=== PATIENT | female | born 1940 | race Caucasian/White ===

== ENCOUNTER → 2023-10-03 07:01 | Outpatient (REF) | payer MEDICARE, OTHER, SELFPAY ==
[2023-10-03 07:52] LABS: % Basophils 0.8 % (0-2); % Eosinophils 3.8 % (0-6); % Immature Granulocytes 0.2 % (0-0.5); % Lymphocytes 35.4 % (20.5-51.1); % Monocytes 9.3 % (1.7-9.3); % Neutrophils 50.5 % (42.2-75.2); Absolute Eosinophils 0.2 10^3/uL (0-0.7); Absolute Lymphocytes 1.7 10^3/uL (1.2-3.4); Absolute Monocytes 0.4 10^3/uL (0.1-0.6); Absolute Neutrophils 2.4 10^3/uL (1.4-6.5); Hematocrit 46.2 % (37.0-47.0); Hemoglobin 15.1 g/dL (12.0-16.0); Mean Corp Hgb Conc. 32.7 g/dL (33.0-37.0); Mean Corpuscular Hgb 29.7 pg (27.0-31.0); Mean Corpuscular Volume 90.8 fL (81.0-99.0); Mean Platelet Volume 8.9 fL (7.4-10.4); Nucleated Red Blood Cells % 0 %; Platelet Count 320 10^3/uL (130-400); Red Blood Cell Count 5.09 10^6/uL (4.20-5.40); Red Cell Dist. Width 13.2 % (11.5-14.5); White Blood Cell Count 4.8 10^3/uL (4.8-10.8)
[2023-10-03 09:14] LABS: ALT (SGPT) 13 U/L (0-35); AST (SGOT) 27 U/L (14-36); Albumin 4.2 g/dl (3.5-5.0); Alkaline Phosphatase 70 U/L (38-126); Blood Urea Nitrogen 18 mg/dl (7-17); Calcium 9.7 mg/dl (8.4-10.2); Carbon Dioxide 30 mmol/L (22-30); Chloride 101 mmol/L (98-107); Glucose 90 mg/dl (70-99); HDL Cholesterol 85 mg/dl; LDL Cholesterol, Calculated 123 mg/dl; Sodium 137 mmol/L (135-145); Total Bilirubin 0.6 mg/dl (0.2-1.3); Total Cholesterol 218 mg/dl (50-199); Total Protein 6.7 g/dl (6.3-8.2); Triglyceride 51 mg/dl (10-149); Very Low Density Lipoprotein 10 mg/dl (0-30); eGFR > 60.00
[2023-10-03 09:45] LABS: TSH 7.23 uIU/ml (0.47-4.68)
== END ==
LOC: REG 07:01
PROVIDERS: ATTENDING PHYSICIAN Internal Medicine
DX: E03.9 Hypothyroidism, unspecified (principal); E78.00 Pure hypercholesterolemia, unspecified; E78.1 Pure hyperglyceridemia
CPT/HCPCS: 36415; 80053; 80061; 84443; 85025

== ENCOUNTER → 2024-02-02 07:13 | Outpatient (REF) | payer MEDICARE, OTHER, SELFPAY ==
[2024-02-02 09:22] LABS: ALT (SGPT) 15 U/L (0-35); AST (SGOT) 26 U/L (14-36); Albumin 4.3 g/dl (3.5-5.0); Alkaline Phosphatase 73 U/L (38-126); Blood Urea Nitrogen 19 mg/dl (7-17); Calcium 9.5 mg/dl (8.4-10.2); Carbon Dioxide 30 mmol/L (22-30); Chloride 98 mmol/L (98-107); Glucose 98 mg/dl (70-99); HDL Cholesterol 91 mg/dl; LDL Cholesterol, Calculated 143 mg/dl; Potassium 4.7 mmol/L (3.5-5.1); Sodium 138 mmol/L (135-145); Total Bilirubin 0.5 mg/dl (0.2-1.3); Total Cholesterol 247 mg/dl (50-199); Total Protein 6.7 g/dl (6.3-8.2); Triglyceride 68 mg/dl (10-149); Very Low Density Lipoprotein 13 mg/dl (0-30); eGFR 55.55
[2024-02-02 09:51] LABS: TSH Reflex To Free T4 4.87 uIU/ml (0.47-4.68)
[2024-02-02 10:19] LABS: Free T4 0.92 ng/dl (0.78-2.19)
== END ==
LOC: REG 07:13
PROVIDERS: ATTENDING PHYSICIAN Internal Medicine
DX: E03.9 Hypothyroidism, unspecified (principal); E78.00 Pure hypercholesterolemia, unspecified; E87.1 Hypo-osmolality and hyponatremia
CPT/HCPCS: 36415; 80053; 80061; 84439; 84443

== ENCOUNTER → 2024-02-19 14:29 | Outpatient (REF) | payer MEDICARE, OTHER, SELFPAY | LOC: RAD 14:29 | PROVIDERS: ATTENDING PHYSICIAN Internal Medicine | DX: Z78.0 Asymptomatic menopausal state (principal) | CPT/HCPCS: 77080 ==

== ENCOUNTER 2024-04-30 15:17 | Observation (INO) | payer MEDICARE, OTHER, SELFPAY ==
[2024-04-30] VITALS (12 sets, daily range): BP systolic 148–186; BP diastolic 86–118; BMI 22.3
--- NOTE | 2024-04-30 12:23 | ED.GENMED ---
History of Present Illness
<Justina Urias PA-C - Last Filed: 05/01/24 00:16>
General
Chief Complaint: Change in Mental Status
Source: patient, family (daughter at bedside) and snf (Nurse at [facility])
Exam Limitations: none
Time Seen by Provider: 04/30/24 11:59
Nursing documentation reviewed up to this point in time: agreed with
History of Present Illness
History of Present Illness:
Patient is a 84 year old female with hx HLD presenting to the emergency department via EMS from [facility] due to episode of reported unresponsiveness this morning. It seems that patient had just finished her chair PT session
when she stood up and passed out. She supposedly had two similar episodes back to back. Per snf - patient had a 'weak' pulse and a few chest compressions were performed prior to patient seemingly waking up.
By time EMS did arrive - patient was alert and oriented, talking.
Patient denies any current complaints at this time - although does not clearly remember events from this morning. She does deny at headache, neck pain, chest pain, shortness of breath, numbness/tingling in extremities
Of note - patient did sustain a mechanical trip and fall yesterday and was seen at [facility] where she had two negative CT scand of head and a minor skin tear on left palm repaired with sutures.
Past History
<Justina Urias PA-C - Last Filed: 05/01/24 00:16>
Past History
ED Past Medical History: Hypercholesterolemia, Hypothyroidism, Psychiatric (Depression) and Other (Fibromyalgia)
ED Past Surgical History: None
Social History
Tobacco: Non-smoker
Alcohol: None
Drug: None
Personal:
Living: alone
Employment: Retired
Review of Systems
<Justina Urias PA-C - Last Filed: 05/01/24 00:16>
Review of Systems
Allergies reviewed?: Yes
All Other Systems: ROS reviewed and negative except as documented in HPI and ROS
Phy Exam
<Justina Urias PA-C - Last Filed: 05/01/24 00:16>
Physical Exam
Physical Exam:
Vitals: Patient's vital signs are stable. Afebrile
General: Patient is well appearing, no acute distress. Nontoxic appearing
Skin: Warm and dry, no rashes. Skin tear to left palm with [address]
Head: Normocephalic, atraumatic
Eyes: Sclera nonicteric. EOMs intact. PERRL. Visual [place] intact. No nystagmus.
Throat: Protecting airway
Neck: Normal ROM, no cervical spine tenderness, no meningismus
Cardiac: Regular rate and rhythm, no murmurs.
Pulm: Normal respiratory effort, no wheezes, rales, rhonchi heard on exam.
Abdomen: Abdomen soft. No abdominal tenderness.
Extremities: No evidence of cyanosis or edema. Strength 5/5 in upper and lower exremities.
Neuro: AAOx3. CN II-XII intact. Speech fluid. No facial droop. Sensation fully intact. No focal neurologic deficits.
Psychiatric: Normal affect.
Scores
<Justina Urias PA-C - Last Filed: 05/01/24 00:16>
NIH Stroke Score
Level of Consciousness: 0 - Alert
LOC Questions: 0-Answers both correctly
LOC Commands: 0-Performs both correctly
Best Horizontal Gaze: 0-Normal
Visual [place]: 0=Normal, no visual loss
Facial Palsy: 0=Normal, symmetrical
Motor - Right Arm: 0=No drift 10 seconds
Motor - Left Arm: 0=No drift 10 seconds
Motor - Right Le-No drift 5 seconds
Motor - Left Le-No drift 5 seconds
Limb Ataxia: 0-Absent
Sensation: 0-Normal
Best Language: 1-Mild aphasia
Dysarthria: 0-Normal
Extinction and Inattention: 0-No abnormality
Total Score:: 1
<Marcello Adan DO - Last Filed: 04/30/24 15:23>
NIH Stroke Score
Total Score:: 1
Course
<Justina Urias PA-C - Last Filed: 05/01/24 00:16>
Orders/Labs/Results
Orders:
Orders
04/30/24 Breakfast
Regular
At Your Request: Limited Participation
Does patient need a safe tray?: No
04/30/24 11:55
Electrocardiogram (*1) Urgent
Reason for Study: Chest Pain
Cardiac Monitoring- Treatment ONCE
EKG- Treatment ONCE
IV Insert/Care/Rem.- Treatment PRN
04/30/24 12:09
Complete Blood Count/With Diff Urgent
Comprehensive Metabolic Panel Urgent
Troponin I Urgent
04/30/24 12:29
0.9% Sodium Chloride 1000 ml [Nss] 1,000 ml IV BOLUS
04/30/24 12:30
CT Head W/o Iv Contrast Urgent
Comment:
Reason For Exam: syncope, recent fall
04/30/24 14:41
Admit/Transfer Patient As Directed
Co-Sign Provider:
Level of Care: Observation services
Assign to:: Telemetry
Physician / Group: Arin
Diagnosis: Syncope
Reason for Telemetry: Syncope
Date to Stop Telemetry: 05/02/24
Time to Stop Telemetry: 11:00
PRN Pain Medication Management As Directed
May give lesser potent ordered pain med per pt: Yes
preference::
Protocol:: Medication orders for pain may be administered in a
manner that supports deferring to patient preference
when the pt is:
- Requesting an ordered lesser potent pain medication.
Least to most potent pain medications are defined
as: acetaminophen < NSAID < tramadol < opioids
(morphine, oxycodone, hydromorphone).
- Requesting a lesser dose of the same medication IF
ORDERED.
- Requesting a less intrusive route of administration
if both routes are prescribed by the provider (PO <
IV).
04/30/24 14:42
Code Status As Directed
Resuscitation Status: Full Code
04/30/24 17:46
Acetaminophen [Tylenol] 650 mg PO Q4HPRN PRN
04/30/24 17:46
Echo 2D MMode Color/Doppler Routine
Reason for Study: syncope
Activity As Directed
Activity Level: Out of Bed- Chair
I&O [Intake/ Output] As Directed
Frequency: q12h
Orthostatic Vital Signs As Directed
Orthostatic VS Frequency: BID
Pneumatic Compression Sleeves As Directed
Type: Knee high
Vital Signs As Directed
Frequency: Per unit guidelines
Weight As Directed
Frequency: Daily
DX Deep Vein Thrombosis Video Routine
04/30/24 18:00
Atorvastatin [Lipitor] 10 mg PO QPM
Nortriptyline [Pamelor] 50 mg PO QPM
05/01/24 06:00
Basic Metabolic Panel IN AM
TSH Reflex To Free T4 IN AM
Levothyroxine [Synthroid] 50 mcg PO DAILY @ 0600
05/01/24 08:00
Aripiprazole [Abilify] 1 mg PO DAILY
Polyethylene Glycol Powder [Miralax] 17 grams PO Q72H
05/02/24 11:00
DC Protocol for Telemetry ONCE
Abnormal Lab Results
04/30/24
12:09
Absolute Monos (auto) 0.7 H 10^3/uL
(0.1-0.6)
Lymphocytes % 16.6 L %
(20.5-51.1)
Sodium 132 L mmol/L
(135-145)
Chloride 96 L mmol/L
(98-107)
BUN 19 H mg/dl
(7-17)
Glucose 105 H mg/dl
(70-99)
Total Protein 6.1 L g/dl
(6.3-8.2)
04/30/24 12:09
04/30/24 12:09
Vital Signs
Initial and Last Documented VS:
Initial Vital Signs
Pulse Resp BP
79 19 148/86
04/30/24 11:55 04/30/24 11:55 04/30/24 11:55
Last Documented Vital Signs
Temp Pulse Resp BP Pulse Ox
97.7 F 89 18 182/104 99
04/30/24 17:42 04/30/24 17:42 04/30/24 17:42 04/30/24 17:42 04/30/24 17:58
<Marcello Adan, DO - Last Filed: 04/30/24 15:23>
Orders/Labs/Results
Orders:
Orders
04/30/24 Breakfast
Regular
At Your Request: Limited Participation
Does patient need a safe tray?: No
04/30/24 11:55
Electrocardiogram (*1) Urgent
Reason for Study: Chest Pain
Cardiac Monitoring- Treatment ONCE
EKG- Treatment ONCE
IV Insert/Care/Rem.- Treatment PRN
04/30/24 12:09
Complete Blood Count/With Diff Urgent
Comprehensive Metabolic Panel Urgent
Troponin I Urgent
04/30/24 12:29
0.9% Sodium Chloride 1000 ml [Nss] 1,000 ml IV BOLUS
04/30/24 12:30
CT Head W/o Iv Contrast Urgent
Comment:
Reason For Exam: syncope, recent fall
04/30/24 14:41
Admit/Transfer Patient As Directed
Co-Sign Provider:
Level of Care: Observation services
Assign to:: Telemetry
Physician / Group: Arin
Diagnosis: Syncope
Reason for Telemetry: Syncope
Date to Stop Telemetry: 05/02/24
Time to Stop Telemetry: 11:00
PRN Pain Medication Management As Directed
May give lesser potent ordered pain med per pt: Yes
preference::
Protocol:: Medication orders for pain may be administered in a
manner that supports deferring to patient preference
when the pt is:
- Requesting an ordered lesser potent pain medication.
Least to most potent pain medications are defined
as: acetaminophen < NSAID < tramadol < opioids
(morphine, oxycodone, hydromorphone).
- Requesting a lesser dose of the same medication IF
ORDERED.
- Requesting a less intrusive route of administration
if both routes are prescribed by the provider (PO <
IV).
04/30/24 14:42
Code Status As Directed
Resuscitation Status: Full Code
04/30/24 17:46
Acetaminophen [Tylenol] 650 mg PO Q4HPRN PRN
04/30/24 17:46
Echo 2D MMode Color/Doppler Routine
Reason for Study: syncope
Activity As Directed
Activity Level: Out of Bed- Chair
I&O [Intake/ Output] As Directed
Frequency: q12h
Orthostatic Vital Signs As Directed
Orthostatic VS Frequency: BID
Pneumatic Compression Sleeves As Directed
Type: Knee high
Vital Signs As Directed
Frequency: Per unit guidelines
Weight As Directed
Frequency: Daily
DX Deep Vein Thrombosis Video Routine
04/30/24 18:00
Atorvastatin [Lipitor] 10 mg PO QPM
Nortriptyline [Pamelor] 50 mg PO QPM
05/01/24 06:00
Basic Metabolic Panel IN AM
TSH Reflex To Free T4 IN AM
Levothyroxine [Synthroid] 50 mcg PO DAILY @ 0600
05/01/24 08:00
Aripiprazole [Abilify] 1 mg PO DAILY
Polyethylene Glycol Powder [Miralax] 17 grams PO Q72H
05/02/24 11:00
DC Protocol for Telemetry ONCE
Abnormal Lab Results
04/30/24
12:09
Absolute Monos (auto) 0.7 H 10^3/uL
(0.1-0.6)
Lymphocytes % 16.6 L %
(20.5-51.1)
Sodium 132 L mmol/L
(135-145)
Chloride 96 L mmol/L
(98-107)
BUN 19 H mg/dl
(7-17)
Glucose 105 H mg/dl
(70-99)
Total Protein 6.1 L g/dl
(6.3-8.2)
04/30/24 12:09
04/30/24 12:09
Vital Signs
Initial and Last Documented VS:
Initial Vital Signs
Pulse Resp BP
79 19 148/86
04/30/24 11:55 04/30/24 11:55 04/30/24 11:55
Last Documented Vital Signs
Temp Pulse Resp BP Pulse Ox
97.7 F 89 18 182/104 99
04/30/24 17:42 04/30/24 17:42 04/30/24 17:42 04/30/24 17:42 04/30/24 17:58
<Justina Urias PA-C - Last Filed: 05/01/24 00:16>
MDM/Problems Addressed
Differential Diagnosis Includes:
Not limited to: vasovagal syncope, orthostatic hypotension, cardiac arrhythmia, CVA, etc
MDM/Problems Addressed:
84 year old female presenting following suspected syncopal event this morning. Patient did receive a few chest compressions due to nursing staff feeling weak/absent pulse. Patient arrives via EMS alert and oriented. Patient is conversational and
answering questions appropriately. Cardio/pulmonary assessment unremarkable. Patient has strong and equal pulses. No focal neurologic deficits. She does have very minor difficulty finding words. NIH of 1. Vital signs are stable. EKG obtained in
triage shows NSR without any acute signs of ischemia. History most consistent with a syncopal event. Lower suspicion for central process such as CVA although in differential. Will obtain basic labs and head CT. Will give IVF.
Update: Labs reviewed. No clinically significant abnormalities. Troponin undetectable. CT head without any acute abnormalities.
Update: After speaking with daughter - it seems there was an additional syncopal event a few weeks ago while patient was sitting. Given patient with multiple high risk syncopal events - concern for possible arrhythmia vs underlying cardiac etiology.
Patient will be admitted to hospital for cardiac consult and further telemetry monitoring. Patient accepted to hospitalist condition in stable condition.
Chronic conditions affecting care:
HLD
Acute Exacerbation and/or Progression of Chronic Illness:
N/A
<Justina Urias PA-C - Last Filed: 05/01/24 00:16>
*Radiology
Radiology exam reviewed: preliminary read by ED provider (Reviewed by me - no acute intracranial abnormalities) and radiology read reviewed
*Pulse Oximetry
Patient hypoxic: no
*EKG
Interpreted by ED Provider?: Yes
EKG Intrepretation Date: 05/01/24
Interpretation: normal
Comparison EKG: changes noted
Heart Rate: 79
Rate: normal
Rhythm: sinus
[place]: normal axis
Interval: normal interval
QRS Pattern: normal QRS
Ischemia: no ischemia
*Abalone Sheller Interpretation
Rate: normal
Interpretation: normal
Heart Rate: 74
Rhythm: sinus
*Critical Care Note
Total Time (30-74mins, 75-104mins- exclusive of procedures): Not Applicable
<Justina Urias PA-C - Last Filed: 05/01/24 00:16>
Patient Management
Discussion with other providers: Hospitalist
Escalation/DeEscalation of care consider admission/obs:
Admit for cardiac consult/ telemetry monitoring
ED Attending Note
<Justina Urias PA-C - Last Filed: 05/01/24 00:16>
-
Portions of this chart may have been created with voice recognition software.� Occasional wrong word or��sound alike� substitutions may have occurred due to the inherent limitations of voice recognition software.
<Marcello Adan DO - Last Filed: 04/30/24 15:23>
ED Attending Note
Patient seen and examined by attending physician: Yes
I performed a history and physical exam of patient and discussed management with resident, I reviewed resident's note and agree with documented findings and plan of care.: Yes
ED Attending Note:
I reviewed and agree with history and treatment plan by Justina Santiago. My exam reveals 84-year-old female in no acute distress. Patient has had multiple syncope episodes. Unclear etiology. She had several chest compressions after syncope.
Patient requires further evaluation and monitoring. No dysrhythmia seen on monitoring or EKG in ED. Admit to hospitalist.
Discharge Plan
Departure
Patient Disposition: Admit
Date of Disposition: 04/30/24
Time of Disposition: 14:13
Presentation/result/management discussed w/ accepting MD/DO: Hospitalist
Discharge Problem:
Syncope
Interventions
Interventions:
*Risk Screen - Suicide Last Done: 04/30/24 11:57
*General Assessment Last Done: 04/30/24 11:57
*Neglect/Abuse Screening Last Done: 04/30/24 11:57
*ED COVID-19 Vaccine History Last Done: 04/30/24 11:57
*Nursing Disposition Last Done: 04/30/24 17:23
ED- Neurological Assessment Last Done: 04/30/24 16:17
ED Swallowing Screen Last Done: 04/30/24 16:16
Discharge Date and Time
Discharge Date/Time: 04/30/24 17:23
[2024-04-30 12:25] LABS: % Basophils 0.5 % (0-2); % Eosinophils 0.1 % (0-6); % Immature Granulocytes 0.4 % (0-0.5); % Lymphocytes 16.6 % (20.5-51.1); % Monocytes 9.2 % (1.7-9.3); % Neutrophils 73.2 % (42.2-75.2); Absolute Lymphocytes 1.3 10^3/uL (1.2-3.4); Absolute Monocytes 0.7 10^3/uL (0.1-0.6); Absolute Neutrophils 5.5 10^3/uL (1.4-6.5); Hematocrit 42.4 % (37.0-47.0); Mean Corpuscular Hgb 30.2 pg (27.0-31.0); Mean Corpuscular Volume 91.4 fL (81.0-99.0); Nucleated Red Blood Cells % 0 %; Platelet Count 241 10^3/uL (130-400); Red Blood Cell Count 4.64 10^6/uL (4.20-5.40); Red Cell Dist. Width 13.7 % (11.5-14.5); White Blood Cell Count 7.5 10^3/uL (4.8-10.8)
[2024-04-30 12:46] LABS: ALT (SGPT) 15 U/L (0-35); AST (SGOT) 24 U/L (14-36); Albumin 3.9 g/dl (3.5-5.0); Alkaline Phosphatase 52 U/L (38-126); Blood Urea Nitrogen 19 mg/dl (7-17); Calcium 8.7 mg/dl (8.4-10.2); Carbon Dioxide 26 mmol/L (22-30); Chloride 96 mmol/L (98-107); Glucose 105 mg/dl (70-99); Potassium 4.8 mmol/L (3.5-5.1); Sodium 132 mmol/L (135-145); Total Bilirubin 0.6 mg/dl (0.2-1.3); Total Protein 6.1 g/dl (6.3-8.2); eGFR > 60.00
[2024-04-30] MEDS: NSS 1000 IV (12:46)
[2024-04-30 12:57] LABS: Troponin I < 0.012 ng/ml
--- NOTE | 2024-04-30 14:27 | HPS.HSE ---
Family Physician
-
Family Physician: INTERVIEWE UNKNOWN - PT NOT
Chief Complaint
-
Syncope
History of Present Illness
Patient is an 84 y/o female past medical history of hyperlipidemia, hypothyroidism, depression and fibromyalgia who presents following a syncopal episode. Patient reports she had just finished up an exercise class at her independent living
facility. She was getting ready to back to her room when she passed out. She has no recollection of the events as the next thing she remembers is being the ambulance. Apparently staff at the facility could find a pulse and gave her 2-3 chest
compressions and she woke up. Upon EMS arrival she was awake and alert. Patient reports a similar episode a few months ago while she was eating dinner.
Medical History
Past Medical History
Past Medical History: Reports Other
Additional Past Medical History:
Hyperlipidemia
Hypothyroidism
Depression
Fibromyalgia
Past Surgical History: Reports None
Social History
Tobacco: Non-smoker
Alcohol: None
Living: Other (Independent Living Apartment at [facility])
Family History
Family History: Not pertinent
Allergies / Home Medications
Allergies reflects when Allergies were last updated in [facility].
Home Medications with original date entered in [facility]
Allergy/Medication List:
Allergies
Allergy/AdvReac Type Severity Reaction Status Date / Time
amoxicillin [From Augmentin] Allergy Hives Verified 05/27/22 10:07
bacitracin Allergy Rash Verified 05/27/22 10:07
[From Neosporin
([id number])]
clavulanic acid Allergy Hives Verified 05/27/22 10:07
[From Augmentin]
neomycin Allergy Rash Verified 05/27/22 10:07
[From Neosporin
([id number])]
polymyxin B Allergy Rash Verified 05/27/22 10:07
[From Neosporin
([id number])]
sulfamethoxazole Allergy Rash Verified 05/27/22 10:07
[From Bactrim]
Tetracyclines Allergy Rash Verified 05/27/22 10:07
trimethoprim [From Bactrim] Allergy Rash Verified 05/27/22 10:07
Home Medications
levothyroxine 50 mcg tablet 50 mcg PO DAILY Thyroid 12/19/19
aripiprazole 2 mg tablet 1 mg PO DAILY Mental Health/Anxiety 09/14/21
biotin 5,000 mcg disintegrating tablet 5,000 mcg PO DAILY Supplement 04/07/22
cyanocobalamin (vitamin B-12) 1,000 mcg tablet (Vitamin B-12) 1,000 mcg PO DAILY Supplement 04/07/22
cholecalciferol (vitamin D3) 50 mcg (2,000 unit) tablet (Vitamin D3) 50 mcg PO DAILY 04/30/24
nortriptyline 25 mg capsule 50 mg PO QPM 04/30/24
polyethylene glycol 3350 17 gram oral powder packet (Miralax) 17 g PO Q72H 04/30/24
simvastatin 10 mg tablet 10 mg PO QPM 04/30/24
Review of Systems
-
A 12 point ROS was completed and negative except as noted: Yes
Constitutional: Denies Fever or Chills
Respiratory: Denies Cough or Trouble Breathing
Cardiac: Denies Chest Pain or Palpitations
Abdomen/GI: Denies Abdominal Pain, Nausea, Vomiting or Diarrhea
Physical Exam
Vital Signs
Vital Signs
Temp Pulse Resp BP Pulse Ox
97.8 F 93 9 186/118 96
04/30/24 11:57 04/30/24 14:15 04/30/24 14:15 04/30/24 14:00 04/30/24 11:57
Physical Exam
General: Comfortable and Conversant
HEENT: Anicteric and Moist mucous membranes
Respiratory: Clear and Non Labored Respirations
Cardiac: S1/S2 and Regular Rhythm; No Murmur
GI: Soft and Non Tender
Genito-urinary: Clear Urine
Musculoskeletal: No Clubbing, No Cyanosis and No Edema
Skin: Warm and Dry
Neuro: Awake, Alert, Oriented and Nonfocal/grossly intact
Psych: Calm
Laboratory Results
-
04/30/24 12:09
04/30/24 12:09
Laboratory Results
Total Bilirubin 0.6 mg/dl (0.2-1.3) 04/30/24 12:09
AST 24 U/L (14-36) 04/30/24 12:09
ALT 15 U/L (0-35) 04/30/24 12:09
Alkaline Phosphatase 52 U/L (38-126) 04/30/24 12:09
Troponin I < 0.012 ng/ml 04/30/24 12:09
Data Reviewed
-
CT Scan: Report Reviewed by me
Lab Data: Labs Reviewed by me
Impression/Plan
-
Syncope
-Monitor on Telemetry
-Check Echocardiogram
-Check orthostatic VS
-Consult Cardiology
Hyponatremia, mild
-Recheck sodium in AM
Hypothyroidism
-Check TSH
-Continue levothyroxine
Hyperlipidemia
-Continue simvastatin
Depression/Fibromyalgia
-Continue nortriptyline and aripoprazole
DVT proph: SCDs
Code Status: Full Code
--- NOTE | 2024-04-30 15:42 | CON.CAR ---
Consultation
Consultation Request
Date/Time Consultation Requested: April 30, 2024
Date/Time Consultation Performed: April 30, 2024
Requesting Provider: Hospitalist
Performing Provider: Dr Bishnu Perez
Reason for Consultation: Syncope
Medical History
-
Chief Complaint: Passed out
History of Present Illness:
Patient is a 84 year old female brought to the emergency department at [place] via emergency services from [facility]. She had been doing physical therapy and had just completed physical therapy. She recalls that she then
tried to ' get up' and that is the last thing that she remembers clearly. By report patient lost consciousness but there is no report of any traumatic injury. It is noted that staff at [facility] attempted to feel a pulse but could not and did '
1 or 2 chest compressions' until the patient demonstrated signs of consciousness. She recalls that she was otherwise feeling well prior to this event. She admits her memory of the event is not crystal-clear. She tells me she currently feels well
and back to baseline. Leading up to this event she has had no fevers chills night sweats, no chest pain or dyspnea. Currently denies all the symptoms as well.
On presentation blood pressure 144/86, telemetry sinus rhythm with a heart rate of 90 bpm. Respiratory rate 18, pulse ox on room air 99%.
Presenting EKG is sinus rhythm at 78 bpm, LVH and left atrial abnormality
Hemoglobin and hematocrit 14 and 42, sodium 132, BUN and creatinine 19 and 0.9, potassium 4.2
CT scan of the head with moderate cortical atrophy and chronic ischemic changes with no acute findings.
PMH:
Orthostatic hypotension, symptomatic and recurrent
- She was seen in the emergency department and March 2023 for what sounds like a fall from orthostasis.
- She was seen in the emergency department in 2021 for dizziness and hyponatremia
- She was admitted in March 2022 for evaluation of recurrent episodes of syncope felt to be related to orthostasis after an extensive evaluation. Orthostatic hypotension noted to resolve with IV fluids
Hypercholesterolemia
Hypothyroidism
Depression
Fibromyalgia
Echocardiogram March 2022
1. Normal left ventricular size and systolic function without regional wall
motion abnormalities. Estimated LV ejection fraction of 55 to 60% by visual
estimation and by Carrillo's method. Normal diastolic function.
2. Normal right ventricular size and function.
3. Trace mitral regurgitation.
4. Thickened trileaflet aortic valve with normal excursion without aortic
stenosis. Trace aortic regurgitation.
5. Trace tricuspid regurgitation with estimated pulmonary artery pressure of
25 mmHg, estimating a right atrial pressure of 8mmHG.
6. No pericardial effusion.
Social History
Tobacco: Non-Smoker
Alcohol: None
Drug: None
Personal:
Living: Assisted Living ([facility] living)
Family History
Family History: Reviewed & Not Pertinent
Allergies / Home Medications
Allergy/AdvReac Type Severity Reaction Status Date / Time
amoxicillin [From Augmentin] Allergy Hives Verified 05/27/22 10:07
bacitracin Allergy Rash Verified 05/27/22 10:07
[From Neosporin
([id number])]
clavulanic acid Allergy Hives Verified 05/27/22 10:07
[From Augmentin]
neomycin Allergy Rash Verified 05/27/22 10:07
[From Neosporin
([id number])]
polymyxin B Allergy Rash Verified 05/27/22 10:07
[From Neosporin
([id number])]
sulfamethoxazole Allergy Rash Verified 05/27/22 10:07
[From Bactrim]
Tetracyclines Allergy Rash Verified 05/27/22 10:07
trimethoprim [From Bactrim] Allergy Rash Verified 05/27/22 10:07
�Medication �Instructions �Recorded �Confirmed �Type
levothyroxine 50 mcg tablet 50 mcg PO DAILY Thyroid 12/19/19 04/30/24 History
aripiprazole 2 mg tablet 1 mg PO DAILY Mental Health/Anxiety 09/14/21 04/30/24 History
biotin 5,000 mcg disintegrating 5,000 mcg PO DAILY Supplement 04/07/22 04/30/24 History
tablet
cyanocobalamin (vitamin B-12) 1,000 mcg PO DAILY Supplement 04/07/22 04/30/24 History
1,000 mcg tablet (Vitamin B-12)
cholecalciferol (vitamin D3) 50 50 mcg PO DAILY 04/30/24 04/30/24 History
mcg (2,000 unit) tablet (Vitamin
D3)
nortriptyline 25 mg capsule 50 mg PO QPM 04/30/24 04/30/24 History
polyethylene glycol 3350 17 gram 17 g PO Q72H 04/30/24 04/30/24 History
oral powder packet (Miralax)
simvastatin 10 mg tablet 10 mg PO QPM 04/30/24 04/30/24 History
Review of Systems
-
History Source: Patient and Family (Son and son-in-law are both at bedside)
All other systems: Negative unless noted
Constitutional: No Symptoms
EENT: No Symptoms
Respiratory: No Symptoms
Cardiac: No Symptoms
Abdomen/GI: No Symptoms
: No Symptoms
Musculoskeletal: No Symptoms
Skin: No Symptoms
Neurological: Other (Admitted after an episode of syncope, currently asymptomatic)
Endocrine: No Symptoms
Physical Exam
Vital Signs
Temp Pulse Resp BP Pulse Ox
97.8 F 90 18 167/95 99
04/30/24 11:57 04/30/24 15:29 04/30/24 15:29 04/30/24 15:29 04/30/24 15:29
Lab Results
04/30/24 12:09
04/30/24 12:09
Troponin I < 0.012 ng/ml 04/30/24 12:09
Physical Exam
General: Well Developed, Well Nourished and No Apparent Distress
HEENT: Normocephalic, Anicteric and Moist Mucous Membranes
Respiratory: Clear and Non Labored Respirations
Cardiac: S1/S2, Regular Rhythm and Murmur (Grade 1/6 apical holosystolic murmur, no rubs, normal PMI)
Breast: Deferred by me
GI: Soft, Non Tender, Non Distended and Normal Bowel Sounds
Rectal: Deferred by Provider
Musculoskeletal: No Clubbing, No Cyanosis and No Edema
Skin: Warm and Dry
Neuro: Awake, Alert and AO x 3
Psych: Calm
Impression / Plan
-
Impression:
Admitted with an episode of syncope
- On presentation blood pressure 144/86, telemetry sinus rhythm with a heart rate of 90 bpm. Respiratory rate 18, pulse ox on room air 99%.
- Presenting EKG is sinus rhythm at 78 bpm, LVH and left atrial abnormality
- Hemoglobin and hematocrit 14 and 42, sodium 132, BUN and creatinine 19 and 0.9, potassium 4.2
- CT scan of the head with moderate cortical atrophy and chronic ischemic changes with no acute findings.
Orthostatic hypotension, symptomatic and recurrent
- She was seen in the emergency department and March 2023 for what sounds like a fall from orthostasis.
- She was seen in the emergency department in 2021 for dizziness and hyponatremia
- She was admitted in March 2022 for evaluation of recurrent episodes of syncope felt to be related to orthostasis after an extensive evaluation. Orthostatic hypotension noted to resolve with IV fluids
Hypercholesterolemia
Hypothyroidism
Depression
Fibromyalgia
Echocardiogram March 2022
1. Normal left ventricular size and systolic function without regional wall
motion abnormalities. Estimated LV ejection fraction of 55 to 60% by visual
estimation and by Carrillo's method. Normal diastolic function.
2. Normal right ventricular size and function.
3. Trace mitral regurgitation.
4. Thickened trileaflet aortic valve with normal excursion without aortic stenosis. Trace aortic regurgitation.
5. Trace tricuspid regurgitation with estimated pulmonary artery pressure of 25 mmHg, estimating a right atrial pressure of 8mmHG.
6. No pericardial effusion.
Recommendations:
Etiology of syncope is very likely recurrent orthostasis/dysautonomia.
Doubt any significant underlying structural heart disease, acute myocardial infarction/ischemia, significant AV conduction system disease or sick sinus syndrome.
- Continue close observation overnight following telemetry and blood work.
- Assess orthostatic vital signs
- Check echocardiogram
- Focus on avoiding/minimizing triggers, avoiding volume depletion and increasing dietary salt intake. If medical therapy should be required, midodrine is often the most effective drug therapy but may be limited by HTN.
Total time 78 minutes
Data Reviewed
-
EKG: Tracing Personally Visualized and interpreted
CT Scan: Report Reviewed by me
Labs: Labs Reviewed by me
Old Records: Reviewed
--- NOTE | 2024-04-30 16:29 | W.PN.UPDATE ---
Update Note
Progress Note Update
This is an addendum to the H&P written by Samaria Wilsno on 04/30/2024. Patient seen and examined independently with PA.
84-year-old female past medical history of hyperlipidemia, hypothyroidism, depression, fibromyalgia, presenting for unresponsive this morning while standing up during PT. No prodrome.
Labs unremarkable. Blood pressure elevated. Telemetry. Check orthostatic vital signs check echocardiogram. Cardiology consulted
[2024-04-30] MEDS: LIPITOR 10 MG PO (18:58)
[2024-04-30] MEDS: PAMELOR 50 MG PO (19:03)
--- NOTE | 2024-04-30 19:30 | PTCARENOTE ---
Pt received from day shift RN at change of shift. Pt pleasant, AAOX3, VSS, and absent of pain. Pt bed in lowest position and call [place] within reach. Pt educated on importance of call [place] usage, pt relays understanding and cooperation.
[2024-05-01] VITALS (9 sets, daily range): BP systolic 129–174; BP diastolic 79–100; PULSE 78–96; O2SAT 98
[2024-05-01] MEDS: SYNTHROID 50 MCG PO (05:33)
[2024-05-01 09:11] LABS: Blood Urea Nitrogen 17 mg/dl (7-17); Calcium 8.8 mg/dl (8.4-10.2); Carbon Dioxide 25 mmol/L (22-30); Chloride 101 mmol/L (98-107); Estimated Creatinine Clearance 44 ml/min; Glucose 102 mg/dl (70-99); Potassium 4.7 mmol/L (3.5-5.1); Sodium 137 mmol/L (135-145); eGFR > 60.00
[2024-05-01 10:03] LABS: Free T4 1.38 ng/dl (0.78-2.19)
[2024-05-01] MEDS: ABILIFY 1 MG PO (10:12)
--- NOTE | 2024-05-01 12:42 | W.PN.HOSP.TC ---
Today's Communication/Plan
-
Monitor vital signs see plan
Continue to monitor orthostatics
Apply teds
Lovenox for DVT prophylaxis
PT/OT
Assessment / Plan
Assessment / Plan
General: Comfortable and Conversant
HEENT: Anicteric and Moist mucous membranes
Respiratory: Clear and Non Labored Respirations
Cardiac: S1/S2 and Regular Rhythm; No Murmur
GI: Soft and Non Tender
Musculoskeletal: No Edema
Neuro: Awake, Alert, Oriented and Nonfocal/grossly intact
Psych: Calm
Syncope
Suspect secondary to orthostatic hypotension
Orthostatic positive
Apply teds
Echo with preserved EF
Cardiology following
Continue to monitor orthostatics
Hyponatremia, mild
Improved
Hypothyroidism
-Check TSH 7.8 however free t4 better than before; monitor
-Continue levothyroxine
Hyperlipidemia
-Continue simvastatin
Depression/Fibromyalgia
-Continue nortriptyline and aripoprazole
DVT proph: SCDs,lovenox
Code Status: Full Code
Anticipated Discharge: Within 24 hours
Subjective/Interval History
-
Date of Service: May 01, 2024
Denies pain
Objective Data
-
Labs:
Laboratory Results
05/01/24
07:36
Sodium 137
Potassium 4.7
Chloride 101
Carbon Dioxide 25
BUN 17
Creatinine 0.9
Glucose 102 H
Calcium 8.8
Vital Signs:
Vital Signs
Temp Pulse Resp BP Pulse Ox
98.2 F 82 18 138/82 96
05/01/24 07:07 05/01/24 07:07 05/01/24 07:07 05/01/24 07:07 05/01/24 07:07
I&O
04/30/24 05/01/24 05/02/24
06:59 06:59 06:59
Intake Total 120 / 120
Output Total 1000 / 1000
Balance -880 / -880
--- NOTE | 2024-05-01 14:17 | CM ---
Addendum entered by Blanche Muir 05/01/24 14:52:
Patient is current with [facility], referral sent
[facility]
[phone]

Addendum entered by Blanche Muir 05/01/24 14:43:
[facility]
Report [phone]
Original Note:
Patient was admitted under OBS, Tobar letter provided to patient and signed by patient. ict development manager reviewed patient's chart and met with patient and patient resides on 2nd floor at [facility]. Patient reports
she is independent with adl's and ambulation.
PCP: Dr. Napier
Pharmacy: [facility]
Plan; Patient to return to to [facility] when stable.
--- NOTE | 2024-05-01 16:32 | W.PN.CARDCBS ---
Today's Communication / Plan
-
Telemetry stable. Echo overall unremarkable.
Symptoms likely due to orthostasis.
Encourage p.o. hydration. With blood pressure being still labile we will hold off on midodrine for now.
Physical therapy evaluation and avoid possible triggers.
Impression / Plan
-
Impression:
Admitted with an episode of syncope
- On presentation blood pressure 144/86, telemetry sinus rhythm with a heart rate of 90 bpm. Respiratory rate 18, pulse ox on room air 99%.
- Presenting EKG is sinus rhythm at 78 bpm, LVH and left atrial abnormality
- Hemoglobin and hematocrit 14 and 42, sodium 132, BUN and creatinine 19 and 0.9, potassium 4.2
- CT scan of the head with moderate cortical atrophy and chronic ischemic changes with no acute findings.
Orthostatic hypotension, symptomatic and recurrent
- She was seen in the emergency department and March 2023 for what sounds like a fall from orthostasis.
- She was seen in the emergency department in 2021 for dizziness and hyponatremia
- She was admitted in March 2022 for evaluation of recurrent episodes of syncope felt to be related to orthostasis after an extensive evaluation. Orthostatic hypotension noted to resolve with IV fluids
Hypercholesterolemia
Hypothyroidism
Depression
Fibromyalgia
Echocardiogram March 2022
1. Normal left ventricular size and systolic function without regional wall
motion abnormalities. Estimated LV ejection fraction of 55 to 60% by visual
estimation and by Carrillo's method. Normal diastolic function.
2. Normal right ventricular size and function.
3. Trace mitral regurgitation.
4. Thickened trileaflet aortic valve with normal excursion without aortic stenosis. Trace aortic regurgitation.
5. Trace tricuspid regurgitation with estimated pulmonary artery pressure of 25 mmHg, estimating a right atrial pressure of 8mmHG.
6. No pericardial effusion.
Echo April 2024, EF 55 to 60% with no significant valve disease.
Recommendations:
Etiology of syncope is very likely recurrent orthostasis/dysautonomia.
Doubt any significant underlying structural heart disease, acute myocardial infarction/ischemia, significant AV conduction system disease or sick sinus syndrome.
Repeat echo overall normal. No significant events on telemetry.
Blood pressure continues to be labile. Encouraged fluid intake, stockings, and avoidance of possible triggers.
If medical therapy should be required, midodrine is often the most effective drug therapy but may be limited by HTN.
Progress Note - Ground [employer] Director
Subjective
Date of Service: May 01, 2024
Still having some dizziness but slightly improved.
Objective
Labs:
04/30/24 12:09
05/01/24 07:36
Labs
Hgb 14.0 g/dL (12.0-16.0) 04/30/24 12:09
Hct 42.4 % (37.0-47.0) 04/30/24 12:09
Plt Count 241 10^3/uL (130-400) 04/30/24 12:09
Sodium 137 mmol/L (135-145) 05/01/24 07:36
Potassium 4.7 mmol/L (3.5-5.1) 05/01/24 07:36
BUN 17 mg/dl (7-17) 05/01/24 07:36
Creatinine 0.9 mg/dL (0.6-1.0) 05/01/24 07:36
Glucose 102 mg/dl (70-99) H 05/01/24 07:36
Troponins
04/30/24
12:09
Troponin I < 0.012
Vital Signs and I&O:
Vital Signs
Temp Pulse Resp BP Pulse Ox
97.6 F 84 16 165/86 98
05/01/24 15:24 05/01/24 15:24 05/01/24 15:24 05/01/24 15:24 05/01/24 15:24
Vital Signs
Temp Pulse Resp BP Pulse Ox
97.6 F 84 16 165/86 98
05/01/24 15:24 05/01/24 15:24 05/01/24 15:24 05/01/24 15:24 05/01/24 15:24
Intake & Output
04/29/24 04/30/24 05/01/24 05/02/24
06:59 06:59 06:59 06:59
Intake Total 120 / 120
Output Total 1000 / 1000
Balance -880 / -880
Physical Exam
Physical Exam
GEN: No distress, awake, Ox3
HEENT: supple, anicteric, mmm
LUNGS: CTA, no wheezes/rales
CV: Reg, S1/S2, 1/6 syst LSB, no gallop
ABD: soft, BS+, NT/ND
EXT: No edema
NEURO: Gross non-focal
SKIN: No rash
[2024-05-01] MEDS: LOVENOX 40 MG SC (17:36)
[2024-05-01] MEDS: PAMELOR 50 MG PO (17:36)
[2024-05-01] MEDS: LIPITOR 10 MG PO (17:36)
[2024-05-02 03:11] VITALS: BP 167/84
[2024-05-02] MEDS: SYNTHROID 50 MCG PO (05:43)
[2024-05-02 07:27] VITALS: BP 148/88
--- NOTE | 2024-05-02 07:28 | W.PN.CARDCBS ---
Today's Communication / Plan
-
Late entry note
Patient was seen, examined and plan made on 05/01/24, but documentation delayed until 05/02/24.
Add TEDS thigh high
Impression / Plan
-
PCP: Dr. Napier
Cardiology: None
Impression:
Admitted with an episode of syncope
Orthostatic hypotension, symptomatic and recurrent
Hypercholesterolemia
Hypothyroidism
Depression
Fibromyalgia
Echocardiogram March 2022: EF 55%, normal RV size and function, trace MR, trace aortic regurgitation
Echo 04/30/2024: EF 55 to 60%, mild concentric LVH, trace MR, trace aortic insufficiency, trace TR
Plan:
-Patient with orthostasis. Will add thigh high TEDS
-Echo completed 05/02/24 and noted above, no significant valve disease, EF preserved
-Tele reviewed by me and no arrhythmia
-Focus on avoiding/minimizing triggers, avoiding volume depletion and increasing dietary salt intake. If medical therapy should be required, midodrine is often the most effective drug therapy but may be limited by HTN.
Progress Note - Supervisor Weaving
Subjective
Date of Service: May 02, 2024
Still dizzy
Objective
Labs:
Labs
Hgb 14.0 g/dL (12.0-16.0) 04/30/24 12:09
Hct 42.4 % (37.0-47.0) 04/30/24 12:09
Plt Count 241 10^3/uL (130-400) 04/30/24 12:09
Sodium 137 mmol/L (135-145) 05/01/24 07:36
Potassium 4.7 mmol/L (3.5-5.1) 05/01/24 07:36
BUN 17 mg/dl (7-17) 05/01/24 07:36
Creatinine 0.9 mg/dL (0.6-1.0) 05/01/24 07:36
Glucose 102 mg/dl (70-99) H 05/01/24 07:36
Troponins
04/30/24
12:09
Troponin I < 0.012
Vital Signs and I&O:
Vital Signs
Temp Pulse Resp BP Pulse Ox
98.4 F 80 19 148/88 95
05/02/24 07:27 05/02/24 07:27 05/02/24 07:27 05/02/24 07:27 05/02/24 07:27
Vital Signs
Temp Pulse Resp BP Pulse Ox
98.4 F 80 19 148/88 95
05/02/24 07:27 05/02/24 07:27 05/02/24 07:27 05/02/24 07:27 05/02/24 07:27
Intake & Output
04/30/24 05/01/24 05/02/24 05/03/24
06:59 06:59 06:59 06:59
Intake Total 120 / 120 900 / 900
Output Total 1000 / 1000
Balance -880 / -880 900 / 900
Physical Exam
Physical Exam
GEN: NAD
HEENT: mmm
LUNGS: No audible wheeze
CV: SR on tele
ABD: ND
EXT: No edema
NEURO: Gross non-focal
SKIN: No rash
[2024-05-02] MEDS: ABILIFY 1 MG PO (08:02)
[2024-05-02 08:27] LABS: % Basophils 0.8 % (0-2); % Eosinophils 2.6 % (0-6); % Immature Granulocytes 0.3 % (0-0.5); % Lymphocytes 20.8 % (20.5-51.1); % Monocytes 12.9 % (1.7-9.3); % Neutrophils 62.6 % (42.2-75.2); Absolute Basophils 0.1 10^3/uL (0-0.2); Absolute Eosinophils 0.2 10^3/uL (0-0.7); Absolute Lymphocytes 1.3 10^3/uL (1.2-3.4); Absolute Monocytes 0.8 10^3/uL (0.1-0.6); Absolute Neutrophils 3.8 10^3/uL (1.4-6.5); Hematocrit 42.4 % (37.0-47.0); Hemoglobin 14.2 g/dL (12.0-16.0); Mean Corp Hgb Conc. 33.5 g/dL (33.0-37.0); Mean Corpuscular Hgb 30.5 pg (27.0-31.0); Mean Corpuscular Volume 91.2 fL (81.0-99.0); Mean Platelet Volume 9.1 fL (7.4-10.4); Nucleated Red Blood Cells % 0 %; Platelet Count 255 10^3/uL (130-400); Red Blood Cell Count 4.65 10^6/uL (4.20-5.40); Red Cell Dist. Width 13.5 % (11.5-14.5); White Blood Cell Count 6.1 10^3/uL (4.8-10.8)
[2024-05-02 09:45] LABS: Blood Urea Nitrogen 16 mg/dl (7-17); Calcium 8.6 mg/dl (8.4-10.2); Carbon Dioxide 28 mmol/L (22-30); Chloride 96 mmol/L (98-107); Estimated Creatinine Clearance 44 ml/min; Glucose 93 mg/dl (70-99); Potassium 4.4 mmol/L (3.5-5.1); Sodium 133 mmol/L (135-145); eGFR > 60.00
--- NOTE | 2024-05-02 11:12 | W.PN.HOSP.TC ---
Addendum entered and electronically signed by Sean Syed MD 05/02/24 14:07:
Discussed with cardiology. Appears cardiology is planning on Holter monitor outpatient. Discussed with daughter regarding importance of TEDS with ambulation.
Addendum entered and electronically signed by Sean Syed MD 05/02/24 11:46:
Discussed with RN. Orthostasis negative
Discharge today
Called son, left voicemail
Time of discharge 36 minutes
Original Note:
Today's Communication/Plan
-
Monitor vital signs see plan
Continue with teds
Check orthostatics again
Possible discharge today
Assessment / Plan
Assessment / Plan
General: Comfortable and Conversant
HEENT: Anicteric and Moist mucous membranes
Respiratory: Clear and Non Labored Respirations
Cardiac: S1/S2 and Regular Rhythm; No Murmur
GI: Soft and Non Tender
Musculoskeletal: No Edema
Neuro: Awake, Alert, Oriented and Nonfocal/grossly intact
Psych: Calm
Syncope
Suspect secondary to orthostatic hypotension
Orthostatic positive; asked RN to document latest ortho. patient now feeling better
Apply teds
Echo with preserved EF
Cardiology following
Continue to monitor orthostatics
Hyponatremia, mild
Improved
Hypothyroidism
-Check TSH 7.8 however free t4 better than before; monitor
-Continue levothyroxine
Hyperlipidemia
-Continue simvastatin
Depression/Fibromyalgia
-Continue nortriptyline and aripoprazole
DVT proph: SCDs,lovenox
Code Status: Full Code
Anticipated Discharge: Today
Subjective/Interval History
-
Date of Service: May 02, 2024
denies pain
Objective Data
-
Labs:
Laboratory Results
05/02/24
07:54
WBC 6.1
Hgb 14.2
Hct 42.4
Plt Count 255
Sodium 133 L
Potassium 4.4
Chloride 96 L
Carbon Dioxide 28
BUN 16
Creatinine 0.9
Glucose 93
Calcium 8.6
Vital Signs:
Vital Signs
Temp Pulse Resp BP Pulse Ox
98.4 F 80 19 148/88 95
05/02/24 07:27 05/02/24 07:27 05/02/24 07:27 05/02/24 07:27 05/02/24 07:27
I&O
05/01/24 05/02/24 05/03/24
06:59 06:59 06:59
Intake Total 120 / 120 900 / 900
Output Total 1000 / 1000
Balance -880 / -880 900 / 900
[2024-05-02 11:18] VITALS: BP 147/83
[2024-05-02 11:40] VITALS: BP 147/38; BP 148/88; PULSE 77; PULSE 80
--- NOTE | 2024-05-02 11:48 | W.DCSUMMARY ---
Discharge Summary
Discharge Data
Date of Admission: 04/30/24
Date of Discharge: 05/03/24
-
Pending Results: No
Hospital Course
84-year-old female with past medical history of hypothyroidism, hyperlipidemia, depression/fibromyalgia came to the hospital after syncopal episode. Patient was seen by cardiology throughout hospitalization. She got echocardiogram which showed
preserved ejection fraction. Her orthostatic vital signs were positive and her symptoms continue to improve after fluids and teds. She was instructed to continue to wear teds upon ambulation. She was evaluated by physical therapy who recommended
home health. Cardiology recommended Holter monitor which they will arrange with patient outpatient. Once her symptoms continue to improve, she was then discharged home with instructions to follow-up with all her physicians outpatient.
Discharge Plan
-
Patient Disposition: Home with Home Care
Discharge Diagnosis/Procedures: Syncope secondary to orthostatic hypotension
Hypothyroidism
Mild hyponatremia
Diet: As tolerated
Activity: As tolerated
Driving Restrictions: As prior to admission
Bathing Restrictions: None
Blood Work: BMP next week with primary care provider
Activity Restrictions/Additional Instructions:
Please apply KEVAN stockings during ambulation
Follow-up with cardiology regarding Holter monitor
Referrals:
Dewayne Castillo MD [Active] -
UNKNOWN - PT NOT,INTERVIEWE [Family Provider] - in less than 1 week
Prescriptions:
Continued
levothyroxine 50 MCG tablet
50 mcg PO DAILY
aripiprazole 2 MG tablet
1 mg PO DAILY
cyanocobalamin (vitamin B-12) [Vitamin B-12] 1,000 mcg Tablet
1,000 mcg PO DAILY
biotin 5,000 mcg Tablet,Disintegrating
5,000 mcg PO DAILY
polyethylene glycol 3350 [Miralax] 17 gram Powder In Packet
17 g PO Q72H
simvastatin 10 mg Tablet
10 mg PO QPM
nortriptyline 25 mg Capsule
50 mg PO QPM
cholecalciferol (vitamin D3) [Vitamin D3] 50 mcg (2,000 unit) Tablet
50 mcg PO DAILY
Discharge Orders:
Discharge Patient (As Directed); Ordered 05/02/24
Ordered By: Sean Syed
Discharge Date and Time
Discharge Date/Time: 05/02/24 15:02
Print Language: FRISIAN
--- NOTE | 2024-05-02 14:23 | CM ---
clearance center manager reviewed patient's chart and patient has been cleared for discharge. Plan is for patient to return to [facility], patient's daughter to pick patient up at 2:30pm.
[facility]
[phone]

[facility]
Call Ryne with report [phone]
--- NOTE | 2024-05-02 14:27 | W.PN.CARDCBS ---
Today's Communication / Plan
-
D/C to home with follow up arranged
37 min face to face and chart prep
Impression / Plan
-
PCP: Dr. Napier
Cardiology: None prior to admission
PCP: Dr. Napier
Cardiology: None
Impression:
Admitted with an episode of syncope
Orthostatic hypotension, symptomatic and recurrent
Hypercholesterolemia
Hypothyroidism
Depression
Fibromyalgia
Echocardiogram March 2022: EF 55%, normal RV size and function, trace MR, trace aortic regurgitation
Echo 04/30/2024: EF 55 to 60%, mild concentric LVH, trace MR, trace aortic insufficiency, trace TR
Plan:
-Patient with orthostasis. Added thigh high TEDS, but patient does not feel she has the dexterity to apply them herself at home ([facility] independent living).
-Also reviewed with patient performing regular exercise to build up core muscle mass, utilizing dynamic standing, isometric exercises and taking increased time during acute positional changes. Adequate hydration encouraged. We discussed maximizing
conservative efforts and only if these efforts fail would we try adding meds like midodrine.
-Provided printouts from [employer] Date re: syncope the basics and beyond the basics. Reviewed them with patient and highlighted important sections.
-Cardiology office will mail a 7 day monitor to patient or we could apply it at her upcoming appt 05/16/24. Tele reviewed by me 05/02/24 and no arrhythmia
-Echo completed 05/02/24 and noted above, no significant valve disease, EF preserved
-Patient is stable for d/c to home. Patient's daughter called while I was in the room and I offered to speak to her, but the patient declined.
Progress Note - Executive Communications Manager
Subjective
Date of Service: May 02, 2024
Feels a bit rushed and overwhelmed
Objective
Labs:
05/02/24 07:54
05/02/24 07:54
Labs
Hgb 14.2 g/dL (12.0-16.0) 05/02/24 07:54
Hct 42.4 % (37.0-47.0) 05/02/24 07:54
Plt Count 255 10^3/uL (130-400) 05/02/24 07:54
Sodium 133 mmol/L (135-145) L 05/02/24 07:54
Potassium 4.4 mmol/L (3.5-5.1) 05/02/24 07:54
BUN 16 mg/dl (7-17) 05/02/24 07:54
Creatinine 0.9 mg/dL (0.6-1.0) 05/02/24 07:54
Glucose 93 mg/dl (70-99) 05/02/24 07:54
Troponins
04/30/24
12:09
Troponin I < 0.012
Vital Signs and I&O:
Vital Signs
Temp Pulse Resp BP Pulse Ox
98.6 F 77 18 147/83 97
05/02/24 11:18 05/02/24 11:18 05/02/24 11:18 05/02/24 11:18 05/02/24 11:18
Vital Signs
Temp Pulse Resp BP Pulse Ox
98.6 F 77 18 147/83 97
05/02/24 11:18 05/02/24 11:18 05/02/24 11:18 05/02/24 11:18 05/02/24 11:18
Intake & Output
04/30/24 05/01/24 05/02/24 05/03/24
06:59 06:59 06:59 06:59
Intake Total 120 / 120 900 / 900
Output Total 1000 / 1000
Balance -880 / -880 900 / 900
Physical Exam
Physical Exam
GEN: NAD
HEENT: mmm
LUNGS: No audible wheeze
CV: SR on tele
ABD: ND
EXT: No edema
NEURO: Gross non-focal
SKIN: No rash
== END 2024-05-02 15:02 | disposition home health service (06) ==
LOC: 4 WEST ACU 15:17
PROVIDERS: Physician Assistant Medical; ADMITTING PHYSICIAN Hospitalist; ATTENDING PHYSICIAN Internal Medicine; EMERGENCY PHYSICIAN Emergency Medicine; OTHER PHYSICIAN Internal Medicine Cardiovascular Disease
DX: I95.1 Orthostatic hypotension (principal); R41.82 Altered mental status, unspecified; E78.00 Pure hypercholesterolemia, unspecified; E87.1 Hypo-osmolality and hyponatremia; G31.9 Degenerative disease of nervous system, unspecified; R94.31 Abnormal electrocardiogram [ECG] [EKG]; R09.89 Other specified symptoms and signs involving the circulatory and respiratory systems; W01.0XXA Fall on same level from slipping, tripping and stumbling without subsequent striking against object, initial encounter; Y93.01 Activity, walking, marching and hiking; Y92.099 Unspecified place in other non-institutional residence as the place of occurrence of the external cause; S61.412A Laceration without foreign body of left hand, initial encounter; F32.A Depression, unspecified; M79.7 Fibromyalgia; E03.9 Hypothyroidism, unspecified; R07.9 Chest pain, unspecified; Z60.2 Problems related to living alone; Z88.0 Allergy status to penicillin; Z88.1 Allergy status to other antibiotic agents; Z88.2 Allergy status to sulfonamides; Z79.890 Hormone replacement therapy
CPT/HCPCS: 70450; 80048; 80053; 84439; 84443; 84484; 85025; 93005; 93306; 96360; 97162; 97166; 99285; G0378

== ENCOUNTER → 2024-05-25 07:09 | Outpatient (REF) | payer MEDICARE, OTHER, SELFPAY ==
[2024-05-25 08:29] LABS: ALT (SGPT) 17 U/L (0-35); AST (SGOT) 24 U/L (14-36); Albumin 4.4 g/dl (3.5-5.0); Alkaline Phosphatase 64 U/L (38-126); Blood Urea Nitrogen 17 mg/dl (7-17); Calcium 9.1 mg/dl (8.4-10.2); Carbon Dioxide 27 mmol/L (22-30); Chloride 99 mmol/L (98-107); Glucose 99 mg/dl (70-99); HDL Cholesterol 95 mg/dl; LDL Cholesterol, Calculated 132 mg/dl; Potassium 4.3 mmol/L (3.5-5.1); Sodium 136 mmol/L (135-145); Total Bilirubin 0.5 mg/dl (0.2-1.3); Total Cholesterol 237 mg/dl (50-199); Total Protein 6.9 g/dl (6.3-8.2); Triglyceride 53 mg/dl (10-149); Very Low Density Lipoprotein 10 mg/dl (0-30); eGFR > 60.00
[2024-05-25 08:53] LABS: TSH Reflex To Free T4 0.15 uIU/ml (0.47-4.68)
[2024-05-25 09:20] LABS: Free T4 1.11 ng/dl (0.78-2.19)
== END ==
LOC: REG 07:09
PROVIDERS: ATTENDING PHYSICIAN Internal Medicine
DX: E78.00 Pure hypercholesterolemia, unspecified (principal); E87.1 Hypo-osmolality and hyponatremia; E03.9 Hypothyroidism, unspecified
CPT/HCPCS: 36415; 80053; 80061; 84439; 84443

== ENCOUNTER 2024-07-16 06:52 | Inpatient (IN) | payer MEDICARE, OTHER, SELFPAY ==
[2024-07-15] VITALS (9 sets, daily range): BP systolic 147–188; BP diastolic 70–99; BMI 20.7; BMI 18.6
--- NOTE | 2024-07-15 10:00 | ED.GENMED ---
History of Present Illness
General
Chief Complaint: Failure to Thrive
Time Seen by Provider: 07/15/24 09:52
History of Present Illness
History of Present Illness:
Patient is a 84-year-old woman with history of hypothyroidism, hyperlipidemia, depression presenting to the emergency department failure to thrive. Patient states for the past few weeks she has been having with her activities of daily living and
has poor appetite. She states that today she was walking when she felt weak so she came in for further evaluation. She does live at home by herself. She does not feel as if it is safe given the difficulty that she has been having. She denies any
nausea or vomiting. No abdominal pain. No diarrhea. No chest pain or difficulty breathing. No sick contacts. No recent falls.
Past History
Past History
ED Past Medical History: Hypercholesterolemia, Hypothyroidism, Psychiatric (Depression) and Other (Fibromyalgia)
ED Past Surgical History: None
Social History
Tobacco: Non-smoker
Alcohol: None
Drug: None
Personal:
Living: alone
Employment: Retired
Phy Exam
Physical Exam
Physical Exam:
GENERAL: in no acute distress
HEENT: normocephalic, extraocular movements intact, dry oral mucosa
NECK: normal inspection
RESPIRATORY: no respiratory distress, clear to auscultation bilaterally
CARDIOVASCULAR: regular rate and rhythm
ABDOMEN/: soft, non-distended, non-tender to palpation, no rebound or guarding
EXTREMITIES: non-tender, no edema/swelling
NEUROLOGIC: awake and alert, moves all extremities, equal strength in upper and lower extremities
SKIN: warm
Course
Orders/Labs/Results
Orders:
Orders
07/15/24 09:58
Case Management Consult ONCE
Case Management Consult: Discharge Planning
0.9% Sodium Chloride 1000 ml [Nss] 1,000 ml IV BOLUS
07/15/24 09:59
Electrocardiogram (*1) Urgent
Reason for Study: Fatigue / Weakness
EKG- Treatment ONCE
07/15/24 10:31
Complete Blood Count/With Diff Urgent
Comprehensive Metabolic Panel Urgent
Free T4 Urgent
Thyroid Stimulating Hormone to Reflex [TSH Reflex To Free T4] Urgent
07/15/24 10:40
Pt Eval And Treat Urgent
Activity Level: Ambulate
07/15/24 11:26
Urinalysis Reflex To Culture Urgent
Date Specimen was Collected: 07/15/24
Time Specimen was Collected: 11:23
Abnormal Lab Results
07/15/24
10:31
Absolute Lymphs (auto) 0.8 L 10^3/uL
(1.2-3.4)
Neutrophils % 77.8 H %
(42.2-75.2)
Lymphocytes % 10.2 L %
(20.5-51.1)
Sodium 129 L mmol/L
(135-145)
Chloride 91 L mmol/L
(98-107)
TSH (Reflex) 0.11 L uIU/ml
(0.47-4.68)
07/15/24 10:31
07/15/24 10:31
Vital Signs
Initial and Last Documented VS:
Initial Vital Signs
Temp Pulse Resp BP Pulse Ox
97.4 F 82 16 162/85 98
07/15/24 09:57 07/15/24 09:57 07/15/24 09:57 07/15/24 09:57 07/15/24 09:57
Last Documented Vital Signs
Temp Pulse Resp BP Pulse Ox
97.4 F 82 16 162/85 98
07/15/24 09:57 07/15/24 09:57 07/15/24 09:57 07/15/24 09:57 07/15/24 09:57
MDM/Problems Addressed
Differential Diagnosis Includes:
Patient is a 84-year-old woman presenting to the emergency department generalized weakness and decreased appetite. Vitals are unremarkable and exam does show dry oral mucosa. Differential is broad but consists of UTI versus metabolic derangement
versus thyroid abnormality. Will check blood work EKG urine sample. Will give IV fluids and discussed with case management. Patient will likely need additional support either at home or nursing facility placement
*Critical Care Note
Total Time (30-74mins, 75-104mins- exclusive of procedures): Not Applicable
Update Note
Update Note:
EKG per my interpretation with normal sinus rhythm with sinus arrhythmia blood work does show sodium of 129. Her TSH is low. Free T4 pending. I did discuss with case management who recommended physical therapy evaluation. PT arlet recommended
SNF. Unfortunately case management cannot place patient today. She will need admission. Discussed with hospitalist who accepted patient to their service pending urine and free T4.
ED Attending Note
-
Portions of this chart may have been created with voice recognition software.� Occasional wrong word or��sound alike� substitutions may have occurred due to the inherent limitations of voice recognition software.
Discharge Plan
Departure
Patient Disposition: Admit
Date of Disposition: 07/15/24
Time of Disposition: 11:54
Presentation/result/management discussed w/ accepting MD/DO: Hospitalist
Discharge Problem:
Weakness
Prescriptions:
No Action
levothyroxine 50 MCG tablet
50 mcg PO DAILY
aripiprazole 2 MG tablet
1 mg PO DAILY
cyanocobalamin (vitamin B-12) [Vitamin B-12] 1,000 mcg Tablet
1,000 mcg PO DAILY
biotin 5,000 mcg Tablet,Disintegrating
5,000 mcg PO DAILY
polyethylene glycol 3350 [Miralax] 17 gram Powder In Packet
17 g PO Q72H
simvastatin 10 mg Tablet
10 mg PO QPM
nortriptyline 25 mg Capsule
50 mg PO QPM
cholecalciferol (vitamin D3) [Vitamin D3] 50 mcg (2,000 unit) Tablet
50 mcg PO DAILY
Referrals:
UNKNOWN,NO INTERVIEW [Family Provider] -
Interventions
Interventions:
*Risk Screen - Suicide Last Done: 07/15/24 09:45
*General Assessment Last Done: 07/15/24 09:50
*Neglect/Abuse Screening Last Done: 07/15/24 09:45
Discharge Date and Time
Print Language: URDU
[2024-07-15] MEDS: NSS 1000 IV ×2 (10:32→18:08)
[2024-07-15 10:50] LABS: % Basophils 0.5 % (0-2); % Eosinophils 3.4 % (0-6); % Immature Granulocytes 0.3 % (0-0.5); % Lymphocytes 10.2 % (20.5-51.1); % Monocytes 7.8 % (1.7-9.3); % Neutrophils 77.8 % (42.2-75.2); Absolute Eosinophils 0.3 10^3/uL (0-0.7); Absolute Lymphocytes 0.8 10^3/uL (1.2-3.4); Absolute Monocytes 0.6 10^3/uL (0.1-0.6); Absolute Neutrophils 5.8 10^3/uL (1.4-6.5); Hematocrit 43.7 % (37.0-47.0); Hemoglobin 15.3 g/dL (12.0-16.0); Mean Corpuscular Hgb 30.2 pg (27.0-31.0); Mean Corpuscular Volume 86.2 fL (81.0-99.0); Mean Platelet Volume 8.6 fL (7.4-10.4); Nucleated Red Blood Cells % 0 %; Platelet Count 306 10^3/uL (130-400); Red Blood Cell Count 5.07 10^6/uL (4.20-5.40); Red Cell Dist. Width 13.1 % (11.5-14.5); White Blood Cell Count 7.4 10^3/uL (4.8-10.8)
--- NOTE | 2024-07-15 10:52 | CM ---
Addendum entered by Valentine Davis RN 07/15/24 14:42:
CM met with patient in room to update on placement. Patient became tearful and stated that she regretted coming into the hospital. Patient endorses that she has not been taking her medication regularly and at times gets confused if she had taken
them. Patient continued to be tearful stating that she 'just doesn't understand what's wrong'.
Patient stated that the 'social services' at [facility] visited her at her request for assistance. Patient stated that she does not like the social services at [facility] and she cannot understand what she says. SHe finds this very frustrating and
feels that she cannot reach out for assistance.
CM updated ED physician with patient's tearfulness and possible medication mismanagement.
Original Note:
CM reviewed medical records. Patient lives at [facility]. Patient has been know to [facility] in the past. Patient is eligible for MSSP program as per [facility]. CM requested PT evaluation for further discharge planning efforts.
[2024-07-15 11:01] LABS: ALT (SGPT) 17 U/L (0-35); AST (SGOT) 26 U/L (14-36); Albumin 4.5 g/dl (3.5-5.0); Alkaline Phosphatase 75 U/L (38-126); Blood Urea Nitrogen 17 mg/dl (7-17); Carbon Dioxide 30 mmol/L (22-30); Chloride 91 mmol/L (98-107); Estimated Creatinine Clearance 38 ml/min; Glucose 95 mg/dl (70-99); Potassium 4.3 mmol/L (3.5-5.1); Sodium 129 mmol/L (135-145); Total Bilirubin 0.8 mg/dl (0.2-1.3); Total Protein 7.2 g/dl (6.3-8.2); eGFR 55.21
[2024-07-15 11:30] LABS: TSH Reflex To Free T4 0.11 uIU/ml (0.47-4.68)
[2024-07-15 12:00] LABS: Free T4 1.48 ng/dl (0.78-2.19)
--- NOTE | 2024-07-15 12:22 | HPS.HSE ---
Addendum entered and electronically signed by Yecenia Box DO 07/15/24 14:23:
The patient was seen and examined by myself. I have reviewed the patient with SALESMAN/OWNER, Yane, and agree with her history and physical, assessment and plan of care as per below.
No active complaints-she feels like her mouth is dry and she is thirsty. Na is 129 in ED.
[facility], [facility]
ED txt: IVF bolus 1 liter
The patient has been experiencing decreased appetite, and is feeling lightheaded/dizziness when she ambulates, no CP, no SOB, no palpitations. She feels depressed and was supposed to set up OP Psych apt, but has been playing phone tag.
She was admitted here previously for orthostatic hypotension, seen by Cardiology in 04/2024
Echocardiogram March 2022: EF 55%, normal RV size and function, trace MR, trace aortic regurgitation
Echo 04/30/2024: EF 55 to 60%, mild concentric LVH, trace MR, trace aortic insufficiency, trace TR
At that time they added TEDS, but pt not applying due to dexterity.
VSS/AF
Cards RRR, no m/r/g
Lungs CTA b/l no w/r/r
Neuro no focal neuro deficits
EKG sinus rhythm w arrhythmia, unchanged from 04/30/24
# Orthostatic hypotension, agree with plan of care as per below
# Hyponatremia, agree with plan of care as per below
-if all work-up is unremarkable, consider Nortriptyline as well as possible etiology, though more likely due to hypovolemia
-regular diet, check labs-B-12, am cortisol, urine studies, repeat Na tonight
-orthostatics, gentle IVF 80 mL per hour for 1 liters, repeat BMP in am
#Depression
-psych consultation
PT eval, CM consult - placement
DNR
Original Note:
Family Physician
-
Family Physician: NO INTERVIEW UNKNOWN
Chief Complaint
-
Lightheadedness with walking, decreased interest in activities, depressed, weight loss
History of Present Illness
84-year-old female from [facility] where she states this morning she felt lightheaded after completing her shower routine so she called down to the commercial front load operator. Is very difficult to ascertain information from the patient as she
talks off in a tangent. It sounds as if she has been having lack of appetite over the past 6 weeks accompanied by feeling lightheaded with walking and getting very tired with basic tasks showering and dressing. She also reports that she is
depressed and lives by herself with no other contact she gets up to try to walk down to the dining zabala to engage with other people but
Past medical history hypothyroidism, hyperlipidemia, depression, fibromyalgia, syncope secondary to orthostatic hypotension
Medical History
Past Medical History
Past Medical History: Reports Other
Additional Past Medical History:
Hyperlipidemia
Hypothyroidism
Depression
Fibromyalgia
Past Surgical History: Reports None
Social History
Tobacco: Non-smoker
Alcohol: None
Personal: Single
Living: Alone (Independent Living Apartment at [facility])
Family History
Family History: Not pertinent
Allergies / Home Medications
Allergies reflects when Allergies were last updated in [facility].
Home Medications with original date entered in [facility]
Allergy/Medication List:
Allergies
Allergy/AdvReac Type Severity Reaction Status Date / Time
amoxicillin [From Augmentin] Allergy Hives Verified 07/15/24 09:50
bacitracin Allergy Rash Verified 07/15/24 09:50
[From Neosporin
([id number])]
clavulanic acid Allergy Hives Verified 07/15/24 09:50
[From Augmentin]
neomycin Allergy Rash Verified 07/15/24 09:50
[From Neosporin
([id number])]
polymyxin B Allergy Rash Verified 07/15/24 09:50
[From Neosporin
([id number])]
sulfamethoxazole Allergy Rash Verified 07/15/24 09:50
[From Bactrim]
Tetracyclines Allergy Rash Verified 07/15/24 09:50
trimethoprim [From Bactrim] Allergy Rash Verified 07/15/24 09:50
Home Medications
aripiprazole 2 mg tablet 1 mg PO DAILY Mental Health/Anxiety 09/14/21
biotin 5,000 mcg disintegrating tablet 5,000 mcg PO DAILY Supplement 04/07/22
cyanocobalamin (vitamin B-12) 1,000 mcg tablet (Vitamin B-12) 1,000 mcg PO DAILY Supplement 04/07/22
cholecalciferol (vitamin D3) 50 mcg (2,000 unit) tablet (Vitamin D3) 50 mcg PO DAILY Supplement 04/30/24
nortriptyline 25 mg capsule 50 mg PO QPM depression/anxiety 04/30/24
polyethylene glycol 3350 17 gram oral powder packet (Miralax) 17 g PO Q72H Constipation 04/30/24
simvastatin 10 mg tablet 10 mg PO QPM High Cholesterol 04/30/24
Review of Systems
-
History Source: Patient
A 12 point ROS was completed and negative except as noted: Yes
Constitutional: Reports Weight Loss (12 lbs past 60 days ); Denies Fever or Chills
EENT: Denies Sore Throat or Runny Nose
Respiratory: Denies Cough or Trouble Breathing
Cardiac: Reports Other (dizziness ); Denies Chest Pain, Palpitations or Syncope
Abdomen/GI: Denies Abdominal Pain, Nausea, Vomiting, Diarrhea, Constipated, Bloody Stools or Black Stools
: Denies Dysuria, Frequency, Flank Pain, Incontinence or Difficulty Voiding
Musculoskeletal: Denies Joint Pain or Edema
Skin: Denies Itching or Rash
Neurological: Reports Dizzy and Weakness (Generalized); Denies Headache
Endocrine: Reports No Symptoms
Hematologic/Lymphatic: Reports No Symptoms
Psych: Reports Calm
Physical Exam
Vital Signs
Vital Signs
Temp Pulse Resp BP Pulse Ox
97.4 F 82 16 162/85 98
07/15/24 09:57 07/15/24 09:57 07/15/24 09:57 07/15/24 09:57 07/15/24 09:57
Physical Exam
General: No Fever or Chills
HEENT: NormoCephalic, Anicteric, PERRLA, [place] Conjunctivae and No Ptosis
Respiratory: Clear; No Wheezes, Rales or Rhonchi
Cardiac: S1/S2 and Regular Rhythm; No Murmur, Rub, Gallop or Peripheral Edema
GI: Soft, Non Tender, Non Distended, Normal Bowel Sounds and No Hepatosplenomegaly
Rectal: Deferred by Provider
Genito-urinary: Deferred by me
Musculoskeletal: No Clubbing, No Cyanosis and No Edema
Skin: Warm and Dry; No Rash or Jaundice
Neuro: AO x 3, No Motor Deficits and No Sensory Deficits; No Slurred Speech, Facial Droop, Tremors or Sedated
Psych: Calm and Depressed (Denies suicidal ideation)
Laboratory Results
-
07/15/24 10:31
07/15/24 10:31
Laboratory Results
Total Bilirubin 0.8 mg/dl (0.2-1.3) 07/15/24 10:31
AST 26 U/L (14-36) 07/15/24 10:31
ALT 17 U/L (0-35) 07/15/24 10:31
Alkaline Phosphatase 75 U/L (38-126) 07/15/24 10:31
Impression/Plan
-
Impression/plan:
Observation MedSurg
# Symptomatic orthostatic hypotension/syncope history 04/30/2024
BP 162/85
Orthostatic vitals:
Standing 153/81, HR 100
Lying 160/94 heart rate 86
-Continue to encourage KEVAN stockings
-Follow orthostatic vitals
-Patient given 1 L IV NSS will hold on additional fluids given hyponatremia
#Generalized weakness secondary to decreased oral intake/weight loss 2 months
WT LOSS 5.6 kg/12.32 LBS from 05/02/2024 - 07/15/2024 73 days
-PT/OT/case management consult for SNF placement
-Dietary consult
-Check orthostatic vitals
EKG: Sinus rhythm with sinus arrhythmia 80 bpm, QTc 449 MS no change from April 2024
#Acute on Chronic Depression with weight loss
-Patient reports feeling depressed lack of activity lack of interest in getting up and doing things getting dressed, patient lives alone independent at [facility]
-Consult Psychiatry
-Continue Abilify 1 mg p.o. daily, nortriptyline 50 mg every afternoon
#Acute hyponatremia
NA 129
-TSH low with normal free T4
-Will check urine Osmo, urine sodium, serum osmo, random cortisol
-Will check BMP at 1700
#Hypothyroidism
-Levothyroxine 50 mcg po daily
TSH 0.11, free T4 1.48(NML)
#Fibromyalgia
Continue vitamin B-12 1000 mcg p.o. daily
#Constipation
-Continue MiraLAX 17 g daily
#HLD
-Continue simvastatin 10 mg every afternoon
DVT prophylaxis
Subcu heparin
DNR per pt
[2024-07-15 13:42] LABS: Urine Albumin Negative (Neg - Trace); Urine Bilirubin Negative (Negative); Urine Character Clear (Clear); Urine Color Yellow; Urine Glucose Negative (Negative); Urine Ketone 1+ (Negative); Urine Leukocyte 2+ (Negative); Urine Nitrite Negative (Negative); Urine Occult Blood Negative (Negative); Urine Urobilinogen Negative (Neg - 1+)
[2024-07-15 14:13] LABS: Osmolality Serum 272 mOsm/kg (275-300)
[2024-07-15 14:33] LABS: Osmolality Urine 150 mOsm/kg (300-900)
[2024-07-15 14:39] LABS: Urine Sodium 28 mmol/L (30-90)
[2024-07-15 15:07] LABS: Urine Amorphous Seen
[2024-07-15 15:12] LABS: Urine Red Blood Cell 0-2 /HPF (0-2)
[2024-07-15 15:27] LABS: Cortisol, Random 24.5 ug/dl
--- NOTE | 2024-07-15 16:00 | CS.PSYCHR ---
Consult Summary - Psychiatry
-
Pt is an 84 yo female from [facility], who presented to ED c/o feeling lightheaded after showering this morning. Pt reportedly has had poor appetite over the past 6 weeks with weight loss. Psychiatry asked to assess for
depression. Pt c/o no appetite, no desire to eat. She goes down to the dining room for meals, but is not able to eat much, states she feels full. Pt also c/o decreased concentration, decreased interest in reading, feeling hopeless at times. She
denies any suicidal ideation. Pt has been prescribed antidepressants for 'a while'- Nortriptyline 50 mg Q pm, and Abilify 2 mg daily- states is has been helpful since added. Pt c/o feeling nervous when driving, relies on help from her dtr and son.
Dtr is retired and in [place] for a few months; son is local but still working, not as available per pt. Pt is alert, calm, cooperative with no signs of psychosis.
PMH: hypothyroidism, hyperlipidemia, fibromyalgia, syncope secondary to orthostatic hypotension
Psych Hx: depression in recent years, since her about 4 years ago. No hx of inpatient tx; denies seeing a psychiatrist. Had phone sessions with a therapist in the past. PCP prescribes antidepressant medications
MSE: alert, oriented, calm, cooperative. Speech/thought coherent, goal-directed. Mood dysphoric, mildly anxious, affect congruent. No signs of psychosis. Insight appears fair
Imp: Unspecified depressive d/o, R/o MDD; denies any SI, does not appear to need inpatient psych tx
Rec: Check Nortriptyline level; would continue current antidepressants
consider additional augmentation agent; outpatient therapy or IOP when medically stabilized
will follow
[2024-07-15] MEDS: PAMELOR 50 MG PO (18:04)
[2024-07-15] MEDS: LIPITOR 10 MG PO (18:06)
[2024-07-15 19:13] LABS: Blood Urea Nitrogen 13 mg/dl (7-17); Calcium 8.9 mg/dl (8.4-10.2); Carbon Dioxide 26 mmol/L (22-30); Chloride 94 mmol/L (98-107); Estimated Creatinine Clearance 55 ml/min; Glucose 135 mg/dl (70-99); Sodium 127 mmol/L (135-145); eGFR > 60.00
[2024-07-15] MEDS: HEPARIN 5000 UNITS SC (20:49)
--- NOTE | 2024-07-15 22:42 | PTCARENOTE ---
Patient arrived to unit via stretcher around 19:30. AAOX2-3 and with forgetfulness. Bed alarm applied. IVF infusing. Denies pain or discomfort. Denies SOB. Call [place] within reach. Oriented to unit.
--- NOTE | 2024-07-16 02:11 | PTCARENOTE ---
BOX WORKER made aware of high blood pressures. Patient asymptomatic and denies discomfort. No new orders at this time but to monitor.
[2024-07-16 06:00] VITALS: BMI 18.4
[2024-07-16 07:23] LABS: % Basophils 0.8 % (0-2); % Eosinophils 3.6 % (0-6); % Immature Granulocytes 0.3 % (0-0.5); % Lymphocytes 21.1 % (20.5-51.1); % Monocytes 9.5 % (1.7-9.3); % Neutrophils 64.7 % (42.2-75.2); Absolute Basophils 0.1 10^3/uL (0-0.2); Absolute Eosinophils 0.3 10^3/uL (0-0.7); Absolute Lymphocytes 1.5 10^3/uL (1.2-3.4); Absolute Monocytes 0.7 10^3/uL (0.1-0.6); Absolute Neutrophils 4.7 10^3/uL (1.4-6.5); Hematocrit 44.4 % (37.0-47.0); Hemoglobin 15.1 g/dL (12.0-16.0); Mean Corpuscular Hgb 29.7 pg (27.0-31.0); Mean Corpuscular Volume 87.4 fL (81.0-99.0); Mean Platelet Volume 8.6 fL (7.4-10.4); Nucleated Red Blood Cells % 0 %; Platelet Count 308 10^3/uL (130-400); Red Blood Cell Count 5.08 10^6/uL (4.20-5.40); Red Cell Dist. Width 13.1 % (11.5-14.5); White Blood Cell Count 7.3 10^3/uL (4.8-10.8)
[2024-07-16 08:07] LABS: ALT (SGPT) 16 U/L (0-35); AST (SGOT) 23 U/L (14-36); Albumin 4.2 g/dl (3.5-5.0); Alkaline Phosphatase 77 U/L (38-126); Blood Urea Nitrogen 9 mg/dl (7-17); Calcium 8.7 mg/dl (8.4-10.2); Carbon Dioxide 24 mmol/L (22-30); Chloride 98 mmol/L (98-107); Estimated Creatinine Clearance 58 ml/min; Glucose 94 mg/dl (70-99); Potassium 4.2 mmol/L (3.5-5.1); Sodium 131 mmol/L (135-145); Total Bilirubin 0.8 mg/dl (0.2-1.3); Total Protein 6.8 g/dl (6.3-8.2); eGFR > 60.00
[2024-07-16] MEDS: ABILIFY 1 MG PO (08:20)
[2024-07-16] MEDS: HEPARIN 5000 UNITS SC ×2 (08:20→22:01)
[2024-07-16] MEDS: VITAMIN D3 (cholecalciferol) 50 MCG PO (08:21)
[2024-07-16] MEDS: VITAMIN B-12 1000 MCG PO (08:21)
[2024-07-16 08:46] LABS: Vitamin B12 > 1000 pg/ml (239-931)
[2024-07-16 11:08] VITALS: BMI 18.4
--- NOTE | 2024-07-16 12:11 | W.PN.HOSP.TC ---
Today's Communication/Plan
-
Give IVF NS
Give one dose of oral ABx for UTI
Recheck BMP in AM
Assessment / Plan
Assessment / Plan
Physical Exam
General: No Fever or Chills
HEENT: Normocephalic, Anicteric, PERRLA, [place] Conjunctivae and No Ptosis
Respiratory: Clear; No Wheezes, Rales or Rhonchi
Cardiac: S1/S2
GI: Soft, Non Tender, Non Distended, Normal Bowel Sounds
Rectal: No bleeding
Genito-urinary: No hematuria
Musculoskeletal: No Clubbing, No Cyanosis and No Edema
Skin: Warm and Dry; No Rash or Jaundice
Neuro: Awake, oriented to surroundings, forgetful . She followed commands.
Psych: Calm and Depressed (Denies suicidal ideation)
#Generalized weakness secondary to decreased oral intake/weight loss 2 months
Probably related to ongoing memory impairment
-PT/OT/case management consult for SNF placement
-Dietary consult
-Check orthostatic vitals
# UTI with enterococcus. Uncomplicated
No leukocytosis, no fevers, no dysuria
Will do one dose of Fosfomycin.
Patient is allergic to penicillin. She is on nortriptyline, will avoid quinolones antibiotics due to QT interval prolongation concern.
#Acute on Chronic Depression with weight loss
-Patient reports feeling depressed lack of activity lack of interest in getting up and doing things getting dressed, patient lives alone independent at [facility]
-Consulted Psychiatry, recommendation: Check Nortriptyline level; would continue current antidepressants including nortriptyline and Abilify.
-Continue Abilify 1 mg p.o. daily, nortriptyline 50 mg every afternoon
#Acute on chronic hyponatremia
NA 129 sodium improved today
-TSH low with normal free T4
- low urine Osmo, low urine sodium, low serum osmo, normal random cortisol. Will infuse 0.9% of normal saline and measured the change in sodium level determine whether it is SIADH/reset osmostat or hypovolemia
Consulted nephrology, input appreciated
# Severe protein caloric malnutrition. Consulted dietitian
#Hypothyroidism
-Levothyroxine 50 mcg po daily
TSH 0.11, free T4 1.48(NML)
#Fibromyalgia
Continue vitamin B-12 1000 mcg p.o. daily
#Constipation
-Continue MiraLAX 17 g daily
#HLD
-Continue simvastatin 10 mg every afternoon
DVT prophylaxis
Subcu heparin
DNR per pt
Total time spent to see the patient, examine the patient, review data and lab results, discuss treatment plan with patient and nursing staff around 55 minutes
Anticipated Discharge: > 48 hours
Subjective/Interval History
-
Date of Service: July 16, 2024
No chest pain
No abdominal pain
Objective Data
-
Labs:
Laboratory Results
07/16/24
07:08
WBC 7.3
Hgb 15.1
Hct 44.4
Plt Count 308
Sodium 131 L
Potassium 4.2
Chloride 98
Carbon Dioxide 24
BUN 9
Creatinine 0.6
Glucose 94
Calcium 8.7
Total Bilirubin 0.8
AST 23
ALT 16
Alkaline Phosphatase 77
Vital Signs:
Vital Signs
Temp Pulse Resp BP Pulse Ox
97.8 F 83 16 178/82 98
07/15/24 23:55 07/15/24 23:55 07/15/24 23:55 07/15/24 23:55 07/16/24 08:20
I&O
07/15/24 07/16/24 07/17/24
06:59 06:59 06:59
Intake Total 240 / 240 120 / 120
Balance 240 / 240 120 / 120
--- NOTE | 2024-07-16 13:12 | CM ---
Addendum entered by Blanche Muir 07/16/24 14:02:
traffic manager met with patient to discuss skilled placement, patient is not sure she wants to commit to skilled placement. She is also thinking of home with [facility] visiting nurses.
Original Note:
Patient has switched to inpatient, IMM given, recommendation is for skilled placement, will discuss with patient.
Plan; Skilled placement.
[2024-07-16] MEDS: MONUROL 3 GM PO (13:33)
[2024-07-16] MEDS: NSS 1000 IV (13:35)
[2024-07-16 15:00] VITALS: BP 182/108
--- NOTE | 2024-07-16 15:39 | W.CON.NEPH ---
Consultation
-
Date/Time Consultation Requested: 07/16/24 7:00 AM
Date/Time Consultation Performed: 07/16/2024 340
Requesting Provider: Dr. Villa
Performing Provider: Dr. Gallegos
Reason for Consultation: Hyponatremia
Medical History
-
Chief Complaint: Hyponatremia
History of Present Illness:
The patient is an 84-year-old female who presented to the hospital yesterday feeling lightheaded and weak. She has had associated lack of appetite over the past 6 weeks accompanied by lightheadedness and getting very fatigued with simple basic
tasks such as showering and dressing. She has a history of dyslipidemia and is maintained on statin therapy. She also has a known history of syncope thought to be due to orthostatic hypotension. She is maintained on Abilify and nortriptyline for
depression and anxiety. On presentation to the hospital her sodium was 129. She was given IV fluids and her serum sodium levels up to 131 and nephrology was consulted for hyponatremia. Previous serum sodium level of 136 was noted on June 04,
2023 and 133 as of May 02, 2024. I do note a previous serum sodium level of 118 from 05/27/2022.
Past Medical History
Anxiety depression
Dyslipidemia
Orthostatic hypotension
Previous hyponatremia in 2021
Fibromyalgia
Social History
Tobacco: Non-Smoker
Alcohol: None
Drug: None
Personal: Single
Living: Alone
Family History
no ckd
Allergies / Home Medications
Allergy/AdvReac Type Severity Reaction Status Date / Time
amoxicillin [From Augmentin] Allergy Hives Verified 07/15/24 09:50
bacitracin Allergy Rash Verified 07/15/24 09:50
[From Neosporin
([id number])]
clavulanic acid Allergy Hives Verified 07/15/24 09:50
[From Augmentin]
neomycin Allergy Rash Verified 07/15/24 09:50
[From Neosporin
([id number])]
polymyxin B Allergy Rash Verified 07/15/24 09:50
[From Neosporin
([id number])]
sulfamethoxazole Allergy Rash Verified 07/15/24 09:50
[From Bactrim]
Tetracyclines Allergy Rash Verified 07/15/24 09:50
trimethoprim [From Bactrim] Allergy Rash Verified 07/15/24 09:50
�Medication �Instructions �Recorded �Confirmed �Type
aripiprazole 2 mg tablet 1 mg PO DAILY Mental Health/Anxiety 09/14/21 07/15/24 History
biotin 5,000 mcg disintegrating 5,000 mcg PO DAILY Supplement 04/07/22 07/15/24 History
tablet
cyanocobalamin (vitamin B-12) 1,000 mcg PO DAILY Supplement 04/07/22 07/15/24 History
1,000 mcg tablet (Vitamin B-12)
cholecalciferol (vitamin D3) 50 50 mcg PO DAILY Supplement 04/30/24 07/15/24 History
mcg (2,000 unit) tablet (Vitamin
D3)
nortriptyline 25 mg capsule 50 mg PO QPM depression/anxiety 04/30/24 07/15/24 History
polyethylene glycol 3350 17 gram 17 g PO DAILYPRN PRN constipation 04/30/24 07/15/24 History
oral powder packet (Miralax)
simvastatin 10 mg tablet 10 mg PO QPM High Cholesterol 04/30/24 07/15/24 History
Review of Systems
-
History Source: Patient
All other systems: Negative unless noted
Constitutional: Fatigue and Other (weakness with simple tasks)
EENT: Other (Lightheadedness dizzy)
Physical Exam
Vital Signs
Vital Signs
Temp Pulse Resp BP Pulse Ox
97.8 F 83 16 178/82 98
07/15/24 23:55 07/15/24 23:55 07/15/24 23:55 07/15/24 23:55 07/16/24 08:20
Lab Results
07/16/24 07:08
07/16/24 07:08
WBC 7.3 10^3/uL (4.8-10.8) 07/16/24 07:08
RBC 5.08 10^6/uL (4.20-5.40) 07/16/24 07:08
Hgb 15.1 g/dL (12.0-16.0) 07/16/24 07:08
Hct 44.4 % (37.0-47.0) 07/16/24 07:08
Plt Count 308 10^3/uL (130-400) 07/16/24 07:08
Sodium 131 mmol/L (135-145) L 07/16/24 07:08
Potassium 4.2 mmol/L (3.5-5.1) 07/16/24 07:08
Chloride 98 mmol/L (98-107) 07/16/24 07:08
Carbon Dioxide 24 mmol/L (22-30) 07/16/24 07:08
BUN 9 mg/dl (7-17) 07/16/24 07:08
Creatinine 0.6 mg/dL (0.6-1.0) 07/16/24 07:08
eGFR > 60.00 07/16/24 07:08
Glucose 94 mg/dl (70-99) 07/16/24 07:08
Calcium 8.7 mg/dl (8.4-10.2) 07/16/24 07:08
Albumin 4.2 g/dl (3.5-5.0) 07/16/24 07:08
Physical Exam
General: No Fever or Chills
HEENT: NormoCephalic, Anicteric, PERRLA, [place] Conjunctivae and No Ptosis
Respiratory: Clear; No Wheezes, Rales or Rhonchi
Cardiac: S1/S2 and Regular Rhythm; No Murmur, Rub, Gallop or Peripheral Edema
GI: Soft, Non Tender, Non Distended, Normal Bowel Sounds and No Hepatosplenomegaly
Rectal: Deferred by Provider
Genito-urinary: Deferred by me
Musculoskeletal: No Clubbing, No Cyanosis and No Edema
Skin: Warm and Dry; No Rash or Jaundice
Neuro: AO x 3, No Motor Deficits and No Sensory Deficits; No Slurred Speech, Facial Droop, Tremors or Sedated
Psych: Calm and Depressed (Denies suicidal ideation)
Vascular: +1 radial pulse +1 pedal pulse
Data Reviewed
-
Medical Tests (Nuc Med, Echo etc): Other (EKG reviewed sinus rhythm with sinus arrhythmia with left axis deviation at 80 bpm per report)
Labs: Labs Reviewed by me (BMP CBC urine osmolality urine sodium)
Old Records: Reviewed (Reviewed previous lab work with serum sodium level 05/27/2022 and 133 and 05/02/24)
Assessment/Plan
-
Impression:
Euvolemic hyponatremia (129)
Chronic hyponatremia
Dyslipidemia
Anxiety and depression
Presentation with weakness and fatigue
Enterococcus UTI
History of orthostatic hypotension
Plan:
Euvolemic hyponatremia
-I do not think a serum sodium level of 129 in a patient that has been chronically hyponatremic is the etiology of her weakness
-Urine osmolality of 150 is not consistent with significant SIADH
-Urine sodium of 28: unsure of significance
-Abilify (second generation antipsychotics )has rarely been associated with hyponatremia but there are case reports
-Maintain fluid restriction at 48 oz
-Thyroid rate checked tests are within normal limits, levothyroxine discontinued a couple weeks prior
-check CXR
-Will check orthostatics re: dizziness his blood pressure is quite high and I note is not treated, she likely requires anti htn therapy: i.e. amlodipine
[2024-07-16] MEDS: LIPITOR 10 MG PO (17:59)
[2024-07-16] MEDS: PAMELOR 50 MG PO (17:59)
[2024-07-16 23:05] VITALS: BP 164/104; BP 177/108; BP 185/102; BP 185/103; PULSE 101; PULSE 81; PULSE 86
[2024-07-17] MEDS: NSS 1000 IV ×2 (00:51→08:00)
[2024-07-17 01:16] VITALS: BP 181/96
[2024-07-17 06:00] VITALS: BMI 19.3
--- NOTE | 2024-07-17 06:38 | PTCARENOTE ---
BIOMETRIC TECHNICIAN notified of patient increased BPs. Patient asymptomatic. Order placed for fluids to be decreased from 150 ml/hr to 75 mls/hr.
[2024-07-17 07:00] VITALS: BP 135/95; BP 178/105; BP 186/100; PULSE 89; PULSE 91; PULSE 98
[2024-07-17] MEDS: HEPARIN 5000 UNITS SC ×2 (08:00→20:59)
[2024-07-17] MEDS: NORVASC 10 MG PO (08:00)
[2024-07-17] MEDS: VITAMIN D3 (cholecalciferol) 50 MCG PO (08:01)
[2024-07-17] MEDS: VITAMIN B-12 1000 MCG PO (08:01)
[2024-07-17] MEDS: ABILIFY 1 MG PO (08:01)
[2024-07-17] MEDS: MIRALAX 17 GRAMS PO (08:10)
[2024-07-17 08:15] LABS: % Basophils 0.9 % (0-2); % Eosinophils 2.5 % (0-6); % Immature Granulocytes 0.2 % (0-0.5); % Monocytes 11.6 % (1.7-9.3); % Neutrophils 59.8 % (42.2-75.2); Absolute Basophils 0.1 10^3/uL (0-0.2); Absolute Eosinophils 0.1 10^3/uL (0-0.7); Absolute Lymphocytes 1.4 10^3/uL (1.2-3.4); Absolute Monocytes 0.6 10^3/uL (0.1-0.6); Absolute Neutrophils 3.3 10^3/uL (1.4-6.5); Hematocrit 42.3 % (37.0-47.0); Hemoglobin 14.8 g/dL (12.0-16.0); Mean Corpuscular Hgb 30.3 pg (27.0-31.0); Mean Corpuscular Volume 86.7 fL (81.0-99.0); Mean Platelet Volume 8.8 fL (7.4-10.4); Nucleated Red Blood Cells % 0 %; Platelet Count 299 10^3/uL (130-400); Red Blood Cell Count 4.88 10^6/uL (4.20-5.40); Red Cell Dist. Width 13.2 % (11.5-14.5); White Blood Cell Count 5.5 10^3/uL (4.8-10.8)
[2024-07-17 08:51] LABS: ALT (SGPT) 14 U/L (0-35); AST (SGOT) 22 U/L (14-36); Albumin 3.9 g/dl (3.5-5.0); Alkaline Phosphatase 74 U/L (38-126); Blood Urea Nitrogen 7 mg/dl (7-17); Calcium 8.5 mg/dl (8.4-10.2); Carbon Dioxide 24 mmol/L (22-30); Chloride 98 mmol/L (98-107); Estimated Creatinine Clearance 60 ml/min; Glucose 95 mg/dl (70-99); Potassium 3.9 mmol/L (3.5-5.1); Sodium 132 mmol/L (135-145); Total Bilirubin 0.7 mg/dl (0.2-1.3); Total Protein 6.7 g/dl (6.3-8.2); eGFR > 60.00
--- NOTE | 2024-07-17 08:53 | W.PN.HOSP.TC ---
Today's Communication/Plan
-
Check urine and serum uric acid
Stop IVF
Start amlodipine, add PRN hydralazine
Assessment / Plan
Assessment / Plan
Physical Exam
General: No Fever or Chills
HEENT: Normocephalic, Anicteric, PERRLA, [place] Conjunctivae and No Ptosis
Respiratory: Clear; No Wheezes, Rales or Rhonchi
Cardiac: S1/S2
GI: Soft, Non Tender, Non Distended, Normal Bowel Sounds
Rectal: No bleeding
Genito-urinary: No hematuria
Musculoskeletal: No Clubbing, No Cyanosis and No Edema
Skin: Warm and Dry; No Rash or Jaundice
Neuro: Awake, oriented to surroundings, forgetful . She followed commands.
Psych: Calm and Depressed (Denies suicidal ideation)
#Generalized weakness secondary to decreased oral intake/weight loss 2 months
Probably related to ongoing memory impairment and depression.
-PT/OT/case management consult for SNF placement
-Dietary consult
# UTI with enterococcus. Uncomplicated
No leukocytosis, no fevers, no dysuria
s/p one dose of Fosfomycin.
Patient is allergic to penicillin. She is on nortriptyline, to avoid quinolones antibiotics due to QT interval prolongation concern.
#Acute on Chronic Depression with weight loss
-Patient reports feeling depressed lack of activity lack of interest in getting up and doing things getting dressed, patient lives alone independent at [facility]
-Consulted Psychiatry, recommendation: Checking Nortriptyline level; would continue current antidepressants including nortriptyline and Abilify.
-Continue Abilify 1 mg p.o. daily, nortriptyline 50 mg every afternoon
#Acute on chronic hyponatremia
low urine Osmol, low urine sodium, low serum osmol, normal random cortisol.
NA corrected from 129 to 132 over normal saline challenge. Seems consistent with SIADH or Reset Osmostat, will check urine and serum uric acid level.
-TSH low with normal free T4
-
Consulted nephrology, input appreciated
# Severe protein caloric malnutrition. Consulted dietitian
# Persistent high BP, likely essential HTN, untreated
will start her on amlodipine
Add PRN oral Hydralazine
#Hypothyroidism
-Levothyroxine 50 mcg po daily
TSH 0.11, free T4 1.48(NML)
#Fibromyalgia
Continue vitamin B-12 1000 mcg p.o. daily
#Constipation
-Continue MiraLAX 17 g daily
#HLD
-Continue simvastatin 10 mg every afternoon
DVT prophylaxis
Subcu heparin
DNR per pt
Total time spent to see the patient, examine the patient, review data and lab results, discuss treatment plan with patient and nursing staff around 55 minutes
Anticipated Discharge: 24 - 48 hours
Subjective/Interval History
-
Date of Service: July 17, 2024
She reports loss of appetite
No chest pain or abd pain
She denies swallowing problem
Objective Data
-
Labs:
Laboratory Results
07/17/24
07:42
WBC 5.5
Hgb 14.8
Hct 42.3
Plt Count 299
Sodium 132 L
Potassium 3.9
Chloride 98
Carbon Dioxide 24
BUN 7
Creatinine 0.6
Glucose 95
Calcium 8.5
Total Bilirubin 0.7
AST 22
ALT 14
Alkaline Phosphatase 74
Vital Signs:
Vital Signs
Temp Pulse Resp BP Pulse Ox
97.4 F 83 16 181/96 98
07/16/24 23:05 07/17/24 01:16 07/16/24 23:05 07/17/24 01:16 07/16/24 23:05
I&O
02/04/25 02/05/25 02/06/25
06:59 06:59 06:59
Intake Total 240 / 240 2835 / 2835
Balance 240 / 240 2835 / 2835
[2024-07-17 11:22] VITALS: BP 175/105; PULSE 96
--- NOTE | 2024-07-17 14:09 | CM ---
Addendum entered by Blanche Muir 07/17/24 14:17:
[facility]
Call Ryne with report [phone]
Original Note:
Patient was seen by physical therapy and recommendation is for home with home care when stable, case reviewer spoke with patient about [facility] and patient is not sure and wants to think about it.
Plan; Patient to to [facility] when stable.
--- NOTE | 2024-07-17 14:58 | W.PN.UPDATE ---
Update Note
Progress Note Update
patient seen chart reviewed. spoke with nursing and with patient's daughter. d reports patient's psych retired fall. she has seen her pcp whom d says is not really comfortable doing her psych meds. she has been unable to find anyone
else[place] the person patient relies upon from day to day. d perceives that her departure for the winter 'pushed my mother over the edge' patient is not eating. she has lost weight. d asks that her
mother take something for anxiety and for depression. patient is calling her multiple times daily 'my car insurance is due in three months you have to take care of it today. ' d says this px is very typical of her mother when she gets very
depressed. d would like to forestall her mother going to a nh. d suggests too an in home health aide for a months or so. will have cm call d to discuss. patient told me [facility] has changed ownership and it has gone downhill. patient tells me
she is unhappy with the regime and the changes they have made. d does not think things are that bad and that given some time [facility] will get its act together. she believes mom's complaints are a little exaggerated and are perhaps colored by
mom's depression.
patient does admit she is very depressed. she is not sleeping well. she is not eating much. ( d says her pcp got her obsessed with healthy eating and she had stopped eating some of the things she loved )she has lost some weight over the months.
her current weight is 121 she has lost 10 lbs since xmas says d. she is not enjoying anything and her energy level is poor. d says patient was a very active participant at [facility] before depression exacerbated. discussed w patient and d adding
xanax .125 mg bid for anxiety and changing from pamelor to remeron. pamelor causes orthostasis which patient is experiencing now. pamelor also can be associated w hyponatremia another issue for patient. remeron might help to w appetite and sleep.
will start with 15 mg po q hs and monitor serum sodium. will follow
[2024-07-17 15:00] VITALS: BP 198/117
[2024-07-17] MEDS: LIPITOR 10 MG PO (16:19)
[2024-07-17] MEDS: APRESOLINE 5 MG PO (16:26)
--- NOTE | 2024-07-17 17:45 | W.PN.NEPH.PH ---
Today's Communication / Plan
-
observe with FR
Assessment/Plan
-
Impression:
Euvolemic hyponatremia (129)
Chronic hyponatremia
Dyslipidemia
Anxiety and depression
Presentation with weakness and fatigue
Enterococcus UTI
History of orthostatic hypotension
Plan:
Euvolemic hyponatremia-sodium stable at 132 with FR
-I do not think hyponatremia is the etiology of her weakness
-Urine osmolality of 150 is not consistent with significant SIADH
-Urine sodium of 28: unsure of significance
-Abilify (second generation antipsychotics )has rarely been associated with hyponatremia but there are case reports
-Maintain fluid restriction at 48 oz
-Thyroid rate checked tests are within normal limits, levothyroxine discontinued a couple weeks prior
neg CXR
orthostatic vitals noted, permissive HTN upto 150s is fine , cortisol fine
started Amodipine per primary-monitor response-may take time, prn hydralazine meantime
-
-
Date of Service: July 17, 2024
CC / HPI / ROS
-
Chief Complaint:
Hyponatremia
History of Present Illness:
sodium better at 132, BP high
no fever
Review of Systems:
no cp or sob
no THAYER r vision changes
Labs
-
Labs:
WBC 5.5 10^3/uL (4.8-10.8) 07/17/24 07:42
RBC 4.88 10^6/uL (4.20-5.40) 07/17/24 07:42
Hgb 14.8 g/dL (12.0-16.0) 07/17/24 07:42
Hct 42.3 % (37.0-47.0) 07/17/24 07:42
Plt Count 299 10^3/uL (130-400) 07/17/24 07:42
Sodium 132 mmol/L (135-145) L 07/17/24 07:42
Potassium 3.9 mmol/L (3.5-5.1) 07/17/24 07:42
Chloride 98 mmol/L (98-107) 07/17/24 07:42
Carbon Dioxide 24 mmol/L (22-30) 07/17/24 07:42
BUN 7 mg/dl (7-17) 07/17/24 07:42
Creatinine 0.6 mg/dL (0.6-1.0) 07/17/24 07:42
eGFR > 60.00 07/17/24 07:42
Glucose 95 mg/dl (70-99) 07/17/24 07:42
Calcium 8.5 mg/dl (8.4-10.2) 07/17/24 07:42
Albumin 3.9 g/dl (3.5-5.0) 07/17/24 07:42
Physical Exam
-
Vital Signs:
Vital Signs
Temp Pulse Resp BP Pulse Ox
97.3 F 78 22 195/110 95
07/17/24 15:00 07/17/24 16:26 07/17/24 15:00 07/17/24 16:26 07/17/24 15:00
Cardiovascular:: Regular rate and rhythm
Respiratory:: Bilateral: CTA
Lung Excursion:: Normal
Abdomen:: Nontender and Soft
Extremity Edema:: None: Bilateral:
Chase Catheter: No
[2024-07-17] MEDS: REMERON 15 MG PO (20:59)
[2024-07-17] MEDS: XANAX 0.125 MG PO (20:59)
[2024-07-17 23:36] VITALS: BP 144/90; BP 173/93; BP 88/58; PULSE 101; PULSE 110; PULSE 91
[2024-07-18 03:21] VITALS: BP 165/86
[2024-07-18] MEDS: APRESOLINE 5 MG PO (03:35)
[2024-07-18 06:00] VITALS: BMI 18.7
[2024-07-18 07:00] VITALS: BP 151/101; BP 171/107; BP 187/96; PULSE 110; PULSE 97; PULSE 99
[2024-07-18] MEDS: ABILIFY 1 MG PO (08:28)
[2024-07-18] MEDS: XANAX 0.125 MG PO ×2 (08:29→21:05)
[2024-07-18] MEDS: VITAMIN D3 (cholecalciferol) 50 MCG PO (08:30)
[2024-07-18] MEDS: VITAMIN B-12 1000 MCG PO (08:30)
[2024-07-18] MEDS: NORVASC 10 MG PO (08:30)
[2024-07-18] MEDS: HEPARIN 5000 UNITS SC ×2 (08:30→21:05)
[2024-07-18 09:06] LABS: ALT (SGPT) 16 U/L (0-35); AST (SGOT) 25 U/L (14-36); Albumin 4.1 g/dl (3.5-5.0); Alkaline Phosphatase 99 U/L (38-126); Blood Urea Nitrogen 11 mg/dl (7-17); Calcium 9.7 mg/dl (8.4-10.2); Carbon Dioxide 28 mmol/L (22-30); Chloride 97 mmol/L (98-107); Estimated Creatinine Clearance 50 ml/min; Glucose 109 mg/dl (70-99); Sodium 132 mmol/L (135-145); Total Bilirubin 0.7 mg/dl (0.2-1.3); Total Protein 7.1 g/dl (6.3-8.2); eGFR > 60.00
--- NOTE | 2024-07-18 10:49 | W.PN.HOSP.TC ---
Addendum entered and electronically signed by Varun Villa MD 07/18/24 11:08:
Addendum
Patient already on 10 mg amlodipine. Will add 10 mg of lisinopril and monitor blood pressure
Original Note:
Today's Communication/Plan
-
give another dose of amlodipine
Assessment / Plan
Assessment / Plan
Physical Exam
General: No Fever or Chills
HEENT: Normocephalic, Anicteric, PERRLA, [place] Conjunctivae and No Ptosis
Respiratory: Clear; No Wheezes, Rales or Rhonchi
Cardiac: S1/S2
GI: Soft, Non Tender, Non Distended, Normal Bowel Sounds
Rectal: No bleeding
Genito-urinary: No hematuria
Musculoskeletal: No Clubbing, No Cyanosis and No Edema
Skin: Warm and Dry; No Rash or Jaundice
Neuro: Awake, oriented to surroundings, forgetful . She followed commands.
Psych: Calm and Depressed (Denies suicidal ideation)
#Generalized weakness secondary to decreased oral intake/weight loss 2 months
Seems related to ongoing depression.
-PT/OT/case management consult for SNF placement
-Dietary consulted
# UTI with enterococcus. Uncomplicated
No leukocytosis, no fevers, no dysuria
s/p one dose of Fosfomycin.
Patient is allergic to penicillin. She is on nortriptyline, to avoid quinolones antibiotics due to QT interval prolongation concern.
#Acute on Chronic Depression with weight loss
-Patient reported feeling depressed lack of activity lack of interest in getting up and doing things getting dressed, patient lives alone independent at [facility]
-Consulted Psychiatry, recommendation: stopped nortriptyline, c/w Abilify, started Remeron, low dose BID Xanax.
-Continue Abilify 1 mg p.o. daily, nortriptyline 50 mg every afternoon
#Acute on chronic hyponatremia
low urine Osmol, low urine sodium, low serum osmol, normal random cortisol.
NA corrected from 129 to 132 over normal saline challenge. Seems consistent with SIADH or Reset Osmostat, low Fe urate , likely reset Osmostat situation, c/w fluid restriction, encourage protein intake.
-TSH low with normal free T4
- Consulted nephrology, input appreciated
# Severe protein caloric malnutrition. Consulted dietitian
# Persistent high BP, likely essential HTN, untreated
Still uncontrolled, will given another 5 mg amlodipine
Add PRN oral Hydralazine
#Hypothyroidism
-Levothyroxine 50 mcg po daily
TSH 0.11, free T4 1.48(NML)
#Fibromyalgia
Continue vitamin B-12 1000 mcg p.o. daily
#Constipation
-Continue MiraLAX 17 g daily
#HLD
-Continue simvastatin 10 mg every afternoon
DVT prophylaxis
Subcu heparin
DNR per pt
Total time spent to see the patient, examine the patient, review data and lab results, discuss treatment plan with patient and nursing staff around 55 minutes
Anticipated Discharge: > 48 hours
Subjective/Interval History
-
Date of Service: July 18, 2024
She ramos snort feels changes yet
Objective Data
-
Labs:
Laboratory Results
07/18/24
08:07
Sodium 132 L
Potassium 4.0
Chloride 97 L
Carbon Dioxide 28
BUN 11
Creatinine 0.7
Glucose 109 H
Calcium 9.7
Total Bilirubin 0.7
AST 25
ALT 16
Alkaline Phosphatase 99
Vital Signs:
Vital Signs
Temp Pulse Resp BP Pulse Ox
97.8 F 97 20 187/96 98
07/18/24 07:00 07/18/24 08:30 07/18/24 07:00 07/18/24 08:30 07/18/24 07:00
I&O
07/17/24 07/18/24 07/19/24
06:59 06:59 06:59
Intake Total 2835 / 2835 720 / 720 480 / 480
Balance 2835 / 2835 720 / 720 480 / 480
[2024-07-18 11:08] VITALS: BP 148/78; PULSE 85; O2SAT 96
[2024-07-18] MEDS: ZESTRIL 10 MG PO (11:34)
[2024-07-18 15:00] VITALS: BP 142/72
--- NOTE | 2024-07-18 16:29 | W.PN.NEPH.PH ---
Today's Communication / Plan
-
cotn FR
BP meds adjustment per primary
Assessment/Plan
-
Impression:
Euvolemic hyponatremia (129)
Chronic hyponatremia
Dyslipidemia
Anxiety and depression
Presentation with weakness and fatigue
Enterococcus UTI
History of orthostatic hypotension
Plan:
Euvolemic hyponatremia-sodium stable at 132 with FR
-I do not think hyponatremia is the etiology of her weakness
-Urine osmolality of 150 is not consistent with significant SIADH
-Urine sodium of 28: unsure of significance
-Abilify (second generation antipsychotics )has rarely been associated with hyponatremia but there are case reports
-Maintain fluid restriction at 48 oz
-Thyroid rate checked tests are within normal limits, levothyroxine discontinued a couple weeks prior
orthostatic vitals noted, permissive HTN upto 150s is ok , cortisol fine
started Amodipine per primary and added lisinopril today-monitor response-may take time, prn hydralazine meantime
-
-
Date of Service: July 18, 2024
CC / HPI / ROS
-
Chief Complaint:
Hyponatremia
History of Present Illness:
sodium stable at 132, BP improving
no fever
Review of Systems:
no cp or sob
no dizziness
Labs
-
Labs:
WBC 5.5 10^3/uL (4.8-10.8) 07/17/24 07:42
RBC 4.88 10^6/uL (4.20-5.40) 07/17/24 07:42
Hgb 14.8 g/dL (12.0-16.0) 07/17/24 07:42
Hct 42.3 % (37.0-47.0) 07/17/24 07:42
Plt Count 299 10^3/uL (130-400) 07/17/24 07:42
Sodium 132 mmol/L (135-145) L 07/18/24 08:07
Potassium 4.0 mmol/L (3.5-5.1) 07/18/24 08:07
Chloride 97 mmol/L (98-107) L 07/18/24 08:07
Carbon Dioxide 28 mmol/L (22-30) 07/18/24 08:07
BUN 11 mg/dl (7-17) 07/18/24 08:07
Creatinine 0.7 mg/dL (0.6-1.0) 07/18/24 08:07
eGFR > 60.00 07/18/24 08:07
Glucose 109 mg/dl (70-99) H 07/18/24 08:07
Calcium 9.7 mg/dl (8.4-10.2) 07/18/24 08:07
Albumin 4.1 g/dl (3.5-5.0) 07/18/24 08:07
Physical Exam
-
Vital Signs:
Vital Signs
Temp Pulse Resp BP Pulse Ox
98.3 F 85 19 142/72 97
07/18/24 15:00 07/18/24 15:00 07/18/24 15:00 07/18/24 15:00 07/18/24 15:00
Cardiovascular:: Regular rate and rhythm
Respiratory:: Bilateral: CTA
Lung Excursion:: Normal
Abdomen:: Nontender and Soft
Extremity Edema:: None: Bilateral:
Chase Catheter: No
[2024-07-18] MEDS: LIPITOR 10 MG PO (17:33)
[2024-07-18] MEDS: REMERON 15 MG PO (21:05)
[2024-07-18 23:00] VITALS: BP 113/69; BP 144/74; BP 91/58; PULSE 105; PULSE 76; PULSE 93
[2024-07-19 06:00] VITALS: BMI 18.9
[2024-07-19 07:23] VITALS: BP 126/79
[2024-07-19] MEDS: ABILIFY 1 MG PO (07:55)
[2024-07-19] MEDS: VITAMIN D3 (cholecalciferol) 50 MCG PO (07:55)
[2024-07-19] MEDS: VITAMIN B-12 1000 MCG PO (07:56)
[2024-07-19] MEDS: NORVASC 10 MG PO (07:56)
[2024-07-19] MEDS: XANAX 0.125 MG PO (07:56)
[2024-07-19] MEDS: HEPARIN 5000 UNITS SC ×2 (07:57→21:24)
[2024-07-19 08:37] VITALS: BP 117/68; PULSE 80; O2SAT 95
--- NOTE | 2024-07-19 08:52 | W.PN.HOSP.TC ---
Today's Communication/Plan
-
dc planning
Assessment / Plan
Assessment / Plan
Physical Exam
General: No Fever or Chills
HEENT: Normocephalic, Anicteric, PERRLA, [place] Conjunctivae and No Ptosis
Respiratory: Clear; No Wheezes, Rales or Rhonchi
Cardiac: S1/S2
GI: Soft, Non Tender, Non Distended, Normal Bowel Sounds
Rectal: No bleeding
Genito-urinary: No hematuria
Musculoskeletal: No Clubbing, No Cyanosis and No Edema
Skin: Warm and Dry; No Rash or Jaundice
Neuro: Awake, oriented to surroundings, forgetful . She followed commands.
Psych: Calm and Depressed (Denies suicidal ideation)
#Generalized weakness secondary to decreased oral intake/weight loss 2 months
Seems related to ongoing depression.
-PT/OT/case management consult for SNF placement
-Dietary consulted
# UTI with enterococcus. Uncomplicated
No leukocytosis, no fevers, no dysuria
s/p one dose of Fosfomycin.
Patient is allergic to penicillin. She is on nortriptyline, to avoid quinolones antibiotics due to QT interval prolongation concern.
#Acute on Chronic Depression with weight loss
-Patient reported feeling depressed lack of activity lack of interest in getting up and doing things getting dressed, patient lives alone independent at [facility]
-Consulted Psychiatry, recommendation: stopped nortriptyline, c/w Abilify, started Remeron, low dose BID Xanax.
-Continue Abilify 1 mg p.o. daily.
#Acute on chronic hyponatremia
low urine Osmol, low urine sodium, low serum osmol, normal random cortisol.
NA corrected from 129 to 132 over normal saline challenge. Seems consistent with SIADH or Reset Osmostat, low Fe urate , likely reset Osmostat situation, c/w fluid restriction, encourage protein intake.
-TSH low with normal free T4
- Consulted nephrology, input appreciated
# Severe protein caloric malnutrition. Consulted dietitian
# Persistent high BP, likely essential HTN, untreated
Better controlled, c/w 10 mg amlodipine and 10 mg Lisinopril.
Add PRN oral Hydralazine
#Hypothyroidism
-Levothyroxine 50 mcg po daily
TSH 0.11, free T4 1.48(NML)
#Fibromyalgia
Continue vitamin B-12 1000 mcg p.o. daily
#Constipation
-Continue MiraLAX 17 g daily
#HLD
-Continue simvastatin 10 mg every afternoon
DVT prophylaxis
Subcu heparin
DNR per pt
Total time spent to see the patient, examine the patient, review data and lab results, discuss treatment plan with patient and nursing staff around 55 minutes
Anticipated Discharge: Within 24 hours
Subjective/Interval History
-
Date of Service: July 19, 2024
No complaints
No fevers
Objective Data
-
Vital Signs:
Vital Signs
Temp Pulse Resp BP Pulse Ox
98.1 F 88 14 126/79 95
07/19/24 07:23 07/19/24 07:56 07/19/24 07:23 07/19/24 07:56 07/19/24 07:23
I&O
07/18/24 07/19/24 07/20/24
06:59 06:59 06:59
Intake Total 720 / 720 480 / 480
Balance 720 / 720 480 / 480
[2024-07-19] MEDS: ZESTRIL 10 MG PO (09:05)
--- NOTE | 2024-07-19 10:14 | W.PN.NEPH.PH ---
Today's Communication / Plan
-
Observe on fluid restriction
Assessment/Plan
-
Impression:
Euvolemic hyponatremia (129)
Chronic hyponatremia
Dyslipidemia
Anxiety and depression
Presentation with weakness and fatigue
Enterococcus UTI
History of orthostatic hypotension
Plan:
Euvolemic hyponatremia-sodium stable at 132 with FR
-I do not think hyponatremia is the etiology of her weakness
-Urine osmolality of 150 is not consistent with significant SIADH
-Urine sodium of 28: unsure of significance
-Abilify (second generation antipsychotics )has rarely been associated with hyponatremia but there are case reports
-Maintain fluid restriction at 48 oz
-Thyroid rate checked tests are within normal limits, levothyroxine discontinued a couple weeks prior
orthostatic vitals noted, permissive HTN upto 150s is ok , cortisol fine
started Amodipine per primary and added lisinopril monitor response-may take time, prn hydralazine meantime (blood pressure improving
-
-
Date of Service: July 19, 2024
CC / HPI / ROS
-
Chief Complaint:
Hyponatremia
History of Present Illness:
sodium stable at 132, BP improving
no fever
Review of Systems:
no cp or sob
no dizziness
Labs
-
Labs:
WBC 5.5 10^3/uL (4.8-10.8) 07/17/24 07:42
RBC 4.88 10^6/uL (4.20-5.40) 07/17/24 07:42
Hgb 14.8 g/dL (12.0-16.0) 07/17/24 07:42
Hct 42.3 % (37.0-47.0) 07/17/24 07:42
Plt Count 299 10^3/uL (130-400) 07/17/24 07:42
Sodium 132 mmol/L (135-145) L 07/18/24 08:07
Potassium 4.0 mmol/L (3.5-5.1) 07/18/24 08:07
Chloride 97 mmol/L (98-107) L 07/18/24 08:07
Carbon Dioxide 28 mmol/L (22-30) 07/18/24 08:07
BUN 11 mg/dl (7-17) 07/18/24 08:07
Creatinine 0.7 mg/dL (0.6-1.0) 07/18/24 08:07
eGFR > 60.00 07/18/24 08:07
Glucose 109 mg/dl (70-99) H 07/18/24 08:07
Calcium 9.7 mg/dl (8.4-10.2) 07/18/24 08:07
Albumin 4.1 g/dl (3.5-5.0) 07/18/24 08:07
Physical Exam
-
Vital Signs:
Vital Signs
Temp Pulse Resp BP Pulse Ox
98.1 F 88 14 126/79 95
07/19/24 07:23 07/19/24 07:56 07/19/24 07:23 07/19/24 07:56 07/19/24 07:23
Cardiovascular:: Regular rate and rhythm
Respiratory:: Bilateral: CTA
Lung Excursion:: Normal
Abdomen:: Nontender and Soft
Extremity Edema:: None: Bilateral:
Chase Catheter: No
--- NOTE | 2024-07-19 14:36 | CM ---
Chart reviewed and recommendation from physical therapy is for home health, patient has declined home health. Will review again with patient closer to discharge.
Plan; Patient to return to [facility] when stable.
--- NOTE | 2024-07-19 15:31 | W.PN.UPDATE ---
Update Note
Progress Note Update
patient seen chart reviewed. spoke with case mgt. patient continues to be very withdrawn. she was up in a chair for much of the day. noted PT evaluation this am. she will need to continue with further treatment. Noted PT is anticipating she
will be able to return to [place] with in home PT although ms gutierrez with whom i spoke says patient did not want vna. patient seems rather lethargic to me. of course that can be a sx of depression as well. will dc sedating meds including abilify
and xanax. will make xanax prn. adding ritalin or wellbutrin to the remeron might be an option ...discussed w patient not ready to consider this. she worries it will make her anxious. psych will follow.
[2024-07-19 16:12] VITALS: BP 140/72
[2024-07-19] MEDS: LIPITOR 10 MG PO (16:59)
[2024-07-19] MEDS: REMERON 15 MG PO (21:24)
[2024-07-19 23:05] VITALS: BP 108/62; BP 124/70; BP 94/64; PULSE 106; PULSE 79; PULSE 91
[2024-07-20 05:28] VITALS: BP 122/75; BP 130/78; BP 131/77
[2024-07-20 06:00] VITALS: BMI 18.7
[2024-07-20 07:00] VITALS: BP 138/81
[2024-07-20 07:30] LABS: Blood Urea Nitrogen 30 mg/dl (7-17); Calcium 9.5 mg/dl (8.4-10.2); Carbon Dioxide 29 mmol/L (22-30); Chloride 97 mmol/L (98-107); Estimated Creatinine Clearance 35 ml/min; Glucose 86 mg/dl (70-99); Potassium 4.2 mmol/L (3.5-5.1); Sodium 132 mmol/L (135-145); eGFR 55.21
[2024-07-20 08:00] VITALS: BP 138/81
--- NOTE | 2024-07-20 08:45 | W.PN.HOSP.TC ---
Today's Communication/Plan
-
dc planning
Resume Abilify
Assessment / Plan
Assessment / Plan
Physical Exam
General: No Fever or Chills
HEENT: Normocephalic, Anicteric, PERRLA, [place] Conjunctivae and No Ptosis
Respiratory: Clear; No Wheezes, Rales or Rhonchi
Cardiac: S1/S2
GI: Soft, Non Tender, Non Distended, Normal Bowel Sounds
Rectal: No bleeding
Genito-urinary: No hematuria
Musculoskeletal: No Clubbing, No Cyanosis and No Edema
Skin: Warm and Dry; No Rash or Jaundice
Neuro: Awake, oriented to surroundings, forgetful . She followed commands.
Psych: Calm and Depressed (Denies suicidal ideation)
#Generalized weakness secondary to decreased oral intake/weight loss 2 months
Seems related to ongoing depression.
-PT/OT/case management consult for SNF placement
-Dietary consulted
# UTI with enterococcus. Uncomplicated
No leukocytosis, no fevers, no dysuria
s/p one dose of Fosfomycin.
Patient is allergic to penicillin. She is on nortriptyline, to avoid quinolones antibiotics due to QT interval prolongation concern.
#Acute on Chronic Depression with weight loss
-Patient reported feeling depressed lack of activity lack of interest in getting up and doing things getting dressed, patient lives alone independent at [facility]
-Consulted Psychiatry, recommendation: stopped nortriptyline, c/w Abilify, started Remeron, low dose BID Xanax.
-Continue Abilify 1 mg p.o. daily. Was dc but nursing staff reported that daughter was concerned about it, she is already on low dose, we can resume
#Acute on chronic hyponatremia
low urine Osmol, low urine sodium, low serum osmol, normal random cortisol.
NA corrected from 129 to 132 over normal saline challenge. Seems consistent with SIADH or Reset Osmostat, low Fe urate , likely reset Osmostat situation, c/w fluid restriction, encourage protein intake.
-TSH low with normal free T4
- Consulted nephrology, input appreciated
# Severe protein caloric malnutrition. Consulted dietitian
# Persistent high BP, likely essential HTN, untreated
Better controlled, c/w 10 mg amlodipine and 10 mg Lisinopril.
Add PRN oral Hydralazine
#Hypothyroidism
-Levothyroxine 50 mcg po daily
TSH 0.11, free T4 1.48(NML)
#Fibromyalgia
Continue vitamin B-12 1000 mcg p.o. daily
#Constipation
-Continue MiraLAX 17 g daily
#HLD
-Continue simvastatin 10 mg every afternoon
DVT prophylaxis
Subcu heparin
DNR per pt
Total time spent to see the patient, examine the patient, review data and lab results, discuss treatment plan with patient and nursing staff around 55 minutes
Anticipated Discharge: Within 24 hours
Subjective/Interval History
-
Date of Service: July 20, 2024
No chest pain
No sob
Objective Data
-
Labs:
Laboratory Results
07/20/24
06:26
Sodium 132 L
Potassium 4.2
Chloride 97 L
Carbon Dioxide 29
BUN 30 H
Creatinine 1.0
Glucose 86
Calcium 9.5
Vital Signs:
Vital Signs
Temp Pulse Resp BP Pulse Ox
97.4 F 95 15 138/81 98
07/20/24 07:00 07/20/24 07:00 07/20/24 07:00 07/20/24 07:00 07/20/24 07:00
I&O
07/19/24 07/20/24 07/21/24
06:59 06:59 06:59
Intake Total 480 / 480 1200 / 1200
Balance 480 / 480 1200 / 1200
--- NOTE | 2024-07-20 09:44 | W.PN.NEPH.PH ---
Today's Communication / Plan
-
Blood pressure with improved control on amlodipine and lisinopril
Sodium stable 132 on fluid restriction
Patient stable from nephrology perspective for discharge
Assessment/Plan
-
Impression:
Euvolemic hyponatremia (129)
Chronic hyponatremia
Dyslipidemia
Anxiety and depression
Presentation with weakness and fatigue
Enterococcus UTI
History of orthostatic hypotension
Plan:
Euvolemic hyponatremia-sodium stable at 132 with FR
-I do not think hyponatremia is the etiology of her weakness
-Urine osmolality of 150 is not consistent with significant SIADH
-Urine sodium of 28: unsure of significance
-Abilify (second generation antipsychotics )has rarely been associated with hyponatremia but there are case reports
-Maintain fluid restriction at 48 oz
-Thyroid rate checked tests are within normal limits, levothyroxine discontinued a couple weeks prior
orthostatic vitals noted, permissive HTN upto 150s is ok , cortisol fine
maintain Amodipine per primary and added lisinopril monitor response-may take time, prn hydralazine meantime (blood pressure improving)
-
-
Date of Service: July 20, 2024
CC / HPI / ROS
-
Chief Complaint:
Hyponatremia
History of Present Illness:
sodium stable at 132, BP improving
no fever
Review of Systems:
no cp or sob
no dizziness
Labs
-
Labs:
WBC 5.5 10^3/uL (4.8-10.8) 07/17/24 07:42
RBC 4.88 10^6/uL (4.20-5.40) 07/17/24 07:42
Hgb 14.8 g/dL (12.0-16.0) 07/17/24 07:42
Hct 42.3 % (37.0-47.0) 07/17/24 07:42
Plt Count 299 10^3/uL (130-400) 07/17/24 07:42
Sodium 132 mmol/L (135-145) L 07/20/24 06:26
Potassium 4.2 mmol/L (3.5-5.1) 07/20/24 06:26
Chloride 97 mmol/L (98-107) L 07/20/24 06:26
Carbon Dioxide 29 mmol/L (22-30) 07/20/24 06:26
BUN 30 mg/dl (7-17) H 07/20/24 06:26
Creatinine 1.0 mg/dL (0.6-1.0) 07/20/24 06:26
eGFR 55.21 07/20/24 06:26
Glucose 86 mg/dl (70-99) 07/20/24 06:26
Calcium 9.5 mg/dl (8.4-10.2) 07/20/24 06:26
Albumin 4.1 g/dl (3.5-5.0) 07/18/24 08:07
Physical Exam
-
Vital Signs:
Vital Signs
Temp Pulse Resp BP Pulse Ox
97.4 F 95 15 138/81 98
07/20/24 07:00 07/20/24 07:00 07/20/24 07:00 07/20/24 07:00 07/20/24 07:00
Cardiovascular:: Regular rate and rhythm
Respiratory:: Bilateral: CTA
Lung Excursion:: Normal
Abdomen:: Nontender and Soft
Extremity Edema:: None: Bilateral:
Chase Catheter: No
[2024-07-20] MEDS: ABILIFY 1 MG PO (10:04)
[2024-07-20] MEDS: VITAMIN D3 (cholecalciferol) 50 MCG PO (10:05)
[2024-07-20] MEDS: HEPARIN 5000 UNITS SC ×2 (10:05→20:55)
[2024-07-20] MEDS: VITAMIN B-12 1000 MCG PO (10:05)
[2024-07-20] MEDS: ZESTRIL 10 MG PO (10:10)
[2024-07-20] MEDS: NORVASC 10 MG PO (10:10)
--- NOTE | 2024-07-20 13:07 | W.PN.UPDATE ---
Update Note
Progress Note Update
Pt seen, sitting upright in bed. Alert, calm, cooperative, making good eye contact. Affect mildly dysphoric and anxious, states she is worried. Tolerating switch from Nortriptyline to Remeron. Has Xanax prn- not taken since routine dose stopped.
Imp: Unspecified depression, anxiety/worry
Rec: continue trial of Remeron at 15 mg HS, will need outpatient med mgt to titrate the dose (can continue to be managed by PCP), may need to be increased for full benefit
will follow
[2024-07-20 15:09] VITALS: BP 118/70
[2024-07-20] MEDS: LIPITOR 10 MG PO (17:51)
--- NOTE | 2024-07-20 18:30 | PTCARENOTE ---
Assumed care of pt from previous nurse. pt denies pain. pt flat, engaging. Pt with some minimal anxiety, active listening and reassurance provided. Pt call [place] is within reach, pt rings aden. will cont to monitor.
[2024-07-20 19:30] VITALS: BP 120/85; BP 131/93; BP 135/82; PULSE 78; PULSE 80; PULSE 99
[2024-07-20] MEDS: REMERON 15 MG PO (20:55)
[2024-07-20] MEDS: DESENEX/MITRAZOL/ZEASORB 1 APPLIC TOPICAL (20:59)
[2024-07-20 23:40] VITALS: BP 141/74
[2024-07-21 01:14] LABS: Nortriptyline 68 ng/mL (50-150)
[2024-07-21 06:00] VITALS: BMI 18.9
[2024-07-21 07:56] VITALS: BP 127/68
[2024-07-21 09:31] LABS: Blood Urea Nitrogen 32 mg/dl (7-17); Calcium 9.7 mg/dl (8.4-10.2); Carbon Dioxide 25 mmol/L (22-30); Chloride 99 mmol/L (98-107); Estimated Creatinine Clearance 39 ml/min; Glucose 107 mg/dl (70-99); Potassium 4.1 mmol/L (3.5-5.1); Sodium 132 mmol/L (135-145); eGFR > 60.00
[2024-07-21] MEDS: HEPARIN 5000 UNITS SC ×2 (09:31→21:26)
[2024-07-21] MEDS: VITAMIN D3 (cholecalciferol) 50 MCG PO (09:31)
[2024-07-21] MEDS: NORVASC 10 MG PO (09:31)
[2024-07-21] MEDS: ABILIFY 1 MG PO (09:32)
[2024-07-21] MEDS: DESENEX/MITRAZOL/ZEASORB 1 APPLIC TOPICAL ×2 (09:32→21:26)
[2024-07-21] MEDS: VITAMIN B-12 1000 MCG PO (09:32)
[2024-07-21] MEDS: ZESTRIL 10 MG PO (09:35)
--- NOTE | 2024-07-21 11:21 | W.PN.NEPH.PH ---
Today's Communication / Plan
-
Observe on fluid restrict
Assessment/Plan
-
Impression:
Euvolemic hyponatremia (129)
Chronic hyponatremia
Dyslipidemia
Anxiety and depression
Presentation with weakness and fatigue
Enterococcus UTI
History of orthostatic hypotension
Plan:
Euvolemic hyponatremia-sodium stable at 132 with FR
-I do not think hyponatremia is the etiology of her weakness
-Urine osmolality of 150 is not consistent with significant SIADH
-Urine sodium of 28: unsure of significance
-Abilify (second generation antipsychotics )has rarely been associated with hyponatremia but there are case reports
-Maintain fluid restriction at 48 oz
-Thyroid rate checked tests are within normal limits, levothyroxine discontinued a couple weeks prior
orthostatic vitals noted, permissive HTN upto 150s is ok , cortisol fine
maintain Amlodipine and lisinopril (blood pressure improved)( these were both added this admission)
-
-
Date of Service: July 21, 2024
CC / HPI / ROS
-
Chief Complaint:
Hyponatremia
History of Present Illness:
sodium stable at 132,
Blood pressure stable on lisinopril and amlodipine
Review of Systems:
no cp or sob
no dizziness
Anxiety persist
Labs
-
Labs:
WBC 5.5 10^3/uL (4.8-10.8) 07/17/24 07:42
RBC 4.88 10^6/uL (4.20-5.40) 07/17/24 07:42
Hgb 14.8 g/dL (12.0-16.0) 07/17/24 07:42
Hct 42.3 % (37.0-47.0) 07/17/24 07:42
Plt Count 299 10^3/uL (130-400) 07/17/24 07:42
Sodium 132 mmol/L (135-145) L 07/21/24 09:11
Potassium 4.1 mmol/L (3.5-5.1) 07/21/24 09:11
Chloride 99 mmol/L (98-107) 07/21/24 09:11
Carbon Dioxide 25 mmol/L (22-30) 07/21/24 09:11
BUN 32 mg/dl (7-17) H 07/21/24 09:11
Creatinine 0.9 mg/dL (0.6-1.0) 07/21/24 09:11
eGFR > 60.00 07/21/24 09:11
Glucose 107 mg/dl (70-99) H 07/21/24 09:11
Calcium 9.7 mg/dl (8.4-10.2) 07/21/24 09:11
Albumin 4.1 g/dl (3.5-5.0) 07/18/24 08:07
Physical Exam
-
Vital Signs:
Vital Signs
Temp Pulse Resp BP Pulse Ox
97.6 F 87 15 127/68 94
07/21/24 07:56 07/21/24 07:56 07/21/24 07:56 07/21/24 07:56 07/21/24 07:56
Cardiovascular:: Regular rate and rhythm
Respiratory:: Bilateral: CTA
Lung Excursion:: Normal
Abdomen:: Nontender and Soft
Extremity Edema:: None: Bilateral:
Chase Catheter: No
--- NOTE | 2024-07-21 12:07 | W.PN.HOSP.TC ---
Today's Communication/Plan
-
Treat low thyroid
Fluid restriction
Encourage to eat
Assessment / Plan
Assessment / Plan
Physical Exam
General: No Fever or Chills
HEENT: Normocephalic, Anicteric, PERRLA, [place] Conjunctivae and No Ptosis
Respiratory: Clear; No Wheezes, Rales or Rhonchi
Cardiac: S1/S2
GI: Soft, Non Tender, Non Distended, Normal Bowel Sounds
Rectal: No bleeding
Genito-urinary: No hematuria
Musculoskeletal: No Clubbing, No Cyanosis and No Edema
Skin: Warm and Dry; No Rash or Jaundice
Neuro: Awake, oriented to surroundings, forgetful . She followed commands.
Psych: Calm and seems less depressed (Denies suicidal ideation)
#Generalized weakness secondary to decreased oral intake/weight loss 2 months
Seems related to ongoing depression. Also untreated hypothyroidism
-PT/OT/case management consult for SNF placement
-Dietary consulted
# UTI with enterococcus. Uncomplicated
No leukocytosis, no fevers, no dysuria
s/p one dose of Fosfomycin.
Patient is allergic to penicillin. She is on nortriptyline, to avoid quinolones antibiotics due to QT interval prolongation concern.
#Acute on Chronic Depression with weight loss
Underactive thyroid due to untreated hypothyroidism
-Patient reported feeling depressed lack of activity lack of interest in getting up and doing things getting dressed, patient lives alone independent at [facility]
-Consulted Psychiatry, recommendation: stopped nortriptyline, c/w Abilify, started Remeron, low dose BID Xanax.
-Continue Abilify 1 mg p.o. daily. Was dc but nursing staff reported that daughter was concerned about it, she is already on low dose, we can resume
#Acute on chronic hyponatremia
low urine Osmol, low urine sodium, low serum osmol, normal random cortisol.
NA corrected from 129 to 132 over normal saline challenge. Seems consistent with SIADH or Reset Osmostat, low Fe urate , likely reset Osmostat situation, c/w fluid restriction, encourage protein intake.
-TSH low with normal free T4
- Consulted nephrology, input appreciated
# Severe protein caloric malnutrition. Consulted dietitian
# Essential HTN, untreated, new diagnosis
Better controlled now , c/w 10 mg amlodipine and 10 mg Lisinopril.
No chest pain
No headache
Added PRN oral Hydralazine
#Hypothyroidism
-Was on Levothyroxine 50 mcg po daily
known non compliant to medications
TSH > 10 now
Started back on Synthroid. Will give one time dose of IV Synthroid and Increase to 75 mcg.
#Fibromyalgia
Continue vitamin B-12 1000 mcg p.o. daily
#Constipation
-Continue PRN MiraLAX 17 g daily
#HLD
No changes intended. Patient should have regular diet while dealing with poor appetite. per daughter, pt was also told to follow ( healthy diet) which resulted in limited options to the patient, fear of eating with poor nutritional status.
DVT prophylaxis
Subcu heparin
DNR
Total time spent to see the patient, examine the patient, review data and lab results, discuss treatment plan with patient, daughter and nursing staff around 57 minutes
Anticipated Discharge: 24 - 48 hours
Subjective/Interval History
-
Date of Service: July 21, 2024
She is not sure if she is starting to feel better regarding depression symptoms
Admits to sleeping more now
Objective Data
-
Labs:
Laboratory Results
07/21/24 07/21/24
06:05 09:11
Sodium Cancelled 132 L
Potassium Cancelled 4.1
Chloride Cancelled 99
Carbon Dioxide Cancelled 25
BUN Cancelled 32 H
Creatinine Cancelled 0.9
Glucose Cancelled 107 H
Calcium Cancelled 9.7
Vital Signs:
Vital Signs
Temp Pulse Resp BP Pulse Ox
97.6 F 87 15 127/68 94
07/21/24 07:56 07/21/24 07:56 07/21/24 07:56 07/21/24 07:56 07/21/24 07:56
I&O
07/20/24 07/21/24 07/22/24
06:59 06:59 06:59
Intake Total 1200 / 1200 480 / 480
Balance 1200 / 1200 480 / 480
[2024-07-21] MEDS: LEVOTHROID 50 MCG IV (12:31)
--- NOTE | 2024-07-21 14:00 | W.PN.UPDATE ---
Update Note
Progress Note Update
Pt seen, resting in bed. Mental status appears overall unchanged, mildly dysphoric and anxious, states she is worried. Tolerating switch from Nortriptyline to Remeron. Pt states she had a good appetite yesterday; is also sleeping better.
Imp: Unspecified depression, with anxiety/worry, appears to be improving
Rec: continue trial of Remeron at 15 mg HS, will need outpatient med mgt to titrate the dose (can continue to be managed by PCP). Would benefit from outpatient therapy
will follow
[2024-07-21 15:15] VITALS: BP 120/60
[2024-07-21] MEDS: LIPITOR 10 MG PO (16:54)
[2024-07-21] MEDS: REMERON 15 MG PO (21:26)
[2024-07-21 23:54] VITALS: BP 126/70
[2024-07-22] MEDS: SYNTHROID 75 MCG PO (05:16)
[2024-07-22 06:00] VITALS: BMI 18.8
[2024-07-22 07:00] VITALS: BP 143/77
[2024-07-22 07:25] LABS: Hematocrit 46.2 % (37.0-47.0); Hemoglobin 15.5 g/dL (12.0-16.0); Mean Corp Hgb Conc. 33.5 g/dL (33.0-37.0); Mean Corpuscular Hgb 29.8 pg (27.0-31.0); Mean Corpuscular Volume 88.7 fL (81.0-99.0); Mean Platelet Volume 8.9 fL (7.4-10.4); Platelet Count 289 10^3/uL (130-400); Red Blood Cell Count 5.21 10^6/uL (4.20-5.40); Red Cell Dist. Width 13.9 % (11.5-14.5); White Blood Cell Count 7.5 10^3/uL (4.8-10.8)
[2024-07-22 07:48] LABS: Blood Urea Nitrogen 39 mg/dl (7-17); Calcium 9.3 mg/dl (8.4-10.2); Carbon Dioxide 29 mmol/L (22-30); Chloride 99 mmol/L (98-107); Estimated Creatinine Clearance 35 ml/min; Glucose 105 mg/dl (70-99); Potassium 4.2 mmol/L (3.5-5.1); Sodium 135 mmol/L (135-145); eGFR 55.21
[2024-07-22] MEDS: ZESTRIL 10 MG PO (09:31)
[2024-07-22] MEDS: ABILIFY 1 MG PO (09:31)
[2024-07-22] MEDS: NORVASC 10 MG PO (09:32)
[2024-07-22] MEDS: VITAMIN B-12 1000 MCG PO (09:32)
[2024-07-22] MEDS: HEPARIN 5000 UNITS SC (09:32)
[2024-07-22] MEDS: VITAMIN D3 (cholecalciferol) 50 MCG PO (09:32)
--- NOTE | 2024-07-22 10:11 | CM ---
Addendum entered by Ciara Dumont 07/22/24 13:12:
Son updated re d/c and will be here around 4:30 pm.
Addendum entered by Ciara Dumont 07/22/24 12:39:
Patient agreeable to [facility].
IMM completed.
Patient will need RW prior to d/c, MD to send script.
Plan: home with [facility] and RW
Addendum entered by Ciara Dumont 07/22/24 11:27:
Spoke with daughter Linda who stated she is the medical POA, she is currently in [facility]. Her Brother can be contacted.
Linda is agreeable to home with [facility] if PT recommends home with home care.
Linda will also be looking into private care and possibly PC if needed in the future.
CM will provide private caregiver list. Daughter looking at [facility].
Addendum entered by Ciara Dumont 07/22/24 11:01:
Left VM for daughter Linda, await TCB.
Await updated PT recommendations.
Original Note:
Spoke with patient bedside.
Patient agreeable to home health, chose [facility].
[facility] Liaison updated.
Plan: home with [facility]N.
--- NOTE | 2024-07-22 10:59 | VNURNOTE ---
Home Health Liaison met with patient at bedside to discuss [facility] nurse/therapy, visits, schedule and homebound status. Patient is agreeable and understands that visits at home will be 2-3 x per week to assess and teach medical management. Patient is
aware that [facility] will contact them for start of care in 1-2 days after discharge from . [facility] referral completed in [facility].
--- NOTE | 2024-07-22 11:48 | W.PN.NEPH.PH ---
Today's Communication / Plan
-
Continue fluid restriction/otherwise okay for discharge from a renal standpoint
Assessment/Plan
-
Impression:
Euvolemic hyponatremia (129)
Chronic hyponatremia
Dyslipidemia
Anxiety and depression
Presentation with weakness and fatigue
Enterococcus UTI
History of orthostatic hypotension
Plan:
Euvolemic hyponatremia-sodium stable normalized to 135 with fluid restriction
-Urine osmolality of 150 is not consistent with significant SIADH
-Urine sodium of 28: unsure of significance
-Abilify (second generation antipsychotics )has rarely been associated with hyponatremia but there are case reports
-Maintain fluid restriction at 48 oz
-Thyroid rate checked tests are within normal limits, levothyroxine discontinued a couple weeks prior
orthostatic vitals noted, permissive HTN upto 150s is ok , cortisol fine
maintain Amlodipine and lisinopril (blood pressure improved)( these were both added this admission)
-
-
Date of Service: July 22, 2024
CC / HPI / ROS
-
Chief Complaint:
Hyponatremia
History of Present Illness:
Sodium within normal limits
Blood pressure stable on lisinopril and amlodipine
Review of Systems:
no cp or sob
no dizziness
Anxiety persist
Labs
-
Labs:
WBC 7.5 10^3/uL (4.8-10.8) 07/22/24 06:51
RBC 5.21 10^6/uL (4.20-5.40) 07/22/24 06:51
Hgb 15.5 g/dL (12.0-16.0) 07/22/24 06:51
Hct 46.2 % (37.0-47.0) 07/22/24 06:51
Plt Count 289 10^3/uL (130-400) 07/22/24 06:51
Sodium 135 mmol/L (135-145) 07/22/24 06:51
Potassium 4.2 mmol/L (3.5-5.1) 07/22/24 06:51
Chloride 99 mmol/L (98-107) 07/22/24 06:51
Carbon Dioxide 29 mmol/L (22-30) 07/22/24 06:51
BUN 39 mg/dl (7-17) H 07/22/24 06:51
Creatinine 1.0 mg/dL (0.6-1.0) 07/22/24 06:51
eGFR 55.21 07/22/24 06:51
Glucose 105 mg/dl (70-99) H 07/22/24 06:51
Calcium 9.3 mg/dl (8.4-10.2) 07/22/24 06:51
Albumin 4.1 g/dl (3.5-5.0) 07/18/24 08:07
Physical Exam
-
Vital Signs:
Vital Signs
Temp Pulse Resp BP Pulse Ox
97.4 F 86 18 143/77 97
07/22/24 07:00 07/22/24 07:00 07/22/24 07:00 07/22/24 07:00 07/22/24 07:00
Cardiovascular:: Regular rate and rhythm
Respiratory:: Bilateral: CTA
Lung Excursion:: Normal
Abdomen:: Nontender and Soft
Extremity Edema:: None: Bilateral:
Chase Catheter: No
[2024-07-22 12:02] VITALS: BP 123/79; BP 126/60; BP 126/73; PULSE 78; PULSE 89; PULSE 99
[2024-07-22 12:27] VITALS: BP 123/65; BP 141/71; PULSE 76; O2SAT 98
--- NOTE | 2024-07-22 12:42 | W.PN.HOSP.TC ---
Today's Communication/Plan
-
abilify, ativan prn, remeron
fluid restriction 48oz
f/u bmp in 1 week
f/u psych, pcp outpt
Assessment / Plan
Assessment / Plan
Physical Exam
General: No Fever or Chills
HEENT: Normocephalic, Anicteric, PERRLA, [place] Conjunctivae and No Ptosis
Respiratory: Clear; No Wheezes, Rales or Rhonchi
Cardiac: S1/S2
GI: Soft, Non Tender, Non Distended, Normal Bowel Sounds
Rectal: No bleeding
Genito-urinary: No hematuria
Musculoskeletal: No Clubbing, No Cyanosis and No Edema
Skin: Warm and Dry; No Rash or Jaundice
Neuro: Awake, oriented to surroundings, forgetful . She followed commands.
Psych: Calm and seems less depressed (Denies suicidal ideation)
#Generalized weakness secondary to decreased oral intake/weight loss 2 months
Seems related to ongoing depression. Also untreated hypothyroidism
-PT/OT/case management consult for SNF placement
-Dietary consulted
# UTI with enterococcus. Uncomplicated
No leukocytosis, no fevers, no dysuria
s/p one dose of Fosfomycin.
Patient is allergic to penicillin. She is on nortriptyline, to avoid quinolones antibiotics due to QT interval prolongation concern.
No symptoms at this point
#Acute on Chronic Depression with weight loss
Underactive thyroid due to untreated hypothyroidism
-Patient reported feeling depressed lack of activity lack of interest in getting up and doing things getting dressed, patient lives alone independent at [facility]
-Consulted Psychiatry, recommendation: stopped nortriptyline, c/w Abilify, started Remeron, low dose BID Xanax prn.
-Continue Abilify 1 mg p.o. daily. Was dc but nursing staff reported that daughter was concerned about it, she is already on low dose, we can resume
#Acute on chronic hyponatremia
low urine Osmol, low urine sodium, low serum osmol, normal random cortisol.
NA corrected from 129 to 132 over normal saline challenge. Seems consistent with SIADH or Reset Osmostat, low Fe urate , likely reset Osmostat situation, c/w fluid restriction, encourage protein intake.
-TSH low with normal free T4
- Consulted nephrology, input appreciated
continue fluid restriction 48 oz
# Severe protein caloric malnutrition. Consulted dietitian
# Essential HTN, untreated, new diagnosis
Better controlled now , c/w 10 mg amlodipine and 10 mg Lisinopril.
No chest pain
No headache
Added PRN oral Hydralazine
#Hypothyroidism
-Was on Levothyroxine 50 mcg po daily
known non compliant to medications
TSH > 10 now
Started back on Synthroid. Will give one time dose of IV Synthroid and Increase to 75 mcg.
-f/u [facility] outpt
#Fibromyalgia
Continue vitamin B-12 1000 mcg p.o. daily
#Constipation
-Continue PRN MiraLAX 17 g daily
#HLD
No changes intended. Patient should have regular diet while dealing with poor appetite. per daughter, pt was also told to follow ( healthy diet) which resulted in limited options to the patient, fear of eating with poor nutritional status.
DVT prophylaxis
Subcu heparin
DNR
More than 30 minutes spent in discharge including
Final examination of the patient
Summarizing hospital stay
Instructions for continuing care to all relevant caregivers
Preparation of discharge records, prescriptions, and referral forms
Total time spent (58 in minutes):
Anticipated Discharge: Today
Subjective/Interval History
-
Date of Service: July 22, 2024
No acute events overnight
Objective Data
-
Labs:
Laboratory Results
07/22/24
06:51
WBC 7.5
Hgb 15.5
Hct 46.2
Plt Count 289
Sodium 135
Potassium 4.2
Chloride 99
Carbon Dioxide 29
BUN 39 H
Creatinine 1.0
Glucose 105 H
Calcium 9.3
Vital Signs:
Vital Signs
Temp Pulse Resp BP Pulse Ox
97.4 F 86 18 143/77 97
07/22/24 07:00 07/22/24 07:00 07/22/24 07:00 07/22/24 07:00 07/22/24 07:00
I&O
07/21/24 07/22/24 07/23/24
06:59 06:59 06:59
Intake Total 480 / 480 1080 / 1080
Balance 480 / 480 1080 / 1080
Review of Systems
-
History Source: Patient
All other systems: Not reviewed unless documented
Data Reviewed
-
Diagnostic Radiology: Report Reviewed by me
Labs: Labs Reviewed by me
--- NOTE | 2024-07-22 13:00 | W.DS.TRANS ---
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
-
Discharge Instructions:
Discharge Diagnosis/Procedures Generalized weakness secondary to decreased oral
intake/weight loss 2 months
UTI with enterococcus. Uncomplicated
Acute on Chronic Depression with weight loss
Diet Low Cholesterol,Low Fat,Restrict fluids to 48 oz
Activity As tolerated
Blood Work cbc and bmp in 3-5 days; f/u thyroid panel in 4-
6 weeks
Instructions:
Stand-Alone Forms:
Changes to Home Medications: Yes
Discharge Medications:
DC Medications w/original date entered in [employer]
aripiprazole 2 mg tablet 1 mg PO DAILY Mental Health/Anxiety 09/14/21
biotin 5,000 mcg disintegrating tablet 5,000 mcg PO DAILY Supplement 04/07/22
cyanocobalamin (vitamin B-12) 1,000 mcg tablet (Vitamin B-12) 1,000 mcg PO DAILY Supplement 04/07/22
cholecalciferol (vitamin D3) 50 mcg (2,000 unit) tablet (Vitamin D3) 50 mcg PO DAILY Supplement 04/30/24
polyethylene glycol 3350 17 gram oral powder packet (Miralax) 17 g PO DAILYPRN PRN constipation 04/30/24
simvastatin 10 mg tablet 10 mg PO QPM High Cholesterol 04/30/24
alprazolam 0.25 mg tablet 0.125 mg (1/2 x 0.25 mg) PO Q8HPRN PRN anxiety 3 days #4 tabs 07/22/24
amlodipine 10 mg tablet 10 mg PO DAILY 30 days #30 tabs 07/22/24
levothyroxine 75 mcg tablet 75 mcg PO DAILY @ 0600 30 days #30 tabs 07/22/24
lisinopril 10 mg tablet 10 mg PO DAILY 30 days #30 tabs 07/22/24
miconazole nitrate 2 % topical powder (Miconazorb AF) 1 applic topical BID #85 grams 07/22/24
mirtazapine 15 mg tablet 15 mg PO HS 30 days #30 tabs 07/22/24
Home Medication Changes
alprazolam 0.25 mg tablet 0.125 mg (1/2 x 0.25 mg) PO Q8HPRN PRN anxiety 3 days #4 tabs 07/22/24
amlodipine 10 mg tablet 10 mg PO DAILY 30 days #30 tabs 07/22/24
levothyroxine 75 mcg tablet 75 mcg PO DAILY @ 0600 30 days #30 tabs 07/22/24
lisinopril 10 mg tablet 10 mg PO DAILY 30 days #30 tabs 07/22/24
miconazole nitrate 2 % topical powder (Miconazorb AF) 1 applic topical BID #85 grams 07/22/24
mirtazapine 15 mg tablet 15 mg PO HS 30 days #30 tabs 07/22/24
Pending Results: No
[2024-07-22 15:25] VITALS: BP 145/83
[2024-07-22] MEDS: DESENEX/MITRAZOL/ZEASORB 1 APPLIC TOPICAL (17:00)
== END 2024-07-22 17:56 | disposition home health service (06) | DRG 643 ==
LOC: 4 WEST ACU 06:52
PROVIDERS: Clinical Nurse Specialist Family Health; Internal Medicine; ADMITTING PHYSICIAN Internal Medicine; ATTENDING PHYSICIAN Internal Medicine; CONSULT PHYSICIAN Psychiatry & Neurology Psychiatry; CONSULT PHYSICIAN Specialist; EMERGENCY PHYSICIAN Student in an Organized Health Care Education/Training Program
DX: E22.2 Syndrome of inappropriate secretion of antidiuretic hormone (principal); E43 Unspecified severe protein-calorie malnutrition; N39.0 Urinary tract infection, site not specified; Z68.1 Body mass index [BMI] 19.9 or less, adult; Z66 Do not resuscitate; F32.A Depression, unspecified; I95.1 Orthostatic hypotension; M79.7 Fibromyalgia; I35.1 Nonrheumatic aortic (valve) insufficiency; F41.9 Anxiety disorder, unspecified; E03.9 Hypothyroidism, unspecified; B95.2 Enterococcus as the cause of diseases classified elsewhere; R62.7 Adult failure to thrive; E78.00 Pure hypercholesterolemia, unspecified; K59.00 Constipation, unspecified; Z79.899 Other long term (current) drug therapy; Z88.0 Allergy status to penicillin; Z88.1 Allergy status to other antibiotic agents; Z88.2 Allergy status to sulfonamides; Z88.3 Allergy status to other anti-infective agents
CPT/HCPCS: 71046; 80048; 80053; 80335; 81003; 81015; 82533; 82607; 83930; 83935; 84300; 84439; 84443; 84550; 85025; 85027; 87070; 87077; 87086; 87186; 93005; 97116; 97166; 97530; 99285

== ENCOUNTER 2024-07-23 16:34 | Observation (INO) | payer MEDICARE, OTHER, SELFPAY ==
[2024-07-23] VITALS (13 sets, daily range): BP systolic 102–150; BP diastolic 60–83; PULSE 93; O2SAT 98; BMI 20.7; BMI 18.9
[2024-07-23 10:45] LABS: % Basophils 0.2 % (0-2); % Immature Granulocytes 0.4 % (0-0.5); % Lymphocytes 12.3 % (20.5-51.1); % Monocytes 9.8 % (1.7-9.3); % Neutrophils 77.3 % (42.2-75.2); Absolute Lymphocytes 1.2 10^3/uL (1.2-3.4); Absolute Neutrophils 7.6 10^3/uL (1.4-6.5); Hematocrit 45.6 % (37.0-47.0); Hemoglobin 15.5 g/dL (12.0-16.0); Mean Corpuscular Hgb 30.1 pg (27.0-31.0); Mean Corpuscular Volume 88.5 fL (81.0-99.0); Mean Platelet Volume 9.1 fL (7.4-10.4); Nucleated Red Blood Cells % 0 %; Platelet Count 273 10^3/uL (130-400); Red Blood Cell Count 5.15 10^6/uL (4.20-5.40); Red Cell Dist. Width 13.9 % (11.5-14.5); White Blood Cell Count 9.8 10^3/uL (4.8-10.8)
[2024-07-23 10:58] LABS: ALT (SGPT) 35 U/L (0-35); AST (SGOT) 40 U/L (14-36); Albumin 3.7 g/dl (3.5-5.0); Alkaline Phosphatase 75 U/L (38-126); Blood Urea Nitrogen 49 mg/dl (7-17); Calcium 10.1 mg/dl (8.4-10.2); Carbon Dioxide 27 mmol/L (22-30); Chloride 103 mmol/L (98-107); Creatine Phosphokinase 84 U/L (30-135); Estimated Creatinine Clearance 35 ml/min; Glucose 120 mg/dl (70-99); Lipase 424 U/L (23-300); Potassium 4.8 mmol/L (3.5-5.1); Sodium 138 mmol/L (135-145); Total Bilirubin 0.6 mg/dl (0.2-1.3); eGFR 49.24
--- NOTE | 2024-07-23 11:15 | ED.GENMED ---
History of Present Illness
General
Chief Complaint: Weakness
Source: patient
Exam Limitations: none
Time Seen by Provider: 07/23/24 09:51
History of Present Illness
History of Present Illness:
84-year-old female presents via EMS from independent living. She was on the floor all night. She was trying to clean up the floor got down on the floor and was unable to get up. She notes no significant injury from this episode. She notes
generalized weakness. You are admitted to this hospital. She had a urinary tract infection. No other complaints at this time. She denies chest pain or shortness of breath
Past History
Past History
ED Past Medical History: Hypercholesterolemia, Hypothyroidism, Psychiatric (Depression) and Other (Fibromyalgia)
ED Past Surgical History: None
Social History
Tobacco: Non-smoker
Alcohol: None
Drug: None
Personal:
Living: alone
Employment: Retired
Phy Exam
Physical Exam
Physical Exam:
General: Well-appearing female no acute respiratory distress
HEENT: Normocephalic atraumatic
Heart: Regular rate and rhythm no murmur
Lungs: Clear no wheeze
Abdomen is soft nontender nondistended
Neurologic exam: Alert oriented to person and place no facial asymmetry good muscle tone no asymmetric deficit
Skin is warm no
Course
Orders/Labs/Results
Orders:
Orders
07/23/24
Electrocardiogram (*1) Stat
Reason for Study: Chest Pain
Comment: DONE
07/23/24 10:01
CT Head W/o Iv Contrast Urgent
Comment:
Reason For Exam: fall
CR Chest - 2 Views Urgent
Comment:
Reason For Exam: weakness
07/23/24 10:21
CPK [Creatine Phosphokinase] Urgent
Complete Blood Count/With Diff Urgent
Comprehensive Metabolic Panel Urgent
Lipase Urgent
Urinalysis Reflex To Culture Urgent
Date Specimen was Collected: 07/23/24
Time Specimen was Collected: 10:12
Urine Microscopic Reflex Cult Urgent
Urine Culture Urgent
RODNEY Source: U
Specimen Description:
Date Specimen was Collected: 07/23/24
Time Specimen was Collected: 10:12
07/23/24 13:04
Case Management Consult ONCE
Case Management Consult: Discharge Planning
PT Consult [Pt Eval And Treat] Urgent
Activity Level: Ambulate
Abnormal Lab Results
07/23/24
10:21
Absolute Neuts (auto) 7.6 H 10^3/uL
(1.4-6.5)
Absolute Monos (auto) 1.0 H 10^3/uL
(0.1-0.6)
Neutrophils % 77.3 H %
(42.2-75.2)
Lymphocytes % 12.3 L %
(20.5-51.1)
Monocytes % 9.8 H %
(1.7-9.3)
BUN 49 H mg/dl
(7-17)
Creatinine 1.1 H mg/dL
(0.6-1.0)
Glucose 120 H mg/dl
(70-99)
AST 40 H U/L
(14-36)
Total Protein 6.0 L g/dl
(6.3-8.2)
Lipase 424 H U/L
(23-300)
Urine Ketones 1+ A
(Negative)
Ur Occult Blood Reflex 1+ A
(Negative)
Leukocyte Esterase Rfl 2+ A
(Negative)
Urine RBC 3-6 A /HPF
(0-2)
Urine WBC (Reflex) 21-25 A /HPF
(0-5)
Urine Glucose 3+ A
(Negative)
Urine Albumin (Reflex) 2+ A
(Neg - Trace)
07/23/24 10:21
07/23/24 10:21
Vital Signs
Initial and Last Documented VS:
Initial Vital Signs
Temp Pulse Resp BP Pulse Ox
97.9 F 87 18 124/64 100
07/23/24 10:06 07/23/24 10:06 07/23/24 10:06 07/23/24 10:06 07/23/24 10:06
Last Documented Vital Signs
Temp Pulse Resp BP Pulse Ox
97.9 F 88 15 139/69 98
07/23/24 10:06 07/23/24 15:00 07/23/24 15:00 07/23/24 15:00 07/23/24 15:00
MDM/Problems Addressed
Differential Diagnosis Includes:
Weakness. No obvious injury from fall will order CT of head check urine chest x-ray and labs.
*Critical Care Note
Total Time (30-74mins, 75-104mins- exclusive of procedures): Not Applicable
Update Note
Update Note:
Patient reevaluated still seems somewhat weak. CT head negative chest x-ray clear. Labs reviewed without significant finding. Will consult physical therapy and case management. She is currently in independent living at [facility]. Her daughter
was investigating potential options for higher level of care at [facility].
PT saw patient and recommended SNF. Case management involved unable to place patient from the emergency room. Will keep in hospital overnight for
Further work with physical therapy and potential placement
ED Attending Note
-
Portions of this chart may have been created with voice recognition software.� Occasional wrong word or��sound alike� substitutions may have occurred due to the inherent limitations of voice recognition software.
Discharge Plan
Departure
Patient Disposition: Admit
Date of Disposition: 07/23/24
Time of Disposition: 15:45
Presentation/result/management discussed w/ accepting MD/DO: Hospitalist
Patient with high blood pressure during this ER visit?: No
Discharge Problem:
Weakness
Prescriptions:
No Action
aripiprazole 2 MG tablet
1 mg PO DAILY
cyanocobalamin (vitamin B-12) [Vitamin B-12] 1,000 mcg Tablet
1,000 mcg PO DAILY
biotin 5,000 mcg Tablet,Disintegrating
5,000 mcg PO DAILY
polyethylene glycol 3350 [Miralax] 17 gram Powder In Packet
17 g PO DAILYPRN PRN (Reason: constipation)
simvastatin 10 mg Tablet
10 mg PO QPM
cholecalciferol (vitamin D3) [Vitamin D3] 50 mcg (2,000 unit) Tablet
50 mcg PO DAILY
miconazole nitrate [Miconazorb AF] 2 % Powder
1 applic topical BID Qty: 85 0RF
levothyroxine 75 mcg Tablet
75 mcg PO DAILY @ 0600 30 Days Qty: 30 0RF
alprazolam 0.25 mg Tablet
0.125 mg PO Q8HPRN PRN (Reason: anxiety) 3 Days Qty: 4 0RF
Rx Instructions:
for 3 days
amlodipine 10 mg Tablet
10 mg PO DAILY 30 Days Qty: 30 0RF
lisinopril 10 mg Tablet
10 mg PO DAILY 30 Days Qty: 30 0RF
mirtazapine 15 mg Tablet
15 mg PO HS 30 Days Qty: 30 0RF
Referrals:
UNKNOWN - PT NOT,INTERVIEWE [Family Provider] -
Interventions
Interventions:
*Risk Screen - Suicide Last Done: 07/23/24 10:09
*Neglect/Abuse Screening Last Done: 07/23/24 10:09
ED- Fall Risk Assessment Last Done: 07/23/24 10:10
*ED COVID-19 Vaccine History Last Done: 07/23/24 10:10
ED- Cardiac Assessment Last Done: 07/23/24 10:11
ED- Neurological Assessment Last Done: 07/23/24 10:10
ED- Pulmonary Assessment Last Done: 07/23/24 10:11
Discharge Date and Time
Print Language: OMANI
[2024-07-23 11:18] LABS: Urine Albumin 2+ (Neg - Trace); Urine Bilirubin Negative (Negative); Urine Character Slightly Cloudy (Clear); Urine Color Yellow; Urine Glucose 3+ (Negative); Urine Ketone 1+ (Negative); Urine Leukocyte 2+ (Negative); Urine Nitrite Negative (Negative); Urine Occult Blood 1+ (Negative); Urine Specific Gravity 1.025 (<1.030); Urine Urobilinogen Negative (Neg - 1+)
[2024-07-23 12:18] LABS: Urine Amorphous Seen
[2024-07-23 12:20] LABS: Urine Hyaline Cast 0-2 /LPF (0-2)
[2024-07-23 12:21] LABS: Urine White Cell 21-25 /HPF (0-5)
--- NOTE | 2024-07-23 14:46 | CM ---
Addendum entered by Marine Stahl 07/23/24 15:40:
Call with mineshr/Linda who is POA and currently out of state
She notes plan for move to [facility] of [facility] soon
Requesting SNF to be arranged [facility] as pt would be home without support and family not immediately available to stay with her
Concerned that she would be a fall risk and not safe alone
Discussion with [facility]- anticipate admission tomorrow, they will need to review clinicals with their therapy team to make sure she has skillable need
Dtr requesting all dc planning through her and she is agreeable to WC van for transport to [facility]
Discharge Disposition- anticipate [facility] via WC van
Original Note:
ED CM consult for dc planning
Pt resides at [facility] [place] alone
She was admitted to from 07/16-07/22 and dc home yesterday with new WW and VN, service not started
Pt noted if she needs SNF, [facility] would be first choice
PT eval with VN recs
VM left with mineshr/Linda per pt request
Call with son- he will speak with his sister
Per [facility] admissions, bed would likely be available tomorrow if needed
Referral sent to [facility]
Awaiting call back from family to determine if plan for home with VN and add'l support or SNF
--- NOTE | 2024-07-23 15:49 | HPS.HSE ---
Family Physician
-
Family Physician: INTERVIEWE UNKNOWN - PT NOT
Chief Complaint
-
diarrhea
History of Present Illness
84-year-old female with past medical history for UTI, anxiety, depression, hypertension, hypothyroidism, fibromyalgia, hyperlipidemia presented to us with generalized weakness. Patient had an episode of diarrhea last night. patient was not able to
get to the toilet and made an mess on the floor. she sat down to clean the floor and was not able to get herself up. she was on the floor last night. she crawled to the door today morning and got the help. she vomited once last night. stated some
abdominal tenderness. denied THAYER, dizzy or syncope. denied fever, chills, chest pain, sob.denied dysuria or hematuria.
head CT and chest x ray with no acute findings. admitting for further management of weakness.
Medical History
Past Medical History
Past Medical History: Reports Other
Additional Past Medical History:
Hypothyroidism
Hyperlipidemia
Vertigo
Herpes
Fibromyalgia depression tremor
Meniscus tear tinnitus
Orthostatic hypotension
Past Surgical History: Reports None
Social History
Tobacco: Non-smoker
Alcohol: None
Drug: None
Living: Alone
Family History
Family History: Not pertinent
Allergies / Home Medications
Allergies reflects when Allergies were last updated in [employer].
Home Medications with original date entered in [employer]
Allergy/Medication List:
Allergies
Allergy/AdvReac Type Severity Reaction Status Date / Time
amoxicillin [From Augmentin] Allergy Hives Verified 07/23/24 12:55
bacitracin Allergy Rash Verified 07/23/24 12:55
[From Neosporin
([id number])]
clavulanic acid Allergy Hives Verified 07/23/24 12:55
[From Augmentin]
neomycin Allergy Rash Verified 07/23/24 12:55
[From Neosporin
([id number])]
polymyxin B Allergy Rash Verified 07/23/24 12:55
[From Neosporin
([id number])]
sulfamethoxazole Allergy Rash Verified 07/23/24 12:55
[From Bactrim]
Tetracyclines Allergy Rash Verified 07/23/24 12:55
trimethoprim [From Bactrim] Allergy Rash Verified 07/23/24 12:55
Home Medications
aripiprazole 2 mg tablet 1 mg PO DAILY Mental Health/Anxiety 09/14/21
biotin 5,000 mcg disintegrating tablet 5,000 mcg PO DAILY Supplement 04/07/22
cyanocobalamin (vitamin B-12) 1,000 mcg tablet (Vitamin B-12) 1,000 mcg PO DAILY Supplement 04/07/22
cholecalciferol (vitamin D3) 50 mcg (2,000 unit) tablet (Vitamin D3) 50 mcg PO DAILY Supplement 04/30/24
polyethylene glycol 3350 17 gram oral powder packet (Miralax) 17 g PO DAILYPRN PRN constipation 04/30/24
simvastatin 10 mg tablet 10 mg PO QPM High Cholesterol 04/30/24
alprazolam 0.25 mg tablet 0.125 mg (1/2 x 0.25 mg) PO Q8HPRN PRN anxiety 3 days #4 tabs 07/22/24
amlodipine 10 mg tablet 10 mg PO DAILY 30 days #30 tabs 07/22/24
lisinopril 10 mg tablet 10 mg PO DAILY 30 days #30 tabs 07/22/24
miconazole nitrate 2 % topical powder (Miconazorb AF) 1 applic topical BID #85 grams 07/22/24
mirtazapine 15 mg tablet 15 mg PO HS 30 days #30 tabs 07/22/24
levothyroxine 75 mcg tablet 75 mcg PO DAILY@0600 07/23/24
Review of Systems
-
Constitutional: Reports No Symptoms
EENT: Reports No Symptoms
Respiratory: Reports No Symptoms
Cardiac: Reports No Symptoms
Abdomen/GI: Reports Vomiting and Diarrhea
: Reports No Symptoms
Musculoskeletal: Reports No Symptoms
Skin: Reports No Symptoms
Neurological: Reports Weakness
Endocrine: Reports No Symptoms
Hematologic/Lymphatic: Reports No Symptoms
Psych: Reports No Symptoms
Physical Exam
Vital Signs
Vital Signs
Temp Pulse Resp BP Pulse Ox
97.9 F 88 15 139/69 98
07/23/24 10:06 07/23/24 15:00 07/23/24 15:00 07/23/24 15:00 07/23/24 15:00
Physical Exam
General: Well Developed, Well Nourished and No Apparent Distress
HEENT: NormoCephalic, Moist mucous membranes and Atraumatic
Respiratory: Clear
Cardiac: S1/S2 and Regular Rhythm; No Murmur or Rub
GI: Soft, Non Tender, Non Distended and Normal Bowel Sounds; No Organomegaly
Rectal: Deferred by Provider
Musculoskeletal: No Clubbing, No Cyanosis and No Edema
Skin: No Rash
Neuro: AO x 3 and Nonfocal/grossly intact
Psych: Calm
Laboratory Results
-
07/23/24 10:21
07/23/24 10:21
Laboratory Results
Total Bilirubin 0.6 mg/dl (0.2-1.3) 07/23/24 10:21
AST 40 U/L (14-36) H 07/23/24 10:21
ALT 35 U/L (0-35) 07/23/24 10:21
Alkaline Phosphatase 75 U/L (38-126) 07/23/24 10:21
Lipase 424 U/L (23-300) H 07/23/24 10:21
Data Reviewed
-
Lab Data: Labs Reviewed by me
Impression/Plan
-
# Vomiting/diarrhea likely viral
-AST 40, lipase 424
-obtain stool cultures, if continued to have diarrhea
#generalized weakness.
-CT with impression of no acute intracranial abnormalities.
There is moderate diffuse cortical atrophy with moderate nonspecific white matter changes as described above.
Acute bilateral maxillary sinusitis
-Chest x-ray with no active cardiac pulmonary disease
-PT/OT consulted
# Severe protein caloric malnutrition
# Essential HTN
-Norvasc continued with hold parameters
-hold lisinopril due to ZAINAB
#Hypothyroidism
-Levothyroxine continued
#Fibromyalgia
#HLD
-Statin continued
# Recent UTI with enterococcus
-No leukocytosis, no fevers, no dysuria
-s/p one dose of Fosfomycin recent admission
# Anxiety/depression
-Alprazolam, Abilify, mirtazapine continued
DVT prophylaxis
Subcu heparin
DNR
--- NOTE | 2024-07-23 16:53 | W.PN.UPDATE ---
Update Note
Progress Note Update
This is an addendum to the H&P written by Lou on 07/23/2024.� Patient seen and examined independently with CHEMOTHERAPIST.
84-year-old female past medical history of depression, chronic hyponatremia, hypertension, hypothyroidism, fibromyalgia, constipation, hyperlipidemia, presenting with inability to get up off the ground.� Single episode of vomiting and diarrhea.� No
further symptoms at this time.
Discharged yesterday after being admitted for generalized weakness secondary to decreased p.o. intake from depression.� Also with UTI secondary to Enterococcus treated with single dose of fosfomycin.� Psychiatry adjusted her psychiatric
medications.� Hyponatremia treated with fluid restriction and IV fluids.
CT head and chest x-ray negative.
She went back to independent living.� Case management consulted for placement.
--- NOTE | 2024-07-23 19:22 | PTCARENOTE ---
Pt received from ED via stretcher at 1800. Pt slid onto bed with aid of sliding sheet. Pt tolerated well. Personal items and call light within reach. Pt oriented to staff, environment and call light system.
[2024-07-23] MEDS: LIPITOR 10 MG PO (21:14)
[2024-07-23] MEDS: DESENEX/MITRAZOL/ZEASORB 1 APPLIC TOPICAL (21:15)
[2024-07-23] MEDS: REMERON 15 MG PO (21:15)
[2024-07-23] MEDS: HEPARIN 5000 UNITS SC (21:16)
[2024-07-24] MEDS: SYNTHROID 75 MCG PO (05:05)
[2024-07-24 06:54] LABS: ALT (SGPT) 32 U/L (0-35); AST (SGOT) 39 U/L (14-36); Albumin 3.4 g/dl (3.5-5.0); Alkaline Phosphatase 66 U/L (38-126); Blood Urea Nitrogen 51 mg/dl (7-17); Calcium 9.4 mg/dl (8.4-10.2); Carbon Dioxide 27 mmol/L (22-30); Chloride 102 mmol/L (98-107); Direct Bilirubin 0.1 mg/dl (0.0-0.4); Estimated Creatinine Clearance 39 ml/min; Glucose 103 mg/dl (70-99); Lipase 101 U/L (23-300); Potassium 4.7 mmol/L (3.5-5.1); Sodium 133 mmol/L (135-145); Total Bilirubin 0.8 mg/dl (0.2-1.3); Total Protein 5.7 g/dl (6.3-8.2); eGFR > 60.00
[2024-07-24 07:50] VITALS: BP 136/72
[2024-07-24] MEDS: HEPARIN 5000 UNITS SC ×2 (08:10→19:50)
[2024-07-24] MEDS: ABILIFY 1 MG PO (08:11)
[2024-07-24] MEDS: NORVASC 10 MG PO (08:11)
[2024-07-24] MEDS: VITAMIN B-12 1000 MCG PO (08:11)
[2024-07-24] MEDS: VITAMIN D3 (cholecalciferol) 50 MCG PO (08:11)
[2024-07-24] MEDS: DESENEX/MITRAZOL/ZEASORB 1 APPLIC TOPICAL ×2 (08:12→19:49)
--- NOTE | 2024-07-24 11:26 | CM ---
poke with Harinder At [facility] pt has a qualifying stay for SNF.
MD indicated not ready for discharge today . Harinder Worrell notified .
Family contact is Leydi.
Anaid
report [phone]
fax [phone]
PLAN To [facility] when medically ready
[2024-07-24] MEDS: LR 1000 IV (13:18)
[2024-07-24 14:03] VITALS: BMI 18.9
[2024-07-24 14:36] VITALS: BP 142/68; PULSE 96; O2SAT 98
[2024-07-24 15:26] VITALS: BP 142/68
--- NOTE | 2024-07-24 15:33 | CS.PSYCHR ---
Consult Summary - Psychiatry
-
Pt is an 84 yo female from [facility], who presented to with generalized weakness. Patient had an episode of diarrhea last night, was not able to get to the toilet and made an mess on the floor. she sat down to clean the
floor and was not able to get herself up. Pt crawled to the door in the morning and got the help. Pt was recently admitted to (07/16 - 07/22/24) for generalized weakness, weight loss. Pt continues to report decreased appetite. She denies any
suicidal ideation. Pt's antidepressant was switched last admission from Nortriptyline to Remeron- started on 07/17/24. Nortriptyline level drawn on 07/16 came back at 68 (therapeutic). Pt relies on dtr and son for assist, states she needs help
organizing/tracking her medications. Dtr is retired and in [place] for a few months.
PMH: hypothyroidism, hyperlipidemia, fibromyalgia, syncope secondary to orthostatic hypotension
Psych Hx: depression in recent years, since her about 4 years ago. No hx of inpatient tx; denies seeing a psychiatrist. Had phone sessions with a therapist in the past. PCP prescribes antidepressant medications
MSE: alert, oriented, calm, cooperative. Speech/thought coherent, goal-directed. Mood dysphoric, mildly anxious, affect congruent. No signs of psychosis. Insight appears fair
Imp: Unspecified depressive d/o; pt denies any SI, does not appear to need inpatient psych tx
Rec: Continue to trial of Remeron 15 mg, rarely but not typically associated with orthostatic hypotension (much less risk than on nortriptyline)
Continue Abilify 1 mg- augmentation for antidepressant. Would consider outpatient therapy; appears psychiatrically stable for discharge when medically cleared
Will follow
--- NOTE | 2024-07-24 15:43 | W.PN.HOSP.TC ---
Today's Communication/Plan
-
lr
psych recs
orthostatics tomorrow
Assessment / Plan
Assessment / Plan
Physical Exam
General: Well Developed, Well Nourished and No Apparent Distress
HEENT: NormoCephalic, Moist mucous membranes and Atraumatic
Respiratory: Clear
Cardiac: S1/S2 and Regular Rhythm; No Murmur or Rub
GI: Soft, Non Tender, Non Distended and Normal Bowel Sounds; No Organomegaly
Rectal: Deferred by Provider
Musculoskeletal: No Clubbing, No Cyanosis and No Edema
Skin: No Rash
Neuro: AO x 3 and Nonfocal/grossly intact
Psych: Calm
# Vomiting/diarrhea likely viral
-AST 40, lipase 424
-obtain stool cultures, if continued to have diarrhea
-supportive care
#generalized weakness.
-CT with impression of no acute intracranial abnormalities.
There is moderate diffuse cortical atrophy with moderate nonspecific white matter changes as described above.
Acute bilateral maxillary sinusitis
-Chest x-ray with no active cardiac pulmonary disease
-PT/OT consulted
-has been issue on prior admit - going to SNF
-orthostatics prior to dc - has possible hx of this
# Severe protein caloric malnutrition
# Essential HTN
-Norvasc continued with hold parameters
-hold lisinopril due to BRYCE
#Bryce
-resolved
-cont ivf
#Hyponatremia
-monitor
#Hypothyroidism
-Levothyroxine continued
#Fibromyalgia
#HLD
-Statin continued
# Recent UTI with enterococcus
-No leukocytosis, no fevers, no dysuria
-s/p one dose of Fosfomycin recent admission
# Anxiety/depression
-Alprazolam, Abilify, mirtazapine continued
-psych consult for questioning remeron with hx of orthostatic hypotension
DVT prophylaxis
Subcu heparin
DNR
Anticipated Discharge: Within 24 hours
Subjective/Interval History
-
Date of Service: July 24, 2024
diarrhea improved, no issues here
Objective Data
-
Labs:
Laboratory Results
07/24/24
06:13
Sodium 133 L
Potassium 4.7
Chloride 102
Carbon Dioxide 27
BUN 51 H
Creatinine 0.9
Glucose 103 H
Calcium 9.4
Total Bilirubin 0.8
AST 39 H
ALT 32
Alkaline Phosphatase 66
Vital Signs:
Vital Signs
Temp Pulse Resp BP Pulse Ox
97.9 F 96 16 142/68 97
07/24/24 15:26 07/24/24 15:26 07/24/24 15:26 07/24/24 15:26 07/24/24 15:26
Review of Systems
-
History Source: Patient
All other systems: Not reviewed unless documented
Data Reviewed
-
Diagnostic Radiology: Report Reviewed by me
Labs: Labs Reviewed by me
[2024-07-24] MEDS: LIPITOR 10 MG PO (17:36)
[2024-07-24 21:02] VITALS: BP 146/78
[2024-07-24] MEDS: REMERON 15 MG PO (21:02)
[2024-07-24 23:05] VITALS: BP 147/86
[2024-07-25] MEDS: LR 1000 IV ×2 (02:19→15:41)
[2024-07-25] MEDS: SYNTHROID 75 MCG PO (05:06)
[2024-07-25 06:17] LABS: Hematocrit 40.7 % (37.0-47.0); Hemoglobin 13.9 g/dL (12.0-16.0); Mean Corp Hgb Conc. 34.2 g/dL (33.0-37.0); Mean Corpuscular Hgb 30.4 pg (27.0-31.0); Mean Corpuscular Volume 89.1 fL (81.0-99.0); Mean Platelet Volume 9.5 fL (7.4-10.4); Platelet Count 273 10^3/uL (130-400); Red Blood Cell Count 4.57 10^6/uL (4.20-5.40); Red Cell Dist. Width 13.9 % (11.5-14.5); White Blood Cell Count 7.2 10^3/uL (4.8-10.8)
[2024-07-25 06:52] LABS: ALT (SGPT) 29 U/L (0-35); AST (SGOT) 34 U/L (14-36); Albumin 3.1 g/dl (3.5-5.0); Alkaline Phosphatase 70 U/L (38-126); Blood Urea Nitrogen 30 mg/dl (7-17); Calcium 8.7 mg/dl (8.4-10.2); Carbon Dioxide 27 mmol/L (22-30); Chloride 104 mmol/L (98-107); Estimated Creatinine Clearance 59 ml/min; Glucose 95 mg/dl (70-99); Potassium 4.2 mmol/L (3.5-5.1); Sodium 136 mmol/L (135-145); Total Bilirubin 0.6 mg/dl (0.2-1.3); Total Protein 5.4 g/dl (6.3-8.2); eGFR > 60.00
[2024-07-25 08:06] VITALS: BP 153/72
[2024-07-25] MEDS: VITAMIN B-12 1000 MCG PO (08:38)
[2024-07-25] MEDS: ABILIFY 1 MG PO (08:38)
[2024-07-25] MEDS: HEPARIN 5000 UNITS SC (08:38)
[2024-07-25] MEDS: NORVASC 10 MG PO (08:38)
[2024-07-25] MEDS: VITAMIN D3 (cholecalciferol) 50 MCG PO (08:38)
[2024-07-25] MEDS: DESENEX/MITRAZOL/ZEASORB 1 APPLIC TOPICAL (08:41)
[2024-07-25 09:10] VITALS: BP 135/71; BP 141/84; BP 144/78; PULSE 85; PULSE 98; PULSE 99
--- NOTE | 2024-07-25 11:24 | W.PN.UPDATE ---
Update Note
Progress Note Update
Pt seen, resting upright in bed, status appears unchanged. Pt alert, denies problems on Remeron. States she is able to get up to the bathroom without difficulty, using walker. Affect continues mildly dysphoric and worried/anxious. States she
needs additional help at home, states she has difficulty getting to PCP for appointments, hopes she will be able to see a doctor at her assisted living facility.
Imp: Unspecified depressive d/o
Rec: Continue to trial of Remeron 15 mg, rarely but not typically associated with orthostatic hypotension (much less risk than on nortriptyline- which was stopped during last admission)
Continue Abilify 1 mg- augmentation for antidepressant. Would consider outpatient therapy; appears psychiatrically stable for discharge when medically cleared
Will follow
--- NOTE | 2024-07-25 12:42 | CM ---
Reviewed the chart notes and spoke with the patient's daughter via telephone and patient at the bedside. Patient will be discharged to [facility] today. Patient's daughter requests wheelchair van transportation. Daughter understands this is an
[id number] cost and is agreeable. CM continues to be available to patient/family and is monitoring medical plan for needs at discharge.
Plan: Discharge to [facility]
Call report to: [phone]
Fax report to: [phone]
Transport form on chart.
--- NOTE | 2024-07-25 13:44 | W.PN.HOSP.TC ---
Addendum entered and electronically signed by Saturnino Mark MD 07/25/24 17:19:
[id number]
Original Note:
Today's Communication/Plan
-
hold acei, f/u bmp outpatient for restarting
f/u pcp and psychiatrist
Assessment / Plan
Assessment / Plan
Physical Exam
General: Well Developed, Well Nourished and No Apparent Distress
HEENT: NormoCephalic, Moist mucous membranes and Atraumatic
Respiratory: Clear
Cardiac: S1/S2 and Regular Rhythm; No Murmur or Rub
GI: Soft, Non Tender, Non Distended and Normal Bowel Sounds; No Organomegaly
Rectal: Deferred by Provider
Musculoskeletal: No Clubbing, No Cyanosis and No Edema
Skin: No Rash
Neuro: AO x 3 and Nonfocal/grossly intact
Psych: Calm
# Vomiting/diarrhea likely viral
-resolved
-probably viral
#generalized weakness
-chronic issue - worse with depression and debilitation
-CT with impression of no acute intracranial abnormalities.
There is moderate diffuse cortical atrophy with moderate nonspecific white matter changes as described above.
Chest x-ray with no active cardiac pulmonary disease
-PT/OT consulted
-has been issue on prior admit - going to SNF
-orthostatics negative
# Severe protein caloric malnutrition
# Essential HTN
-Norvasc continued with hold parameters
-hold lisinopril due to BRYCE - can f/u with bmp outpatient and resume
#Bryce
-resolved
-cont ivf
#Hyponatremia
-monitor
#Hypothyroidism
-Levothyroxine continued
#Fibromyalgia
#HLD
-Statin continued
# Recent UTI with enterococcus
-No leukocytosis, no fevers, no dysuria
-s/p one dose of Fosfomycin recent admission
# Anxiety/depression
-Alprazolam, Abilify, mirtazapine continued
-psych consult for questioning remeron with hx of orthostatic hypotension
DVT prophylaxis
Subcu heparin
DNR
More than 30 minutes spent in discharge including
Final examination of the patient
Summarizing hospital stay
Instructions for continuing care to all relevant caregivers
Preparation of discharge records, prescriptions, and referral forms
Total time spent (37 in minutes):
Anticipated Discharge: Today
Subjective/Interval History
-
Date of Service: July 25, 2024
no acute events, orthostatics negative
Objective Data
-
Labs:
Laboratory Results
07/25/24
05:29
WBC 7.2
Hgb 13.9
Hct 40.7
Plt Count 273
Sodium 136
Potassium 4.2
Chloride 104
Carbon Dioxide 27
BUN 30 H
Creatinine 0.6
Glucose 95
Calcium 8.7
Total Bilirubin 0.6
AST 34
ALT 29
Alkaline Phosphatase 70
Vital Signs:
Vital Signs
Temp Pulse Resp BP Pulse Ox
98.5 F 89 16 153/72 96
07/25/24 08:06 07/25/24 08:38 07/25/24 08:06 07/25/24 08:38 07/25/24 08:06
I&O
07/24/24 07/25/24 07/26/24
06:59 06:59 06:59
Intake Total 780 / 780
Balance 780 / 780
Review of Systems
-
History Source: Patient
All other systems: Not reviewed unless documented
Data Reviewed
-
Diagnostic Radiology: Report Reviewed by me
Labs: Labs Reviewed by me
--- NOTE | 2024-07-25 13:50 | W.DS.TRANS ---
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
-
Discharge Instructions:
Discharge Diagnosis/Procedures
# Vomiting/diarrhea likely viral
#generalized weakness.
Diet Low Fat,Low Cholesterol,Restrict fluids to 48 oz
Blood Work cbc and bmp in 1 week with pcp
Instructions:
Stand-Alone Forms:
Changes to Home Medications: Yes
Discharge Medications:
DC Medications w/original date entered in [facility]
aripiprazole 2 mg tablet 1 mg PO DAILY Mental Health/Anxiety 09/14/21
biotin 5,000 mcg disintegrating tablet 5,000 mcg PO DAILY Supplement 04/07/22
cyanocobalamin (vitamin B-12) 1,000 mcg tablet (Vitamin B-12) 1,000 mcg PO DAILY Supplement 04/07/22
cholecalciferol (vitamin D3) 50 mcg (2,000 unit) tablet (Vitamin D3) 50 mcg PO DAILY Supplement 04/30/24
polyethylene glycol 3350 17 gram oral powder packet (Miralax) 17 g PO DAILYPRN PRN constipation 04/30/24
simvastatin 10 mg tablet 10 mg PO QPM High Cholesterol 04/30/24
amlodipine 10 mg tablet 10 mg PO DAILY 30 days #30 tabs 07/22/24
lisinopril 10 mg tablet 10 mg PO DAILY 30 days #30 tabs 07/22/24
miconazole nitrate 2 % topical powder (Miconazorb AF) 1 applic topical BID #85 grams 07/22/24
mirtazapine 15 mg tablet 15 mg PO HS 30 days #30 tabs 07/22/24
levothyroxine 75 mcg tablet 75 mcg PO DAILY@0600 Thyroid 07/23/24
alprazolam 0.25 mg tablet 0.125 mg (1/2 x 0.25 mg) PO Q8HPRN PRN anxiety 3 days #4 tabs 07/25/24
Home Medication Changes
Holding lisinopril 10 mg tablet 10 mg PO DAILY 30 days #30 tabs 07/22/24
Pending Results: No
[2024-07-25 15:29] VITALS: BP 136/82
[2024-07-25] MEDS: LIPITOR 10 MG PO (17:27)
--- NOTE | 2024-07-25 19:15 | PTCARENOTE ---
Patient transported to [facility] via w/c. IV taken out before transport. All belongings taken with patient.
== END 2024-07-25 19:17 ==
LOC: 3 WEST ACU 16:34
PROVIDERS: Physician Assistant; Registered Nurse; ADMITTING PHYSICIAN Hospitalist; ATTENDING PHYSICIAN Internal Medicine; CONSULT PHYSICIAN Psychiatry & Neurology Psychiatry; EMERGENCY PHYSICIAN Emergency Medicine
DX: R19.7 Diarrhea, unspecified (principal); R11.10 Vomiting, unspecified; R53.1 Weakness; F32.A Depression, unspecified; E78.00 Pure hypercholesterolemia, unspecified; M79.7 Fibromyalgia; J01.00 Acute maxillary sinusitis, unspecified; I10 Essential (primary) hypertension; E43 Unspecified severe protein-calorie malnutrition; G31.9 Degenerative disease of nervous system, unspecified; E87.1 Hypo-osmolality and hyponatremia; R10.819 Abdominal tenderness, unspecified site; N17.9 Acute kidney failure, unspecified; I49.8 Other specified cardiac arrhythmias; E03.9 Hypothyroidism, unspecified; R07.9 Chest pain, unspecified; Z79.890 Hormone replacement therapy; Z79.899 Other long term (current) drug therapy; Z87.440 Personal history of urinary (tract) infections; Z88.1 Allergy status to other antibiotic agents; Z88.0 Allergy status to penicillin; Z88.2 Allergy status to sulfonamides; Z68.1 Body mass index [BMI] 19.9 or less, adult; Z60.2 Problems related to living alone; F41.9 Anxiety disorder, unspecified; Z66 Do not resuscitate
CPT/HCPCS: 70450; 71046; 80053; 81003; 81015; 82248; 82550; 83690; 85025; 85027; 87086; 93005; 97116; 97166; 97530; 99285; G0378

== ENCOUNTER → 2024-08-01 11:54 | Outpatient (REF) | payer OTHER, MEDICARE, SELFPAY ==
[2024-08-01 12:52] LABS: % Basophils 0.5 % (0-2); % Eosinophils 3.4 % (0-6); % Immature Granulocytes 0.3 % (0-0.5); % Monocytes 10.6 % (1.7-9.3); % Neutrophils 62.2 % (42.2-75.2); Absolute Eosinophils 0.3 10^3/uL (0-0.7); Absolute Lymphocytes 1.8 10^3/uL (1.2-3.4); Absolute Monocytes 0.8 10^3/uL (0.1-0.6); Absolute Neutrophils 4.9 10^3/uL (1.4-6.5); Hematocrit 41.9 % (37.0-47.0); Hemoglobin 13.8 g/dL (12.0-16.0); Mean Corp Hgb Conc. 32.9 g/dL (33.0-37.0); Mean Corpuscular Hgb 30.3 pg (27.0-31.0); Mean Corpuscular Volume 92.1 fL (81.0-99.0); Mean Platelet Volume 9.8 fL (7.4-10.4); Nucleated Red Blood Cells % 0 %; Platelet Count 328 10^3/uL (130-400); Red Blood Cell Count 4.55 10^6/uL (4.20-5.40); Red Cell Dist. Width 14.4 % (11.5-14.5); White Blood Cell Count 7.8 10^3/uL (4.8-10.8)
[2024-08-01 13:11] LABS: Blood Urea Nitrogen 25 mg/dl (7-17); Calcium 8.8 mg/dl (8.4-10.2); Carbon Dioxide 28 mmol/L (22-30); Chloride 103 mmol/L (98-107); Glucose 91 mg/dl (70-99); Potassium 4.4 mmol/L (3.5-5.1); Sodium 138 mmol/L (135-145); eGFR > 60.00
== END ==
LOC: OLABN 11:54
PROVIDERS: ATTENDING PHYSICIAN Student in an Organized Health Care Education/Training Program
DX: M62.81 Muscle weakness (generalized) (principal)
CPT/HCPCS: 36415; 80048; 85025

== ENCOUNTER → 2024-08-07 10:39 | Outpatient (REF) | payer OTHER, MEDICARE, SELFPAY ==
[2024-08-07 13:03] LABS: % Basophils 0.9 % (0-2); % Eosinophils 2.2 % (0-6); % Immature Granulocytes 0.3 % (0-0.5); % Lymphocytes 27.6 % (20.5-51.1); % Monocytes 10.9 % (1.7-9.3); % Neutrophils 58.1 % (42.2-75.2); Absolute Basophils 0.1 10^3/uL (0-0.2); Absolute Eosinophils 0.1 10^3/uL (0-0.7); Absolute Lymphocytes 1.6 10^3/uL (1.2-3.4); Absolute Monocytes 0.6 10^3/uL (0.1-0.6); Absolute Neutrophils 3.4 10^3/uL (1.4-6.5); Hemoglobin 13.2 g/dL (12.0-16.0); Mean Corp Hgb Conc. 32.2 g/dL (33.0-37.0); Mean Corpuscular Volume 93.2 fL (81.0-99.0); Mean Platelet Volume 9.9 fL (7.4-10.4); Nucleated Red Blood Cells % 0 %; Platelet Count 319 10^3/uL (130-400); Red Cell Dist. Width 14.4 % (11.5-14.5); White Blood Cell Count 5.8 10^3/uL (4.8-10.8)
[2024-08-07 13:04] LABS: ALT (SGPT) 16 U/L (0-35); AST (SGOT) 19 U/L (14-36); Albumin 3.1 g/dl (3.5-5.0); Alkaline Phosphatase 61 U/L (38-126); Blood Urea Nitrogen 34 mg/dl (7-17); Calcium 9.1 mg/dl (8.4-10.2); Carbon Dioxide 29 mmol/L (22-30); Chloride 105 mmol/L (98-107); Glucose 87 mg/dl (70-99); HDL Cholesterol 45 mg/dl; LDL Cholesterol, Calculated 96 mg/dl; Magnesium 2.5 mg/dl (1.6-2.3); Potassium 4.7 mmol/L (3.5-5.1); Sodium 138 mmol/L (135-145); Total Bilirubin 0.5 mg/dl (0.2-1.3); Total Cholesterol 157 mg/dl (50-199); Total Protein 5.3 g/dl (6.3-8.2); Triglyceride 80 mg/dl (10-149); Very Low Density Lipoprotein 16 mg/dl (0-30); eGFR > 60.00
[2024-08-07 13:34] LABS: TSH 0.36 uIU/ml (0.47-4.68)
[2024-08-07 13:53] LABS: Vitamin B12 973 pg/ml (239-931)
[2024-08-11 06:46] LABS: Vitamin B6 Results 28.5 nmol/L (20.0-125.0)
== END ==
LOC: OLABN 10:39
PROVIDERS: ATTENDING PHYSICIAN Student in an Organized Health Care Education/Training Program
DX: E87.1 Hypo-osmolality and hyponatremia (principal); E03.9 Hypothyroidism, unspecified; E43 Unspecified severe protein-calorie malnutrition; Z79.899 Other long term (current) drug therapy
CPT/HCPCS: 36415; 80053; 80061; 82306; 82607; 83735; 84207; 84443; 85025

== ENCOUNTER → 2024-09-25 11:50 | Outpatient (REF) | payer MEDICARE, OTHER, SELFPAY ==
[2024-09-26 12:25] LABS: Urine Albumin Negative (Neg - Trace); Urine Bilirubin Negative (Negative); Urine Character Clear (Clear); Urine Glucose Negative (Negative); Urine Ketone Negative (Negative); Urine Leukocyte Negative (Negative); Urine Nitrite Negative (Negative); Urine Occult Blood Negative (Negative); Urine Urobilinogen Negative (Neg - 1+)
[2024-09-26 12:27] LABS: Urine Color Straw
== END ==
LOC: OLABN 11:50
PROVIDERS: ATTENDING PHYSICIAN Hospitalist
DX: R41.82 Altered mental status, unspecified (principal); E03.9 Hypothyroidism, unspecified
CPT/HCPCS: 81003

== ENCOUNTER → 2024-09-26 11:28 | Outpatient (REF) | payer MEDICARE, OTHER, SELFPAY ==
[2024-09-26 12:11] LABS: Hematocrit 36.7 % (37.0-47.0); Hemoglobin 12.6 g/dL (12.0-16.0); Mean Corp Hgb Conc. 34.3 g/dL (33.0-37.0); Mean Corpuscular Hgb 30.6 pg (27.0-31.0); Mean Corpuscular Volume 89.1 fL (81.0-99.0); Mean Platelet Volume 9.4 fL (7.4-10.4); Platelet Count 298 10^3/uL (130-400); Red Blood Cell Count 4.12 10^6/uL (4.20-5.40); Red Cell Dist. Width 14.4 % (11.5-14.5); White Blood Cell Count 4.9 10^3/uL (4.8-10.8)
[2024-09-26 12:30] LABS: ALT (SGPT) 27 U/L (0-35); AST (SGOT) 26 U/L (14-36); Albumin 3.5 g/dl (3.5-5.0); Alkaline Phosphatase 67 U/L (38-126); Blood Urea Nitrogen 14 mg/dl (7-17); Calcium 8.8 mg/dl (8.4-10.2); Carbon Dioxide 24 mmol/L (22-30); Chloride 102 mmol/L (98-107); Glucose 91 mg/dl (70-99); Potassium 5.1 mmol/L (3.5-5.1); Sodium 132 mmol/L (135-145); Total Bilirubin 0.7 mg/dl (0.2-1.3); Total Protein 5.8 g/dl (6.3-8.2); eGFR > 60.00
== END ==
LOC: OLABMERCHI 11:28
PROVIDERS: ATTENDING PHYSICIAN Hospitalist
DX: R41.82 Altered mental status, unspecified (principal); E03.9 Hypothyroidism, unspecified
CPT/HCPCS: 36415; 80053; 85027

== ENCOUNTER → 2024-10-16 20:00 | Outpatient (REF) | payer MEDICARE, OTHER, SELFPAY ==
[2024-10-17 11:43] LABS: Urine Albumin Negative (Neg - Trace); Urine Bilirubin Negative (Negative); Urine Character Clear (Clear); Urine Color Yellow; Urine Glucose Negative (Negative); Urine Ketone Negative (Negative); Urine Leukocyte 1+ (Negative); Urine Nitrite Negative (Negative); Urine Occult Blood 4+ (Negative); Urine Specific Gravity 1.005 (<1.030); Urine Urobilinogen Negative (Neg - 1+); Urine pH 6.5 (5.0-9.0)
[2024-10-17 13:09] LABS: Urine Bacteria Few (Negative); Urine Red Blood Cell 0-2 /HPF (0-2); Urine Squamous Cell 0-2 /LPF (Few); Urine White Cell 16-20 /HPF (0-5)
== END ==
LOC: OLABMERCHI 20:00
PROVIDERS: ATTENDING PHYSICIAN Hospitalist
DX: R35.0 Frequency of micturition (principal)
CPT/HCPCS: 81003; 81015; 87086

== ENCOUNTER 2024-10-19 19:41 | Inpatient (IN) | payer MEDICARE, OTHER, SELFPAY ==
[2024-10-19 09:36] VITALS: BP 136/74
--- NOTE | 2024-10-19 10:34 | ED.GENMED ---
History of Present Illness
<LUIS Heath - Last Filed: 10/19/24 16:14>
General
Chief Complaint: Fall
Source: patient
Exam Limitations: none
Time Seen by Provider: 10/19/24 10:28
Nursing documentation reviewed up to this point in time: agreed with
History of Present Illness
History of Present Illness:
84 yr. old female presents today for evaluation. She reports she fell out of bed about the night last night. she reports she has not felt well for the past several days and has been mostly in bed because she thought she had UTI. she took Azo
last night because of her symptoms. Starting several days ago she thought she had a UTI with some burning with urination. She reports she did drink a lot of water and felt better but then it came back again. She presents to the ER with
abrasions/superficial lacerations to forehead. She denies any headache. She denies any neck pain. She is not on blood thinners. She denies any lightheaded dizziness chest pain. She is not exactly sure what happened which made her fall out of
bed last night. She is unsure of her last tetanus.
She is not on blood thinners.
Past History
<LUIS Heath - Last Filed: 10/19/24 16:14>
Past History
ED Past Medical History: Hypercholesterolemia, Hypothyroidism, Psychiatric (Depression) and Other (Fibromyalgia)
ED Past Surgical History: None
Social History
Tobacco: Non-smoker
Alcohol: None
Drug: None
Personal:
Living: alone
Employment: Retired
Review of Systems
<LUIS Heath - Last Filed: 10/19/24 16:14>
Review of Systems
Allergies reviewed?: Yes
Constitutional: Reports no symptoms; Denies fever, fatigue or chills
EENT: Reports no symptoms
Respiratory: Reports no symptoms
Cardiac: Reports no symptoms
ABD/GI: Reports no symptoms
: Reports dysuria
Musculoskeletal: Reports no symptoms
Skin: Reports other (abrasions to forehead )
Neurological: Reports no symptoms
Psychiatric: Reports no symptoms
Phy Exam
<LUIS Heath - Last Filed: 10/19/24 16:14>
General Physical Exam
General Presentation: no apparent distress
General age: appears stated age
General Skin: warm and dry
General Habitus: normal
General Mental: alert
General Hydration: appears well hydrated
Eye Exam
Eye Exam: PERRL, EOMI and other (Right lateral eye subconjunctival hemorrhage)
Cardiovascular Exam
Cardiovascular Exam: regular rate/rhythm, no murmur and normal peripheral pulses
Pulmonary Exam
Pulmonary Exam: lungs clear and no respiratory distress
Gastrointestinal Exam
Gastrointestinal Exam: non tender and soft
Neurological Exam
Neurological Exam: alert, oriented x3, no motor deficits and no sensory deficits
Musculoskeletal Exam
Musculoskeletal Exam: full ROM and other (Abrasions to left forehead and right lateral eye )
Course
<LUIS Heath - Last Filed: 10/19/24 16:14>
Orders/Labs/Results
Orders:
Orders
10/19/24 10:33
CT Cervical Spine W/o Iv Contr Urgent
Comment:
Reason For Exam: trauma
CT Head W/o Iv Contrast Urgent
Comment:
Reason For Exam: trauma
10/19/24 10:34
Electrocardiogram (*1) Stat
Reason for Study: Abdominal Pain
EKG- Treatment ONCE
IV Insert/Care/Rem.- Treatment PRN
0.9% Sodium Chloride 500 ml [Nss] 500 ml IV BOLUS
10/19/24 11:09
Complete Blood Count/With Diff Urgent
Comprehensive Metabolic Panel Urgent
10/19/24 11:36
Urinalysis Reflex To Culture Urgent
Date Specimen was Collected: 10/19/24
Time Specimen was Collected: 11:01
Urine Microscopic Reflex Cult Urgent
Urine Culture Urgent
RODNEY Source: U
Specimen Description:
Date Specimen was Collected: 10/19/24
Time Specimen was Collected: 11:01
10/19/24 12:52
CefTRIAXone [Rocephin] 1,000 mg IV NOW STA
10/19/24 16:10
Tetanus/Diphth/Acelpertussis [Adacel] 0.5 ml IM .ONCE ONE
Abnormal Lab Results
10/19/24 10/19/24
11:09 11:36
Absolute Neuts (auto) 6.7 H 10^3/uL
(1.4-6.5)
Absolute Monos (auto) 1.0 H 10^3/uL
(0.1-0.6)
Lymphocytes % 16.8 L %
(20.5-51.1)
Monocytes % 10.6 H %
(1.7-9.3)
Sodium 130 L mmol/L
(135-145)
Chloride 97 L mmol/L
(98-107)
Total Protein 6.0 L g/dl
(6.3-8.2)
Ur Occult Blood Reflex 4+ A
(Negative)
Leukocyte Esterase Rfl 3+ A
(Negative)
Urine RBC 3-6 A /HPF
(0-2)
Urine WBC (Reflex) 40-50 A /HPF
(0-5)
Urine Bacteria (Reflex) Moderate A
(Negative)
Urine Albumin (Reflex) 2+ A
(Neg - Trace)
10/19/24 11:09
10/19/24 11:09
Vital Signs
Initial and Last Documented VS:
Initial Vital Signs
Temp Pulse Resp BP Pulse Ox
36.8 C 76 16 136/74 98
10/19/24 09:36 10/19/24 09:36 10/19/24 09:36 10/19/24 09:36 10/19/24 09:36
Last Documented Vital Signs
Temp Pulse Resp BP Pulse Ox
36.8 C 76 16 154/75 97
10/19/24 09:36 10/19/24 09:36 10/19/24 09:36 10/19/24 13:00 10/19/24 13:45
Insulation Sprayer consulted with Physician
Insulation Sprayer consulted with physician?: Yes
Name of Physician Consulted: Megan
<Alan Guzman MD - Last Filed: 10/19/24 16:35>
Orders/Labs/Results
Orders:
Orders
10/19/24 10:33
CT Cervical Spine W/o Iv Contr Urgent
Comment:
Reason For Exam: trauma
CT Head W/o Iv Contrast Urgent
Comment:
Reason For Exam: trauma
10/19/24 10:34
Electrocardiogram (*1) Stat
Reason for Study: Abdominal Pain
EKG- Treatment ONCE
IV Insert/Care/Rem.- Treatment PRN
0.9% Sodium Chloride 500 ml [Nss] 500 ml IV BOLUS
10/19/24 11:09
Complete Blood Count/With Diff Urgent
Comprehensive Metabolic Panel Urgent
10/19/24 11:36
Urinalysis Reflex To Culture Urgent
Date Specimen was Collected: 10/19/24
Time Specimen was Collected: 11:01
Urine Microscopic Reflex Cult Urgent
Urine Culture Urgent
RODNEY Source: U
Specimen Description:
Date Specimen was Collected: 10/19/24
Time Specimen was Collected: 11:01
10/19/24 12:52
CefTRIAXone [Rocephin] 1,000 mg IV NOW STA
10/19/24 16:10
Tetanus/Diphth/Acelpertussis [Adacel] 0.5 ml IM .ONCE ONE
Abnormal Lab Results
10/19/24 10/19/24
11:09 11:36
Absolute Neuts (auto) 6.7 H 10^3/uL
(1.4-6.5)
Absolute Monos (auto) 1.0 H 10^3/uL
(0.1-0.6)
Lymphocytes % 16.8 L %
(20.5-51.1)
Monocytes % 10.6 H %
(1.7-9.3)
Sodium 130 L mmol/L
(135-145)
Chloride 97 L mmol/L
(98-107)
Total Protein 6.0 L g/dl
(6.3-8.2)
Ur Occult Blood Reflex 4+ A
(Negative)
Leukocyte Esterase Rfl 3+ A
(Negative)
Urine RBC 3-6 A /HPF
(0-2)
Urine WBC (Reflex) 40-50 A /HPF
(0-5)
Urine Bacteria (Reflex) Moderate A
(Negative)
Urine Albumin (Reflex) 2+ A
(Neg - Trace)
10/19/24 11:09
10/19/24 11:09
Vital Signs
Initial and Last Documented VS:
Initial Vital Signs
Temp Pulse Resp BP Pulse Ox
36.8 C 76 16 136/74 98
10/19/24 09:36 10/19/24 09:36 10/19/24 09:36 10/19/24 09:36 10/19/24 09:36
Last Documented Vital Signs
Temp Pulse Resp BP Pulse Ox
36.8 C 76 16 154/75 97
10/19/24 09:36 10/19/24 09:36 10/19/24 09:36 10/19/24 13:00 10/19/24 13:45
<LUIS Heath - Last Filed: 10/19/24 16:14>
MDM/Problems Addressed
Differential Diagnosis Includes:
Not limited to head injury, abrasion contusion subconjunctival hemorrhage UTI dehydration
MDM/Problems Addressed:
Patient is 84-year-old female who had UTI symptoms for the past few days has not felt well in the past several days. She presented here for fall fall out of bed. This occurred in the middle the night. She does have obvious abrasions to her face
with a mild subconjunctival hemorrhage to the right lateral eye. She is not on blood thinners. She presents awake alert. She denies any nausea vomiting fever chills. She does have an obvious UTI and is afebrile with a normal white count however
with not feeling well and falls related to UTI would recommend admission IV antibiotics ordered.
<LUIS Heath - Last Filed: 10/19/24 16:14>
*Radiology
Radiology exam reviewed: radiology read reviewed
*Pulse Oximetry
Patient hypoxic: no
*Critical Care Note
Total Time (30-74mins, 75-104mins- exclusive of procedures): Not Applicable
ED Attending Note
<LUIS Heath - Last Filed: 10/19/24 16:14>
-
Portions of this chart may have been created with voice recognition software.� Occasional wrong word or��sound alike� substitutions may have occurred due to the inherent limitations of voice recognition software.
<Alan Guzman MD - Last Filed: 10/19/24 16:35>
ED Attending Note
Patient seen and examined by attending physician: Yes
ED Attending Note:
I have seen and evaluated the patient with a [id number] encounter. I have spoken to the advance practicer provider and involved in the medical history, the physical exam, medical decision making.
Evaluation and management service: agree unless noted differently below.
Results interpretation: agree unless noted differently below.
Focused HPI: 84-year-old female with history as documented presents to the emergency room from [facility] where she lives assisted living. Presents via EMS for evaluation of fall. Patient reports that she fell out of bed earlier today struck her
head on the table. No loss of consciousness reported. She was too weak to stand up and brought into the emergency room by EMS. She feels generally weak and reports some mild soreness in her head where she struck it. She denies any neck pain,
chest pain, abdominal pain. She denies any pain in her lower extremities. She denies being on any blood thinners. She does note that the past few days she has had some dysuria and suprapubic fullness.
Physical exam: Awake alert GCS 15. She has left forehead contusion and contusion along the right lateral orbital rim. She has a small subconjunctival hemorrhage in the right eye but her pupils are equal round and reactive to light bilaterally.
Her tongue is atraumatic. She has no tenderness in the cervical spine. She has no signs of trauma to the back or flank and no tenderness in the thoracic or lumbar spine. She has no chest wall tenderness. Her abdomen is nontender. She has a
minor abrasion to the left knee but no other signs of acute trauma to the extremities.
Medical Decision Makin-year-old female presents for evaluation after fall complaining of severe weakness. She has had some urinary symptoms the past few days. Vitals and exam as above. Labs sent off including a CBC and a CMP which showed no
clinically significant abnormalities. Her urinalysis is positive for infection. CT head and cervical spine negative for any acute pathology. Given severe weakness and falls we will admit for treatment of UTI.
Discharge Plan
Departure
Patient Disposition: Admit
Date of Disposition: 10/19/24
Time of Disposition: 16:13
Admit to: Med/Surg
Admit to doctor: hospitalist
Presentation/result/management discussed w/ accepting MD/DO: Hospitalist
Patient with high blood pressure during this ER visit?: Yes
Condition: Fair
Covid-19: Not Applicable
Discharge Problem:
Fall, Acute UTI, Head injury, subconjunctival hemorrhage
Prescriptions:
No Action
aripiprazole 2 MG tablet
1 mg PO DAILY
cyanocobalamin (vitamin B-12) [Vitamin B-12] 1,000 mcg Tablet
1,000 mcg PO DAILY
biotin 5,000 mcg Tablet,Disintegrating
5,000 mcg PO DAILY
polyethylene glycol 3350 [Miralax] 17 gram Powder In Packet
17 g PO DAILYPRN PRN (Reason: constipation)
simvastatin 10 mg Tablet
10 mg PO QPM
cholecalciferol (vitamin D3) [Vitamin D3] 50 mcg (2,000 unit) Tablet
50 mcg PO DAILY
miconazole nitrate [Miconazorb AF] 2 % Powder
1 applic topical BID Qty: 85 0RF
amlodipine 10 mg Tablet
10 mg PO DAILY 30 Days Qty: 30 0RF
lisinopril 10 mg Tablet
10 mg PO DAILY 30 Days Qty: 30 0RF
mirtazapine 15 mg Tablet
15 mg PO HS 30 Days Qty: 30 0RF
levothyroxine 75 mcg tablet
75 mcg PO DAILY@0600
alprazolam 0.25 mg Tablet
0.125 mg PO Q8HPRN PRN (Reason: anxiety) 3 Days Qty: 4 0RF
Rx Instructions:
for 3 days
Referrals:
UNKNOWN - PT NOT,INTERVIEWE [Family Provider] -
Interventions
Interventions:
*Risk Screen - Suicide Last Done: 10/19/24 09:36
*General Assessment Last Done: 10/19/24 11:12
*Neglect/Abuse Screening Last Done: 10/19/24 09:36
ED-Musculoskeletal Assessment Last Done: 10/19/24 11:12
ED- Neurological Assessment Last Done: 10/19/24 11:12
ED-Skin Assessment Last Done: 10/19/24 11:12
Discharge Date and Time
Print Language: OCCITAN
[2024-10-19] MEDS: NSS 500 IV (11:01)
[2024-10-19 11:11] VITALS: BMI 22.8
[2024-10-19 11:30] LABS: % Basophils 0.4 % (0-2); % Immature Granulocytes 0.3 % (0-0.5); % Lymphocytes 16.8 % (20.5-51.1); % Monocytes 10.6 % (1.7-9.3); % Neutrophils 71.9 % (42.2-75.2); Absolute Lymphocytes 1.6 10^3/uL (1.2-3.4); Absolute Neutrophils 6.7 10^3/uL (1.4-6.5); Hematocrit 38.7 % (37.0-47.0); Hemoglobin 13.6 g/dL (12.0-16.0); Mean Corp Hgb Conc. 35.1 g/dL (33.0-37.0); Mean Corpuscular Volume 88.2 fL (81.0-99.0); Mean Platelet Volume 9.1 fL (7.4-10.4); Nucleated Red Blood Cells % 0 %; Platelet Count 291 10^3/uL (130-400); Red Blood Cell Count 4.39 10^6/uL (4.20-5.40); Red Cell Dist. Width 13.9 % (11.5-14.5); White Blood Cell Count 9.3 10^3/uL (4.8-10.8)
[2024-10-19 11:45] LABS: ALT (SGPT) 20 U/L (0-35); AST (SGOT) 24 U/L (14-36); Albumin 3.6 g/dl (3.5-5.0); Alkaline Phosphatase 67 U/L (38-126); Blood Urea Nitrogen 11 mg/dl (7-17); Calcium 8.9 mg/dl (8.4-10.2); Carbon Dioxide 27 mmol/L (22-30); Chloride 97 mmol/L (98-107); Estimated Creatinine Clearance 55 ml/min; Glucose 93 mg/dl (70-99); Potassium 4.3 mmol/L (3.5-5.1); Sodium 130 mmol/L (135-145); eGFR > 60.00
[2024-10-19 12:00] VITALS: BP 156/76
[2024-10-19 12:00] LABS: Urine Albumin 2+ (Neg - Trace); Urine Bilirubin Negative (Negative); Urine Character Clear (Clear); Urine Color Yellow; Urine Glucose Negative (Negative); Urine Ketone Negative (Negative); Urine Leukocyte 3+ (Negative); Urine Nitrite Negative (Negative); Urine Occult Blood 4+ (Negative); Urine Urobilinogen Negative (Neg - 1+)
[2024-10-19 12:32] LABS: Urine Squamous Cell 0-2 /LPF (Few)
[2024-10-19 12:34] LABS: Urine Bacteria Moderate (Negative); Urine White Cell 40-50 /HPF (0-5)
[2024-10-19 13:00] VITALS: BP 154/75
[2024-10-19] MEDS: ROCEPHIN 1000 MG IV (13:08)
[2024-10-19] MEDS: ADACEL 0.5 ML IM (16:17)
[2024-10-19 18:29] VITALS: BP 135/65
--- NOTE | 2024-10-19 19:17 | HPS.HSE ---
Family Physician
-
Family Physician: INTERVIEWE UNKNOWN - PT NOT
Chief Complaint
-
Fall and abrasions/superficial lacerations to forehead.
History of Present Illness
HPI
84F non smoker , Hypercholesterolemia, Hypothyroidism, Fibromyalgia seen at ER OSH Fall
- reports she fell out of bed about the night last night
- has not felt well for the past several days
- several days ago she thought she had a UTI with some burning with urination.
- she did drink a lot of water and felt better but then it came back again.
- She is not exactly sure what happened which made her fall out of bed last night.
- She presents to the ER with abrasions/superficial lacerations to forehead.
- not on blood thinners.
- HX Poly ABX allergy ( Amoxicillin, Clavulanic acid, Neomycin, Polymyxin, Bactrim, Tetracycline & trimethoprim)
ROS
denies any headache
denies any neck pain
denies any lightheaded dizziness chest pain. She is unsure of her last tetanus.
not on blood thinners.
Medical History
Past Medical History
Past Medical History: Reports HTN, Hypercholesterolemia, Hypothyroidism and Psychiatric (Xanax PRN dependent anxiety , depression )
Past Surgical History: Reports None
Social History
Tobacco: Non-smoker
Alcohol: None
Family History
Family History: Not pertinent
Allergies / Home Medications
Allergies reflects when Allergies were last updated in [employer].
Home Medications with original date entered in [employer]
Allergy/Medication List:
Allergies
Allergy/AdvReac Type Severity Reaction Status Date / Time
amoxicillin [From Augmentin] Allergy Hives Verified 10/19/24 09:37
bacitracin Allergy Rash Verified 10/19/24 09:37
[From Neosporin
([id number])]
clavulanic acid Allergy Hives Verified 10/19/24 09:37
[From Augmentin]
neomycin Allergy Rash Verified 10/19/24 09:37
[From Neosporin
([id number])]
polymyxin B Allergy Rash Verified 10/19/24 09:37
[From Neosporin
([id number])]
sulfamethoxazole Allergy Rash Verified 10/19/24 09:37
[From Bactrim]
Tetracyclines Allergy Rash Verified 10/19/24 09:37
trimethoprim [From Bactrim] Allergy Rash Verified 10/19/24 09:37
Home Medications
aripiprazole 2 mg tablet 1 mg PO DAILY Mental Health/Anxiety 09/14/21
biotin 5,000 mcg disintegrating tablet 5,000 mcg PO DAILY Supplement 04/07/22
cyanocobalamin (vitamin B-12) 1,000 mcg tablet (Vitamin B-12) 1,000 mcg PO DAILY Supplement 04/07/22
cholecalciferol (vitamin D3) 50 mcg (2,000 unit) tablet (Vitamin D3) 50 mcg PO DAILY Supplement 04/30/24
polyethylene glycol 3350 17 gram oral powder packet (Miralax) 17 g PO DAILYPRN PRN constipation 04/30/24
simvastatin 10 mg tablet 10 mg PO HS@1900 High Cholesterol 04/30/24
levothyroxine 75 mcg tablet 75 mcg PO DAILY@0700 Thyroid 07/23/24
acetaminophen 325 mg tablet 650 mg PO Q4H PRN mild pain 10/19/24
alprazolam 0.25 mg tablet 0.125 mg PO BIDPRN PRN anxiety 10/19/24
alprazolam 0.25 mg tablet 0.125 mg PO HS 10/19/24
mirtazapine 15 mg tablet 15 mg PO HS@1900 10/19/24
Review of Systems
-
Constitutional: Reports No Symptoms
EENT: Reports See HPI
Respiratory: Reports No Symptoms
Cardiac: Reports No Symptoms
Abdomen/GI: Reports No Symptoms
: Reports No Symptoms
Musculoskeletal: Reports No Symptoms
Skin: Reports No Symptoms
Neurological: Reports No Symptoms
Endocrine: Reports No Symptoms
Hematologic/Lymphatic: Reports No Symptoms
Psych: Reports No Symptoms
Physical Exam
Vital Signs
Vital Signs
Temp Pulse Resp BP Pulse Ox
98.2 F 72 20 135/65 94
10/19/24 09:36 10/19/24 18:29 10/19/24 18:29 10/19/24 18:29 10/19/24 18:29
Physical Exam
General: Well Developed, Well Nourished and No Apparent Distress
Respiratory: Clear
Cardiac: S1/S2 and Regular Rhythm; No Murmur or Rub
GI: Soft, Non Tender, Non Distended and Normal Bowel Sounds; No Organomegaly
Rectal: Deferred by Provider
Musculoskeletal: No Clubbing, No Cyanosis and No Edema
Skin: Other (abrasions/superficial lacerations to forehead. ); No Rash
Neuro: Awake, Alert, Oriented and Nonfocal/grossly intact
Laboratory Results
-
10/19/24 11:09
10/19/24 11:09
Laboratory Results
Total Bilirubin 1.0 mg/dl (0.2-1.3) 10/19/24 11:09
AST 24 U/L (14-36) 10/19/24 11:09
ALT 20 U/L (0-35) 10/19/24 11:09
Alkaline Phosphatase 67 U/L (38-126) 10/19/24 11:09
Data Reviewed
-
CT Scan: Report Reviewed by me
Lab Data: Labs Reviewed by me
Impression/Plan
-
Data
Abnormal Lab Results
10/19/24 10/19/24
11:09 11:36
Absolute Neuts (auto) 6.7 H
Absolute Monos (auto) 1.0 H
Lymphocytes % 16.8 L
Monocytes % 10.6 H
Sodium 130 L
Chloride 97 L
Total Protein 6.0 L
Ur Occult Blood Reflex 4+ A
Leukocyte Esterase Rfl 3+ A
Urine RBC 3-6 A
Urine WBC (Reflex) 40-50 A
Urine Bacteria (Reflex) Moderate A
Urine Albumin (Reflex) 2+ A
Nl CBC
Na 130
Cl 97
eGFR > 60
Nl LFTs
UA POS WCC 40-50
UCX sent
10/16/24 UCX - NGTD
CT Cervical Spine W/o Iv Contr + CT Head W/o Iv Contrast
1. No acute intracranial abnormality noted.
2. No acute fracture or subluxation of the cervical spine.
3. Multilevel degenerative changes of the cervical spine.
Last hospitalist admission: 07/23/2024 - 07/25/2024
DISCHARGE DIAGNOSES:
1. Vomiting/diarrhea, likely viral.
2. Generalized weakness.
ASSESSMENT & PLAN
Pending Rx reconciliation
Partially treated UTI with abn significant pyuria; NEG UCX on 10/16/24
Associated generalized weakness
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
HX Polyantibiotic allergy ( Amoxicillin, Clavulanic acid, neomycin, Polymyxin, Bactrim and Tetracycline, trimethoprim)
- f/u UCxc
- empiric IV CFTZ
Fall with unknown mechanism sustained abrasions/superficial lacerations to forehead.
- NEG HCT and NEG CT Cx spine
- Generalized weakness
- PT
Hypochloremic Hyponatremia
- suspect excess water intake
- TSH, Ur Na, Ur OSM, Sr Osm
- s/p NS 500 at ER then FR 1200 cc
- Trend Na in AM
Essential HTN
- cont. BEVEL OPERATOR Norvasc
- cont. BEVEL OPERATOR lisinopril
Hypothyroidism
- on BEVEL OPERATOR Levothyroxine
HLD
- on BEVEL OPERATOR Statin
Fibromyalgia
Anxiety/depression
- on BEVEL OPERATOR Alprazolam, Abilify, mirtazapine
Severe protein caloric malnutrition
DVT Px: SQH
DNR per patient in the presence of SILK FOLDER in the room
Obs TLM
[2024-10-19 22:17] VITALS: BP 149/64
[2024-10-19 23:50] VITALS: BP 159/74
[2024-10-19 23:51] VITALS: BMI 20.7
[2024-10-20] MEDS: ROCEPHIN 1000 MG IV ×2 (00:55→23:03)
[2024-10-20] MEDS: HEPARIN 5000 UNITS SC ×3 (00:55→20:40)
[2024-10-20] MEDS: STERILE WATER FOR INJECTION 10 ML IV ×2 (00:55→23:02)
[2024-10-20] MEDS: XANAX PO (01:26)
--- NOTE | 2024-10-20 01:36 | PTCARENOTE ---
Pt admitted to rm 317-1 from ER. Pulled over to bed from stretcher. VSS. Oriented to room and call [place]. In regards to call [place], patient 'If I have to go to the bathroom, I will just get up, I'm not doing that'. Bed alarm placed.
[2024-10-20 06:00] VITALS: BMI 20.8
[2024-10-20] MEDS: SYNTHROID 75 MCG PO (06:42)
[2024-10-20 07:49] VITALS: BP 146/78
[2024-10-20 08:12] LABS: Hematocrit 39.8 % (37.0-47.0); Hemoglobin 13.6 g/dL (12.0-16.0); Mean Corp Hgb Conc. 34.2 g/dL (33.0-37.0); Mean Corpuscular Hgb 30.4 pg (27.0-31.0); Mean Platelet Volume 9.5 fL (7.4-10.4); Platelet Count 320 10^3/uL (130-400); Red Blood Cell Count 4.47 10^6/uL (4.20-5.40); Red Cell Dist. Width 14.1 % (11.5-14.5); White Blood Cell Count 7.6 10^3/uL (4.8-10.8)
--- NOTE | 2024-10-20 08:13 | W.PN.HOSP.TC ---
Today's Communication/Plan
-
Continue antibiotics
Follow cultures
Assessment / Plan
Assessment / Plan
Physical Exam
General: Well Developed, Well Nourished and No Apparent Distress
Respiratory: Clear bilaterally
Cardiac: S1/S2 and Regular Rhythm
GI: Soft, Non Tender, Non Distended and Normal Bowel Sounds
Musculoskeletal: No Cyanosis and No Edema
Skin: Other (abrasions/superficial lacerations to forehead. ); No Rash
Neuro: Awake, Alert, Oriented and Nonfocal/grossly intact
Assessment/Plan
HPI
84F non smoker , Hypercholesterolemia, Hypothyroidism, Fibromyalgia seen at ER OSH Fall
- reports she fell out of bed about the night last night
- has not felt well for the past several days
- several days ago she thought she had a UTI with some burning with urination.
- she did drink a lot of water and felt better but then it came back again.
- She is not exactly sure what happened which made her fall out of bed last night.
- She presents to the ER with abrasions/superficial lacerations to forehead.
- not on blood thinners.
- HX Poly ABX allergy ( Amoxicillin, Clavulanic acid, Neomycin, Polymyxin, Bactrim, Tetracycline & trimethoprim)
CT Cervical Spine W/o Iv Contr + CT Head W/o Iv Contrast
1. No acute intracranial abnormality noted.
2. No acute fracture or subluxation of the cervical spine.
3. Multilevel degenerative changes of the cervical spine.
Last hospitalist admission: 07/23/2024 - 07/25/2024
DISCHARGE DIAGNOSES:
1. Vomiting/diarrhea, likely viral.
2. Generalized weakness.

Presentation with several days history of shivering/shaking chills, new lower back/flank pain, dysuria and urinary frequency
Complicated Urinary Tract Infection with systemic symptoms
Partially treated UTI with abn significant pyuria; NEG UCX on 10/16/24
Associated generalized weakness
HX Enterococcal faecalis s/p Fosfomycin
HX Polyantibiotic allergy ( Amoxicillin, Clavulanic acid, neomycin, Polymyxin, Bactrim and Tetracycline, trimethoprim)
- f/u Ur culture -- starting to come back positive for gram negative bacilli so far, also see if enterococcus comes back on it
- Given patient had shaking chills outpatient, appears UTI was getting worse with systemic symptoms, therefore ordered blood cultures
- Follow blood cultures
- empiric IV CFTZ and Vanco to cover any possible enterococcus
- ID consulted
Fall with unknown mechanism sustained abrasions/superficial lacerations to forehead.
- NEG HCT and NEG CT Cx spine
- Generalized weakness
- PT
Hyponatremia
- suspect excess water intake, SIADH
- Resolved now, if happens again, do PO FR
Essential HTN
- cont. SALES SUPPORT CONSULTANT Norvasc
- cont. SALES SUPPORT CONSULTANT lisinopril
Chronic Orthostatic Hypotension
- Fall precautions
- She sees [facility] cardio Dr. Castillo outpatient
Hypothyroidism
- on SALES SUPPORT CONSULTANT Levothyroxine
Hyperlipidemia
- on SALES SUPPORT CONSULTANT Statin
Fibromyalgia
Anxiety/depression
- on SALES SUPPORT CONSULTANT Alprazolam, Abilify, mirtazapine
Severe protein caloric malnutrition
DVT Prophylaxis: SQH
DNR
I spoke over the phone with patient's Linda today and answered all her questions and concerns to satisfaction.
Anticipated Discharge: 24 - 48 hours
Subjective/Interval History
-
Date of Service: October 20, 2024
Patient was seen and examined. She reported feeling better than when she came in. No fever overnight.
Objective Data
-
Labs:
Laboratory Results
10/20/24
06:33
WBC 7.6
Hgb 13.6
Hct 39.8
Plt Count 320
Sodium Pending
Potassium Pending
Chloride Pending
Carbon Dioxide Pending
BUN Pending
Creatinine Pending
Glucose Pending
Calcium Pending
Vital Signs:
Vital Signs
Temp Pulse Resp BP Pulse Ox
97.7 F 75 18 146/78 97
10/20/24 07:49 10/20/24 07:49 10/20/24 07:49 10/20/24 07:49 10/20/24 07:49
[2024-10-20 08:16] LABS: Urine Sodium 82 mmol/L (30-90)
[2024-10-20 08:29] LABS: Blood Urea Nitrogen 12 mg/dl (7-17); Calcium 8.7 mg/dl (8.4-10.2); Carbon Dioxide 23 mmol/L (22-30); Chloride 104 mmol/L (98-107); Estimated Creatinine Clearance 53 ml/min; Glucose 83 mg/dl (70-99); Potassium 4.6 mmol/L (3.5-5.1); Sodium 136 mmol/L (135-145); eGFR > 60.00
[2024-10-20 08:41] LABS: Osmolality Serum 281 mOsm/kg (275-300)
[2024-10-20 08:43] LABS: Osmolality Urine 478 mOsm/kg (300-900)
[2024-10-20 08:58] LABS: TSH 3.64 uIU/ml (0.47-4.68)
[2024-10-20] MEDS: ABILIFY 1 MG PO (09:01)
[2024-10-20] MEDS: VANCOCIN 275 MG IV (09:03)
--- NOTE | 2024-10-20 10:52 | PHA.VAN.IN ---
Assessment
- Assessment
Renal Function: Appears similar to baseline
Concomitant Antimicrobials: CEFTRIAXONE
AUC Dosing Plan
- Dosing Variables
Dosing Weight (kg): 56
Dosing CrCl (ml/min): 53
Vd coefficient (L/kg): 0.7
- Empiric Dosing
Initial / Loading Dose: VANCO 1250MG X1
Maintenance Regimen: VANCO 1000MG Q24H
Estimated AUC (mcg*h/mL): 540
Estimated Peak (mcg*h/mL): 37.1
Estimated Trough (mcg/ml): 12.2
Estimated Half Life (H): 14.3
- Monitoring
No levels ordered at this time: CONSIDER LEVEL PRIOR TO 4TH MAINTENANCE DOSE
Pharmacokinetics Vancomycin I
- -
Patient Age: 84
Patient Sex: Female
Vancomycin Day #: 1
Indication: Genito-Urinary Tract
Requesting Provider: DR. ROBERSON
Pertinent Antimicrobial Allergies:
AMOXICILLIN (HIVES)
TQC-SRR-POHTD (RASH)
SULFA (RASH)
TETRACYCLINES (RASH)
Height / Weight:
Height 5 ft 5 in
Actual Weight 56.744 kg
- Vital Signs / Lab Results
Temp Pulse Resp BP Pulse Ox
97.7 F 75 18 146/78 97
10/20/24 07:49 10/20/24 07:49 10/20/24 07:49 10/20/24 07:49 10/20/24 07:49
Lab Results - Hematology
10/19/24 10/20/24
11:09 06:33
WBC 9.3 7.6
Lab Results - Chemistry
10/19/24 10/20/24
11:09 06:33
BUN 11 12
Creatinine 0.7 0.7
Estimated Creat Clear 55 53
Albumin 3.6
Lab Results - Urine
10/19/24
11:36
Urine Nitrite (Reflex) Negative
Leukocyte Esterase Rfl 3+ A
Urine WBC (Reflex) 40-50 A
Ur Squamous Epith Cells 0-2
Urine Bacteria (Reflex) Moderate A
--- NOTE | 2024-10-20 11:54 | CM ---
Initial assessment completed with pt at the bedside.
Pt is an 84yr old female admitted with UTI and fall with face laceration.
At baseline, pt lives at [facility] in [facility]isted Living.
Pt is independent and uses a Rollator for mobility. Pt does her own ADLs.
Pillager supports med management and meals.
Additional equipment the pt has includes a RW, shower bench and bars.
Pt has no hx of VN and has been to [facility]
PCP; pt could not recall the providers name, but sees the house at [facility]
Pts daughter will provide transport back to [facility] when medically cleared. Pt expecting today.
PLAN; Return to [facility]
[2024-10-20 15:55] VITALS: BP 135/71
[2024-10-20] MEDS: REMERON 15 MG PO (20:37)
[2024-10-20] MEDS: LIPITOR 10 MG PO (20:40)
[2024-10-20] MEDS: XANAX 0.125 MG PO (22:59)
[2024-10-20 23:00] VITALS: BP 154/75
[2024-10-21] MEDS: VANCOCIN 200 IV (05:51)
[2024-10-21] MEDS: SYNTHROID 75 MCG PO (05:52)
[2024-10-21 06:00] VITALS: BMI 21.5
[2024-10-21 06:51] LABS: Hemoglobin 13.5 g/dL (12.0-16.0); Mean Corp Hgb Conc. 34.6 g/dL (33.0-37.0); Mean Corpuscular Hgb 30.7 pg (27.0-31.0); Mean Corpuscular Volume 88.6 fL (81.0-99.0); Mean Platelet Volume 9.2 fL (7.4-10.4); Platelet Count 270 10^3/uL (130-400); Red Cell Dist. Width 14.2 % (11.5-14.5); White Blood Cell Count 6.4 10^3/uL (4.8-10.8)
[2024-10-21 07:14] LABS: Blood Urea Nitrogen 21 mg/dl (7-17); Calcium 9.1 mg/dl (8.4-10.2); Carbon Dioxide 25 mmol/L (22-30); Chloride 105 mmol/L (98-107); Estimated Creatinine Clearance 46 ml/min; Glucose 109 mg/dl (70-99); Potassium 4.5 mmol/L (3.5-5.1); Sodium 135 mmol/L (135-145); eGFR > 60.00
[2024-10-21 07:15] VITALS: BP 164/72
[2024-10-21] MEDS: HEPARIN 5000 UNITS SC (08:01)
[2024-10-21] MEDS: ABILIFY 1 MG PO (08:01)
--- NOTE | 2024-10-21 09:22 | W.PN.HOSP.TC ---
Today's Communication/Plan
-
Likely dc today
Will need also PT/OT
Assessment / Plan
Assessment / Plan
Physical Exam
General: No Fever or Chills
HEENT: Normocephalic, Anicteric, PERRLA, [place] Conjunctivae and No Ptosis
Respiratory: Clear; No Wheezes, Rales or Rhonchi
Cardiac: S1/S2
GI: Soft, Non Tender, Non Distended, Normal Bowel Sounds
Rectal: No bleeding
Genito-urinary: No hematuria
Musculoskeletal: No Clubbing, No Cyanosis and No Edema
Skin: Warm and Dry; No Rash or Jaundice
Neuro: Awake, oriented to surroundings, forgetful . She followed commands.
Psych: Calm and seems less depressed (Denies suicidal ideation)
Assessment/Plan
HPI
84F non smoker , Hypercholesterolemia, Hypothyroidism, Fibromyalgia seen at ER OSH Fall
- reports she fell out of bed about the night last night
- has not felt well for the past several days
- several days ago she thought she had a UTI with some burning with urination.
- she did drink a lot of water and felt better but then it came back again.
- She is not exactly sure what happened which made her fall out of bed last night.
- She presents to the ER with abrasions/superficial lacerations to forehead.
- not on blood thinners.
- HX Poly ABX allergy ( Amoxicillin, Clavulanic acid, Neomycin, Polymyxin, Bactrim, Tetracycline & trimethoprim)
CT Cervical Spine W/o Iv Contr + CT Head W/o Iv Contrast
1. No acute intracranial abnormality noted.
2. No acute fracture or subluxation of the cervical spine.
3. Multilevel degenerative changes of the cervical spine.
Last hospitalist admission: 07/23/2024 - 07/25/2024
DISCHARGE DIAGNOSES:
1. Vomiting/diarrhea, likely viral.
2. Generalized weakness.

Presentation with several days history of shivering/shaking chills, new lower back/flank pain, dysuria and urinary frequency
Complicated Urinary Tract Infection with systemic symptoms
Partially treated UTI with abn significant pyuria; NEG UCX on 10/16/24
Associated generalized weakness
HX Enterococcal faecalis s/p Fosfomycin
HX Polyantibiotic allergy ( Amoxicillin, Clavulanic acid, neomycin, Polymyxin, Bactrim and Tetracycline, trimethoprim)
- f/u Ur culture -- gilbert sensitive Citrobacter Koseri
So far NGTD on blood culture
- s/p IV CFTZ and Vanco, can change to oral Keflex
- ID consulted
Fall with unknown mechanism sustained abrasions/superficial lacerations to forehead.
- NEG HCT and NEG CT Cx spine
- Generalized weakness
- PT
Hyponatremia
- Chronic SIADH
Essential HTN
- cont. CONCRETE RUBBER Norvasc
- cont. CONCRETE RUBBER lisinopril
Chronic Orthostatic Hypotension
- Fall precautions
- She sees [facility] cardio Dr. Castillo outpatient
Hypothyroidism
- on CONCRETE RUBBER Levothyroxine
Hyperlipidemia
- on CONCRETE RUBBER Statin
Fibromyalgia
Anxiety/depression
- on CONCRETE RUBBER Alprazolam, Abilify, mirtazapine
Severe protein caloric malnutrition
DVT Prophylaxis: SQH
DNR
Total discharge time spent to see the patient, examine the patient, review data and lab result, discuss discharge plan with patient, nursing staff around 65 minutes
Anticipated Discharge: Today
Subjective/Interval History
-
Date of Service: October 21, 2024
denies pain or sob
no abd pain
Wants to go home
Objective Data
-
Labs:
Laboratory Results
10/21/24
06:34
WBC 6.4
Hgb 13.5
Hct 39.0
Plt Count 270
Sodium 135
Potassium 4.5
Chloride 105
Carbon Dioxide 25
BUN 21 H
Creatinine 0.8
Glucose 109 H
Calcium 9.1
Vital Signs:
Vital Signs
Temp Pulse Resp BP Pulse Ox
97.5 F 76 18 154/75 97
10/20/24 23:00 10/20/24 23:00 10/20/24 23:00 10/20/24 23:00 10/20/24 23:00
I&O
10/20/24 10/21/24 10/22/24
06:59 06:59 06:59
Intake Total 900 / 900
Balance 900 / 900
[2024-10-21] MEDS: CEFTIN 250 MG PO (11:10)
[2024-10-21 11:43] VITALS: BP 150/78; PULSE 75; O2SAT 98
[2024-10-21 11:45] VITALS: BP 150/78; PULSE 75; O2SAT 98
--- NOTE | 2024-10-21 13:00 | CM ---
indicated ready for discharge.
Spoke with dgt Leydi [phone] reviewed PT OT recommendations for VN at pa.
Pt lives at [facility] [place] dgt requested [facility]. Referral placed to [facility] care.
Augustin Medfield called to notified pt returning today .
Dgt agrees with dc today.
She will drive pt home.
PLAN Return to [facility] report [phone]
[facility] fax [phone]
[2024-10-21 15:00] VITALS: BP 158/74
--- NOTE | 2024-10-21 15:53 | W.DCSUMMARY ---
Discharge Summary
Discharge Data
Date of Admission: 10/19/24
Date of Discharge: 10/21/24
-
Pending Results: No
Hospital Course
84 years old female presented after a fall at home. She reported weakness with some urinary symptoms. She sustained forehead wound that was not associated with acute intracranial abnormality. Patient was noted to have significant pyuria on urine
examination. She was started on intravenous antibiotic. She did not have fever or leukocytosis. She had mild hyponatremia and was given IV fluid with improvement in sodium level. hypoblood culture did not show any growth. Urine culture came
positive for pansensitive Citrobacter Koseri. Patient was given oral antibiotic. PT/OT evaluated the patient and recommended home care services. Patient was evaluated by shelter case manager. She remained hemodynamically stable and was discharged in a
stable condition.
Discharge Plan
-
Patient Disposition: Home with Home Care
Discharge Diagnosis/Procedures: UTI
Diet: As tolerated
Referrals:
UNKNOWN - PT NOT,INTERVIEWE [Family Provider] -
Prescriptions:
New
cefuroxime axetil 250 mg Tablet
250 mg PO BID Qty: 10 0RF
Rx Instructions:
Patient tolerated the medication in the hospital
Continued
aripiprazole 2 MG tablet
1 mg PO DAILY
cyanocobalamin (vitamin B-12) [Vitamin B-12] 1,000 mcg Tablet
1,000 mcg PO DAILY
biotin 5,000 mcg Tablet,Disintegrating
5,000 mcg PO DAILY
polyethylene glycol 3350 [Miralax] 17 gram Powder In Packet
17 g PO DAILYPRN PRN (Reason: constipation)
simvastatin 10 mg Tablet
10 mg PO HS@1900
cholecalciferol (vitamin D3) [Vitamin D3] 50 mcg (2,000 unit) Tablet
50 mcg PO DAILY
levothyroxine 75 mcg tablet
75 mcg PO DAILY@0700
acetaminophen 325 mg Tablet
650 mg PO Q4H PRN (Reason: mild pain)
alprazolam 0.25 mg Tablet
0.125 mg PO HS
alprazolam 0.25 mg tablet
0.125 mg PO BIDPRN PRN (Reason: anxiety)
mirtazapine 15 mg tablet
15 mg PO HS@1900
Discharge Orders:
Discharge Patient (As Directed); Ordered 10/21/24
Ordered By: Varun Villa
Discharge Date and Time
Discharge Date/Time: 10/21/24 15:07
Print Language: ESTONIAN
== END 2024-10-21 15:07 | disposition home health service (06) | DRG 689 ==
LOC: 3 WEST ACU 19:41
PROVIDERS: Hospitalist; Nurse Practitioner; ADMITTING PHYSICIAN Internal Medicine; ATTENDING PHYSICIAN Internal Medicine; EMERGENCY PHYSICIAN Emergency Medicine
PROC: 3E0234Z Introduction of Serum, Toxoid and Vaccine into Muscle, Percutaneous Approach (ICD-10-PCS; 2024-10-19)
DX: N39.0 Urinary tract infection, site not specified (principal); E43 Unspecified severe protein-calorie malnutrition; E22.2 Syndrome of inappropriate secretion of antidiuretic hormone; S00.81XA Abrasion of other part of head, initial encounter; S00.11XA Contusion of right eyelid and periocular area, initial encounter; I10 Essential (primary) hypertension; Z66 Do not resuscitate; E03.9 Hypothyroidism, unspecified; E78.00 Pure hypercholesterolemia, unspecified; F32.A Depression, unspecified; F41.9 Anxiety disorder, unspecified; I95.1 Orthostatic hypotension; B96.89 Other specified bacterial agents as the cause of diseases classified elsewhere; M79.7 Fibromyalgia; Z68.22 Body mass index [BMI] 22.0-22.9, adult; Z23 Encounter for immunization; Z88.1 Allergy status to other antibiotic agents; Z88.2 Allergy status to sulfonamides; Z79.890 Hormone replacement therapy; Z79.899 Other long term (current) drug therapy; W06.XXXA Fall from bed, initial encounter
CPT/HCPCS: 70450; 72125; 80048; 80053; 81003; 81015; 83930; 83935; 84300; 84443; 85025; 85027; 87040; 87070; 87077; 87086; 87186; 90471; 90715; 93005; 96361; 96374; 97163; 97166; 99285

== ENCOUNTER → 2024-11-20 16:01 | Outpatient (REF) | payer MEDICARE, OTHER, SELFPAY ==
[2024-11-20 16:20] LABS: Urine Albumin 1+ (Neg - Trace); Urine Bilirubin Negative (Negative); Urine Character Clear (Clear); Urine Color Yellow; Urine Glucose Negative (Negative); Urine Ketone Negative (Negative); Urine Leukocyte 2+ (Negative); Urine Nitrite Negative (Negative); Urine Occult Blood 4+ (Negative); Urine Specific Gravity 1.005 (<1.030); Urine Urobilinogen Negative (Neg - 1+)
[2024-11-20 17:17] LABS: Urine Bacteria Few (Negative); Urine Urothelial Cell 0-2 /LPF (FEW); Urine White Cell 80-90 /HPF (0-5)
== END ==
LOC: OLABMERCHI 16:01
PROVIDERS: ATTENDING PHYSICIAN Hospitalist
DX: N39.0 Urinary tract infection, site not specified (principal)
CPT/HCPCS: 81003; 81015; 87086

== ENCOUNTER 2025-02-26 08:34 | Emergency (ER) | payer MEDICARE, OTHER, SELFPAY ==
[2025-02-26] VITALS (7 sets, daily range): BP systolic 131–162; BP diastolic 56–88
--- NOTE | 2025-02-26 09:08 | EDRN ---
Ed S, SAM has just entered the room to evaluate the patient
[2025-02-26 09:14] LABS: Hematocrit 43.5 % (37.0-47.0); Hemoglobin 14.4 g/dL (12.0-16.0); Mean Corp Hgb Conc. 33.1 g/dL (33.0-37.0); Mean Corpuscular Volume 89.7 fL (81.0-99.0); Nucleated Red Blood Cells % 0 %; Platelet Count 231 10^3/uL (130-400); Red Cell Dist. Width 14.5 % (11.5-14.5)
--- NOTE | 2025-02-26 09:14 | ED.GENMED ---
History of Present Illness
General
Chief Complaint: Fainting/Passed Out
Source: patient
Exam Limitations: none
Time Seen by Provider: 02/26/25 08:45
Nursing documentation reviewed up to this point in time: agreed with
History of Present Illness
History of Present Illness:
84-year-old female with past medical history of hyperlipidemia early dementia presenting to the emergency department today after an episode where she syncopized. This was witnessed by staff at the assisted living facility. She was at breakfast she
was seated seem to slump over lost consciousness for a few seconds and then fully regained consciousness. She remembers feeling lightheaded prior. Denies any palpitations chest pain shortness of breath numbness or weakness associated. She denies
any ongoing symptoms at this point. She declined to get a COVID vaccination yesterday.
Past History
Past History
ED Past Medical History: Hypercholesterolemia, Hypothyroidism, Psychiatric (Depression) and Other (Fibromyalgia)
ED Past Surgical History: None
Social History
Tobacco: Non-smoker
Alcohol: None
Drug: None
Personal:
Living: alone
Employment: Retired
Review of Systems
Review of Systems
Allergies reviewed?: Yes
All Other Systems: ROS reviewed and negative except as documented in HPI and ROS
Phy Exam
Physical Exam
Physical Exam:
GENERAL: Alert , in no apparent distress
EYE: pupils equal and reactive
NECK: Supple, no significant adenopathy.
ENT: o/p clr, mmm.
CARDIAC: Regular rate and rhythm .
LUNGS: Clear breath sounds bilaterally, no acute respiratory distress, no wheezes/rales/rhonchi
ABDOMEN: Soft, without focal tenderness, no r/g, no cvat
NEUROLOGICAL: Alert and oriented, no focal neuro deficits
SKIN: Warm and dry, skin intact.
MUSCULOSKELETAL: No edema, well perfused.
PSYCH: Normal and appropriate interaction.
Course
Orders/Labs/Results
Orders:
Orders
02/26/25 08:47
EKG [Electrocardiogram (*1)] Urgent
Reason for Study: Chest Pain
EKG- Treatment ONCE
02/26/25 09:01
Complete Blood Count/With Diff Urgent
Comprehensive Metabolic Panel Urgent
02/26/25 12:19
Urinalysis Reflex To Culture Urgent
Date Specimen was Collected: 02/26/25
Time Specimen was Collected: 12:09
Urine Microscopic Reflex Cult Urgent
Urine Culture Urgent
RODNEY Source: U
Specimen Description:
Date Specimen was Collected: 02/26/25
Time Specimen was Collected: 12:09
Abnormal Lab Results
02/26/25 02/26/25
09:01 12:19
Absolute Lymphs (auto) 0.7 L 10^3/uL
(1.2-3.4)
Neutrophils % 83.8 H %
(42.2-75.2)
Lymphocytes % 9.0 L %
(20.5-51.1)
Glucose 102 H mg/dl
(70-99)
Leukocyte Esterase Rfl 1+ A
(Negative)
Urine RBC 3-6 A /HPF
(0-2)
Urine Bacteria (Reflex) Moderate A
(Negative)
02/26/25 09:01
02/26/25 09:01
Vital Signs
Initial and Last Documented VS:
Initial Vital Signs
Temp Pulse Resp Pulse Ox
97.9 F 70 18 96
02/26/25 08:37 02/26/25 08:37 02/26/25 08:37 02/26/25 08:37
Last Documented Vital Signs
Temp Pulse Resp BP Pulse Ox
97.9 F 77 19 142/72 97
02/26/25 08:37 02/26/25 10:45 02/26/25 10:45 02/26/25 10:00 02/26/25 10:45
MDM/Problems Addressed
MDM/Problems Addressed:
84-year-old female presenting to the emergency department today with concerns of syncopal episode while sitting at breakfast at her nursing facility. Witnesses deny any significant trauma. She denies any ongoing symptoms at this point. No
associated chest pain or palpitations. She did have a prodrome of lightheadedness. Here she is asymptomatic was on the monitor for multiple hours without any significant events. Labs unremarkable able to walk here without difficulty. Stable for
discharge return precautions given.
*Pulse Oximetry
SaO2: 96
Oxygen Mode of Delivery: Room air
Patient hypoxic: no (97)
*Critical Care Note
Total Time (30-74mins, 75-104mins- exclusive of procedures): Not Applicable
ED Attending Note
-
Portions of this chart may have been created with voice recognition software.� Occasional wrong word or��sound alike� substitutions may have occurred due to the inherent limitations of voice recognition software.
Discharge Plan
Departure
Patient Disposition: Home (Routine Discharge)
Date of Disposition: 02/26/25
Time of Disposition: 13:23
Patient with high blood pressure during this ER visit?: No
Condition: Good
Covid-19: Not Applicable
Discharge Problem:
Syncope
Instructions: Syncope (Fainting) (DC)
Prescriptions:
No Action
aripiprazole 2 MG tablet
1 mg PO DAILY
cyanocobalamin (vitamin B-12) [Vitamin B-12] 1,000 mcg Tablet
1,000 mcg PO DAILY
biotin 5,000 mcg Tablet,Disintegrating
5,000 mcg PO DAILY
polyethylene glycol 3350 [Miralax] 17 gram Powder In Packet
17 g PO DAILYPRN PRN (Reason: constipation)
simvastatin 10 mg Tablet
10 mg PO HS
cholecalciferol (vitamin D3) [Vitamin D3] 50 mcg (2,000 unit) Tablet
50 mcg PO DAILY
levothyroxine 75 mcg tablet
75 mcg PO QPM
acetaminophen 325 mg Tablet
650 mg PO Q4HPRN PRN (Reason: mild pain)
alprazolam 0.25 mg Tablet
0.125 mg PO HS
alprazolam 0.25 mg tablet
0.125 mg PO BIDPRN PRN (Reason: anxiety)
mirtazapine 15 mg tablet
15 mg PO HS
Referrals:
Cathleen Ayers, DO [Family Provider, General]
Activity Restrictions/Additional Instructions:
You came to the emergency department today after syncopal episode. Here you have a reassuring assessment. Please follow closely with your primary care doctor within 1 week. Return for any worsening, new or concerning symptoms.
Interventions
Interventions:
*Risk Screen - Suicide Last Done: 02/26/25 08:48
*General Assessment Last Done: 02/26/25 08:48
*Neglect/Abuse Screening Last Done: 02/26/25 08:48
*ED- Fall Risk Assessment Last Done: 02/26/25 08:48
*ED COVID-19 Vaccine History Last Done: 02/26/25 08:48
ED- Cardiac Assessment Last Done: 02/26/25 08:48
ED- Neurological Assessment Last Done: 02/26/25 08:48
Discharge Date and Time
Print Language: PORTUGUESE
[2025-02-26 09:34] LABS: ALT (SGPT) 35 U/L (0-35); AST (SGOT) 32 U/L (14-36); Albumin 4.0 g/dl (3.5-5.0); Alkaline Phosphatase 77 U/L (38-126); Blood Urea Nitrogen 14 mg/dl (7-17); Calcium 9.2 mg/dl (8.4-10.2); Carbon Dioxide 29 mmol/L (22-30); Chloride 102 mmol/L (98-107); Estimated Creatinine Clearance 44 ml/min; Glucose 102 mg/dl (70-99); Potassium 4.7 mmol/L (3.5-5.1); Sodium 135 mmol/L (135-145); Total Protein 6.6 g/dl (6.3-8.2); eGFR > 60.00
[2025-02-26 12:32] LABS: Urine Character Clear (Clear)
[2025-02-26 12:41] LABS: Urine Urothelial Cell 0-2 /LPF (FEW)
== END 2025-02-26 14:43 | disposition home or self-care (01) ==
LOC: EMR 08:34
PROVIDERS: Physician Assistant; EMERGENCY PHYSICIAN Emergency Medicine; FAMILY PHYSICIAN Hospitalist
DX: R55 Syncope and collapse (principal); E78.00 Pure hypercholesterolemia, unspecified; E03.9 Hypothyroidism, unspecified; F03.93 Unspecified dementia, unspecified severity, with mood disturbance
CPT/HCPCS: 99284; 80053; 81003; 81015; 85025; 87077; 87086; 93005

== ENCOUNTER 2025-04-27 06:04 | Emergency (ER) | payer MEDICARE, OTHER, SELFPAY ==
[2025-04-27 06:05] VITALS: BP 145/72
[2025-04-27 06:27] LABS: Hematocrit 44.2 % (37.0-47.0); Hemoglobin 14.9 g/dL (12.0-16.0); Mean Corp Hgb Conc. 33.7 g/dL (33.0-37.0); Mean Corpuscular Volume 91.1 fL (81.0-99.0); Nucleated Red Blood Cells % 0 %; Platelet Count 244 10^3/uL (130-400); Red Cell Dist. Width 13.9 % (11.5-14.5)
[2025-04-27 06:37] LABS: ALT (SGPT) 21 U/L (0-35); AST (SGOT) 23 U/L (14-36); Albumin 3.9 g/dl (3.5-5.0); Alkaline Phosphatase 76 U/L (38-126); Blood Urea Nitrogen 9 mg/dl (7-17); Calcium 8.8 mg/dl (8.4-10.2); Carbon Dioxide 27 mmol/L (22-30); Chloride 103 mmol/L (98-107); Estimated Creatinine Clearance 49 ml/min; Glucose 104 mg/dl (70-99); Potassium 4.4 mmol/L (3.5-5.1); Sodium 132 mmol/L (135-145); Total Protein 6.7 g/dl (6.3-8.2); eGFR > 60.00
[2025-04-27 07:00] VITALS: BP 153/72
--- NOTE | 2025-04-27 07:48 | ED.GENMED ---
History of Present Illness
General
Chief Complaint: Fainting/Passed Out
Source: patient
Exam Limitations: none
Time Seen by Provider: 04/27/25 07:40
History of Present Illness
History of Present Illness:
85-year-old female from [facility] presents via EMS after staff found her in the bathroom. They suspected syncope. She has a history of syncope in the past. She has a history of orthostatics. She denies any significant injury from the fall.
She denies any chest pain. No known head strike. She is not anticoagulated. She really has no complaints offered at this time
Past History
Past History
ED Past Medical History: Hypercholesterolemia, Hypothyroidism, Psychiatric (Depression) and Other (Fibromyalgia)
ED Past Surgical History: None
Social History
Tobacco: Non-smoker
Alcohol: None
Drug: None
Personal:
Living: alone
Employment: Retired
Phy Exam
Physical Exam
Physical Exam:
General: Well-appearing female no acute respiratory distress
HEENT normal cephalic atraumatic
Heart: Regular rate and rhythm
Lungs: Clear no wheeze
Abdomen is soft nontender
Extremities: No cyanosis
Skin is warm no rash
Musculoskeletal exam spine is nontender good range of motion all extremities without deformity
Course
Orders/Labs/Results
Orders:
Orders
04/27/25 06:09
Electrocardiogram (*1) Urgent
Reason for Study: Syncope
04/27/25 06:10
EKG- Treatment ONCE
04/27/25 06:17
CMP [Comprehensive Metabolic Panel] Urgent
Complete Blood Count/With Diff Urgent
04/27/25 07:48
CT Head W/o Iv Contrast Urgent
Comment:
Reason For Exam: fall, syncope
04/27/25 07:49
0.9% Sodium Chloride 500 ml [Nss] 500 ml IV BOLUS
Abnormal Lab Results
04/27/25
06:17
Absolute Lymphs (auto) 1.1 L 10^3/uL
(1.2-3.4)
Absolute Monos (auto) 0.7 H 10^3/uL
(0.1-0.6)
Lymphocytes % 17.2 L %
(20.5-51.1)
Monocytes % 11.7 H %
(1.7-9.3)
Sodium 132 L mmol/L
(135-145)
Glucose 104 H mg/dl
(70-99)
04/27/25 06:17
04/27/25 06:17
Vital Signs
Initial and Last Documented VS:
Initial Vital Signs
Temp Pulse Resp BP Pulse Ox
99.6 F 80 15 145/72 95
04/27/25 06:05 04/27/25 06:05 04/27/25 06:05 04/27/25 06:05 04/27/25 06:05
Last Documented Vital Signs
Temp Pulse Resp BP Pulse Ox
99.6 F 82 17 153/72 94
04/27/25 06:05 04/27/25 07:45 04/27/25 07:45 04/27/25 07:00 04/27/25 07:49
MDM/Problems Addressed
Differential Diagnosis Includes:
Patient presents after a fall with suspected syncope. She has a history of similar in the past related to her orthostasis. Question orthostatic hypotension because fall today. No obvious signs of trauma but given uncertainty of injury, CT of the
head was ordered. Will check EKG and labs. Fluids ordered.
*Pulse Oximetry
SaO2: 94
Oxygen Mode of Delivery: Room air
Patient hypoxic: no
*Critical Care Note
Total Time (30-74mins, 75-104mins- exclusive of procedures): Not Applicable
Update Note
Update Note:
CT head negative. Patient has remained nontoxic here with stable vital signs and normal lab values. She was given half a liter of fluid. No indication for admission. Stable for discharge back to [facility]
ED Attending Note
-
Portions of this chart may have been created with voice recognition software.� Occasional wrong word or��sound alike� substitutions may have occurred due to the inherent limitations of voice recognition software.
Discharge Plan
Departure
Patient Disposition: Home (Routine Discharge)
Date of Disposition: 04/27/25
Time of Disposition: 10:03
Patient with high blood pressure during this ER visit?: No
Discharge Problem:
Fall
Instructions: Syncope (Fainting) (DC)
Prescriptions:
No Action
aripiprazole 2 MG tablet
1 mg PO DAILY
cyanocobalamin (vitamin B-12) [Vitamin B-12] 1,000 mcg Tablet
1,000 mcg PO DAILY
biotin 5,000 mcg Tablet,Disintegrating
5,000 mcg PO DAILY
polyethylene glycol 3350 [Miralax] 17 gram Powder In Packet
17 g PO DAILYPRN PRN (Reason: constipation)
simvastatin 10 mg Tablet
10 mg PO HS
cholecalciferol (vitamin D3) [Vitamin D3] 50 mcg (2,000 unit) Tablet
50 mcg PO DAILY
levothyroxine 75 mcg tablet
75 mcg PO QPM
acetaminophen 325 mg Tablet
650 mg PO Q4HPRN PRN (Reason: mild pain)
alprazolam 0.25 mg Tablet
0.125 mg PO HS
alprazolam 0.25 mg tablet
0.125 mg PO BIDPRN PRN (Reason: anxiety)
mirtazapine 15 mg tablet
15 mg PO HS
Referrals:
Cathleen Ayers, DO [Family Provider, General]
Activity Restrictions/Additional Instructions:
Stay hydrated. Turn if worse otherwise follow-up with your doctor
Interventions
Interventions:
*Risk Screen - Suicide Last Done: 04/27/25 06:10
*General Assessment Last Done: 04/27/25 06:10
*Neglect/Abuse Screening Last Done: 04/27/25 06:10
*ED- Fall Risk Assessment Last Done: 04/27/25 06:11
*ED COVID-19 Vaccine History Last Done: 04/27/25 06:11
*ED Influenza Vaccine History Last Done: 04/27/25 06:11
ED- Cardiac Assessment Last Done: 04/27/25 06:11
ED- Neurological Assessment Last Done: 04/27/25 06:11
Discharge Date and Time
Print Language: [place] ISLAND[place]
[2025-04-27 08:00] VITALS: BP 138/74
[2025-04-27] MEDS: NSS 500 IV (09:05)
[2025-04-27 12:54] LABS: COVID-19 Antigen Negative (Negative)
== END 2025-04-27 12:55 | disposition home or self-care (01) ==
LOC: EMR 06:04
PROVIDERS: Physician Assistant; Student in an Organized Health Care Education/Training Program; EMERGENCY PHYSICIAN Emergency Medicine; FAMILY PHYSICIAN Hospitalist
DX: Z04.3 Encounter for examination and observation following other accident (principal); E78.00 Pure hypercholesterolemia, unspecified; E03.9 Hypothyroidism, unspecified; F32.A Depression, unspecified; M79.7 Fibromyalgia; W19.XXXA Unspecified fall, initial encounter; Y92.122 Bedroom in nursing home as the place of occurrence of the external cause
CPT/HCPCS: 99284; 96360; 70450; 80053; 85025; 87502; 87811; 93005

== ENCOUNTER 2025-05-13 12:22 | Inpatient (IN) | payer MEDICARE, OTHER, SELFPAY ==
[2025-05-13] VITALS (17 sets, daily range): BP systolic 79–200; BP diastolic 45–102; BMI 22.4
--- NOTE | 2025-05-13 09:08 | ED.GENMED ---
Addendum entered and electronically signed by LUIS Heath 05/13/25 15:24:
Please note that pt is not on blood thinners.
Original Note:
History of Present Illness
<LUIS Heath - Last Filed: 05/13/25 11:51>
General
Chief Complaint: Fainting/Passed Out
Source: patient and ambulance crew
Exam Limitations: none
Time Seen by Provider: 05/13/25 08:53
Nursing documentation reviewed up to this point in time: agreed with
History of Present Illness
History of Present Illness:
Patient is a 85-year female with pmh of orthostatic hypotension, parkinsons from [facility] with eating breakfast in the caf� and passed out while seated. She fell and complains of right hip pain. She reports she was sitting and felt very hot
all of a sudden and then she woke up on the floor with right hip pain. She has a history of syncope and was seen here April 27 and Feb 26 for syncope as well. She denies any chest pain prior to injury. She is on a blood thinners. It is
unclear what has caused her syncope in the past.
Past History
<LUIS Heath - Last Filed: 05/13/25 11:51>
Past History
ED Past Medical History: Hypercholesterolemia, Hypothyroidism, Psychiatric (Depression) and Other (Fibromyalgia)
ED Past Surgical History: None
Social History
Tobacco: Non-smoker
Alcohol: None
Drug: None
Personal:
Living: alone
Employment: Retired
Phy Exam
<LUIS Heath - Last Filed: 05/13/25 11:51>
General Physical Exam
General Presentation: no apparent distress
General age: appears stated age
General Skin: warm and dry
General Habitus: elderly
General Mental: alert
General Hydration: appears well hydrated
Cardiovascular Exam
Cardiovascular Exam: regular rate/rhythm, no murmur and normal peripheral pulses
Pulmonary Exam
Pulmonary Exam: lungs clear and no respiratory distress
Neurological Exam
Neurological Exam: alert and oriented x3
Musculoskeletal Exam
Musculoskeletal Exam: other (Right lower extremity is mildly shortened strong pulses pain with any range of motion no obvious head injury on exam no bony C-spine tenderness.)
Skin Exam
Skin Exam: normal color and warm/dry
Psychiatric Exam
Psychiatric Exam: normal mood/affect
Course
<LUIS Heath - Last Filed: 05/13/25 11:51>
Orders/Labs/Results
Orders:
Orders
05/13/25
Electrocardiogram (*1) Stat
Reason for Study: Chest Pain
Comment: DONE
05/13/25 08:53
CT Head W/o Iv Contrast Urgent
Comment:
Reason For Exam: syncope /trauma
IV Insert/Care/Rem.- Treatment PRN
Hip, Right 2-3 Views [CR Hip - RT w/wo Pel 2-3 Vw*] Urgent
Comment:
Reason For Exam: trauma
Include a pelvis x-ray?: Yes
05/13/25 09:05
Complete Blood Count/With Diff Urgent
Comprehensive Metabolic Panel Urgent
05/13/25 09:35
Morphine Sulfate 2 mg IV NOW STA
05/13/25 10:46
Morphine Sulfate 2 mg IV NOW STA
Abnormal Lab Results
05/13/25
09:05
MCHC 32.8 L g/dL
(33.0-37.0)
Monocytes % 10.1 H %
(1.7-9.3)
Sodium 134 L mmol/L
(135-145)
Glucose 110 H mg/dl
(70-99)
05/13/25 09:05
12/02/25 09:05
Vital Signs
Initial and Last Documented VS:
Initial Vital Signs
BP
143/70
05/13/25 08:56
Last Documented Vital Signs
Temp Pulse Resp BP Pulse Ox
98.0 F 74 12 155/77 98
05/13/25 08:59 05/13/25 11:44 05/13/25 11:30 05/13/25 11:00 05/13/25 11:30
<German Taylor, DO - Last Filed: 05/13/25 10:19>
Orders/Labs/Results
Orders:
Orders
05/13/25
Electrocardiogram (*1) Stat
Reason for Study: Chest Pain
Comment: DONE
05/13/25 08:53
CT Head W/o Iv Contrast Urgent
Comment:
Reason For Exam: syncope /trauma
IV Insert/Care/Rem.- Treatment PRN
Hip, Right 2-3 Views [CR Hip - RT w/wo Pel 2-3 Vw*] Urgent
Comment:
Reason For Exam: trauma
Include a pelvis x-ray?: Yes
05/13/25 09:05
Complete Blood Count/With Diff Urgent
Comprehensive Metabolic Panel Urgent
05/13/25 09:35
Morphine Sulfate 2 mg IV NOW STA
05/13/25 10:46
Morphine Sulfate 2 mg IV NOW STA
Abnormal Lab Results
05/13/25
09:05
MCHC 32.8 L g/dL
(33.0-37.0)
Monocytes % 10.1 H %
(1.7-9.3)
Sodium 134 L mmol/L
(135-145)
Glucose 110 H mg/dl
(70-99)
05/13/25 09:05
05/13/25 09:05
Vital Signs
Initial and Last Documented VS:
Initial Vital Signs
BP
143/70
05/13/25 08:56
Last Documented Vital Signs
Temp Pulse Resp BP Pulse Ox
98.0 F 74 12 155/77 98
05/13/25 08:59 05/13/25 11:44 05/13/25 11:30 05/13/25 11:00 05/13/25 11:30
<ULIS Heath - Last Filed: 05/13/25 11:51>
MDM/Problems Addressed
Differential Diagnosis Includes:
Not limited to syncope, hip fracture, head injury, arrhythmia, dehydration, electrolyte abnormality, vasovagal episode
MDM/Problems Addressed:
Patient is a 85-year-old female from assisted living had a witnessed syncopal episode while seated in her chair. She fell and complains of right hip pain. She has an obvious femoral neck fracture on x-ray. She has strong pulses. Her vital signs
are stable.
Patient has a history of Parkinson's and orthostatic hypotension in the past however this episode she was not standing she was sitting in her chair turned to the side but prior to getting up she apparently had a witnessed syncopal episode. She is
not on blood thinners ct head negative. d/c w/ family . pt adm to the hospitalist service. d/c w/ ortho as well .
I spoke to daughter and son over the phone. Daughter is requesting [facility] orthopedic surgeon.
<LUIS Heath - Last Filed: 05/13/25 11:51>
*Radiology
Radiology exam reviewed: radiology read reviewed
*Pulse Oximetry
SaO2: 98
Oxygen Mode of Delivery: Room air
Patient hypoxic: no
*EKG
Interpreted by ED Provider?: Yes
Heart Rate: 71
Rate: normal
Rhythm: sinus
Ischemia: no ischemia
*Critical Care Note
Total Time (30-74mins, 75-104mins- exclusive of procedures): Not Applicable
<LUIS Heath - Last Filed: 05/13/25 11:51>
Patient Management
Discussion with other providers: Thermal Cutter Helper (ortho made aware DR Ling )
ED Attending Note
<LUIS Heath - Last Filed: 05/13/25 11:51>
-
Portions of this chart may have been created with voice recognition software.� Occasional wrong word or��sound alike� substitutions may have occurred due to the inherent limitations of voice recognition software.
<German Taylor DO - Last Filed: 05/13/25 10:19>
ED Attending Note
Patient seen and examined by attending physician: Yes
I performed the substantive portion of visit, reviewed & personally made and approve the management plan that is documented in note by myself or MARCE.: Yes
ED Attending Note:
seen with HAM BONER, agree with a/p
sp fall
right hip fx
Discharge Plan
Departure
Patient Disposition: Admit
Date of Disposition: 05/13/25
Time of Disposition: 10:46
Admit to: Telemetry
Admit to doctor: hospitalist
Presentation/result/management discussed w/ accepting MD/DO: Hospitalist
Patient with high blood pressure during this ER visit?: No
Covid-19: Not Applicable
Discharge Problem:
Syncope, right femoral neck fracture
Prescriptions:
No Action
cyanocobalamin (vitamin B-12) [Vitamin B-12] 1,000 mcg Tablet
1,000 mcg PO DAILY
biotin 5,000 mcg Tablet,Disintegrating
5,000 mcg PO DAILY
polyethylene glycol 3350 [Miralax] 17 gram Powder In Packet
17 g PO DAILYPRN PRN (Reason: constipation)
simvastatin 10 mg Tablet
10 mg PO HS
cholecalciferol (vitamin D3) [Vitamin D3] 50 mcg (2,000 unit) Tablet
50 mcg PO DAILY
levothyroxine 75 mcg tablet
75 mcg PO DAILY
acetaminophen 325 mg Tablet
650 mg PO Q4HPRN PRN (Reason: mild pain)
alprazolam 0.25 mg Tablet
0.125 mg PO HS
alprazolam 0.25 mg tablet
0.125 mg PO BIDPRN PRN (Reason: anxiety)
mirtazapine 30 mg Tablet
30 mg PO HS
carbidopa-levodopa 25-100 mg Tablet
1.5 tab PO BID@0700,1600
carbidopa-levodopa 25-100 mg Tablet
1 tab PO DAILY@1130
Referrals:
Cathleen Ayers, DO [Family Provider, General]
Interventions
Interventions:
*Risk Screen - Suicide Last Done: 05/13/25 11:44
*General Assessment Last Done: 05/13/25 11:44
*Neglect/Abuse Screening Last Done: 05/13/25 11:44
*ED COVID-19 Vaccine History Last Done: 05/13/25 11:44
*ED Influenza Vaccine History Last Done: 05/13/25 11:44
Discharge Date and Time
Print Language: ARABIC
[2025-05-13 09:18] LABS: Hematocrit 43.0 % (37.0-47.0); Hemoglobin 14.1 g/dL (12.0-16.0); Mean Corp Hgb Conc. 32.8 g/dL (33.0-37.0); Mean Corpuscular Volume 90.9 fL (81.0-99.0); Nucleated Red Blood Cells % 0 %; Platelet Count 367 10^3/uL (130-400); Red Cell Dist. Width 13.7 % (11.5-14.5)
[2025-05-13 09:33] LABS: ALT (SGPT) < 10 U/L (0-35); AST (SGOT) 18 U/L (14-36); Albumin 3.6 g/dl (3.5-5.0); Alkaline Phosphatase 74 U/L (38-126); Blood Urea Nitrogen 13 mg/dl (7-17); Calcium 8.9 mg/dl (8.4-10.2); Carbon Dioxide 29 mmol/L (22-30); Chloride 104 mmol/L (98-107); Estimated Creatinine Clearance 42 ml/min; Glucose 110 mg/dl (70-99); Potassium 4.8 mmol/L (3.5-5.1); Sodium 134 mmol/L (135-145); Total Protein 6.3 g/dl (6.3-8.2); eGFR > 60.00
[2025-05-13] MEDS: MORPHINE SULFATE 2 MG IV ×2 (10:00→11:12)
--- NOTE | 2025-05-13 11:02 | EDCM ---
Addendum entered by Maral Murillo 05/13/25 11:34:
Received a call from Teena at [facility], was scheduled to be opened to them today.
Original Note:
Reviewed chart and met with pt bedside in ED. Lives alone in [place] at [facility].
Independent in ADLs, personal care and ambulation at baseline. Uses Rollator, also has RW, shower bench and grab bars in shower.
Son lives in [facility], daughter is living in [place]
Hx [facility]
Hx [facility]
PCP: Cathleen Ayers
Pharmacy: [facility] supplies medications
Disposition pending ongoing medical evaluation, CM will continue to follow for all discharge planning needs.
--- NOTE | 2025-05-13 11:57 | HPS.HSE ---
Addendum entered and electronically signed by Kenisha Morrison MD 05/13/25 14:12:
I have personally seen and examined the patient. I have reviewed the case with the resident Dr. Rene, and I agree with her documentation, including HPI, ROS, exam, data findings, assessment, and plan, except as noted below.
85F with Parkinson's disease/dementia, orthostatic hypotension, presenting from [place] with syncope, found to have right hip fracture.
Orthopedic surgery consulted, plan for OR in the morning, n.p.o. p.m. midnight.
Pt low risk for intermediate risk procedure and can proceed to OR with no further testing.
Monitor for postoperative delirium, control pain, minimize sedating pain medication, frequent reorientation.
Regarding syncope, felt to be secondary to autonomic dysfunction/orthostatic hypotension. Telemetry monitoring, trial of midodrine postoperatively may be necessary.
Original Note:
Family Physician
<Naveed Rene MD, Resident - Last Filed: 05/13/25 13:48>
-
Family Physician: Cathleen Ayers DO
Chief Complaint
<Naveed Rene MD, Resident - Last Filed: 05/13/25 13:48>
-
Femur fracture
History of Present Illness
This is a 85-year-old female with history of Parkinson disease, orthostatic hypotension, hypothyroidism, anxiety/depression, hyperlipidemia, chronic constipation presents from [facility] with right hip pain after syncopal episode. Patient notes
that she was sitting on a chair and having breakfast, she turned around to hold her rollator and passed out. She she woke up with right hip pain. She denies headache, visual loss, chest pain, shortness of breath, palpitations. She notes that she
has had previous syncopal episodes in the past. Not on anticoagulants.
Medical History
<Naveed Rene MD, Resident - Last Filed: 05/13/25 13:48>
Past Medical History
Past Medical History: Reports Other (Hypercholesterolemia, Hypothyroidism, Psychiatric (Depression) and Other (Fibromyalgia))
Past Surgical History: Reports None
Social History
Tobacco: Non-smoker
Alcohol: None
Drug: None
Personal:
Living: [facility]
Employment: Retired
Family History
Family History: Not pertinent
Allergies / Home Medications
Allergies reflects when Allergies were last updated in [facility].
Home Medications with original date entered in [facility]
Allergy/Medication List:
Allergies
Allergy/AdvReac Type Severity Reaction Status Date / Time
amoxicillin (From Augmentin) Allergy Hives Verified 04/27/25 06:10
bacitracin (From Neosporin Allergy Rash Verified 04/27/25 06:10
([id number]))
clavulanic acid (From Allergy Hives Verified 04/27/25 06:10
Augmentin)
neomycin (From Neosporin Allergy Rash Verified 04/27/25 06:10
([id number]))
polymyxin B (From Neosporin Allergy Rash Verified 04/27/25 06:10
([id number]))
sulfamethoxazole (From Allergy Rash Verified 04/27/25 06:10
Bactrim)
Tetracyclines Allergy Rash Verified 04/27/25 06:10
trimethoprim (From Bactrim) Allergy Rash Verified 04/27/25 06:10
Home Medications
biotin 5,000 mcg disintegrating tablet 5,000 mcg PO DAILY Supplement 04/07/22
cyanocobalamin (vitamin B-12) 1,000 mcg tablet (Vitamin B-12) 1,000 mcg PO DAILY Supplement 04/07/22
cholecalciferol (vitamin D3) 50 mcg (2,000 unit) tablet (Vitamin D3) 50 mcg PO DAILY Supplement 04/30/24
polyethylene glycol 3350 17 gram oral powder packet (Miralax) 17 g PO DAILYPRN PRN constipation 04/30/24
simvastatin 10 mg tablet 10 mg PO HS High Cholesterol 04/30/24
levothyroxine 75 mcg tablet 75 mcg PO DAILY Thyroid 07/23/24
acetaminophen 325 mg tablet 650 mg PO Q4HPRN PRN mild pain 10/19/24
alprazolam 0.25 mg tablet 0.125 mg PO BIDPRN PRN anxiety 10/19/24
alprazolam 0.25 mg tablet 0.125 mg PO HS 10/19/24
carbidopa 25 mg-levodopa 100 mg tablet 1 tab PO DAILY@1130 05/13/25
carbidopa 25 mg-levodopa 100 mg tablet 1.5 tab PO BID@0700,1600 05/13/25
mirtazapine 30 mg tablet 30 mg PO HS 05/13/25
Review of Systems
<Naveed Rene MD, Resident - Last Filed: 05/13/25 13:48>
-
History Source: Patient
A 12 point ROS was completed and negative except as noted: Yes
Musculoskeletal: Reports Joint Pain
Physical Exam
<Naveed Rene MD, Resident - Last Filed: 05/13/25 13:48>
Vital Signs
Vital Signs
Temp Pulse Resp BP Pulse Ox
98.0 F 74 12 155/77 98
05/13/25 08:59 05/13/25 11:44 05/13/25 11:30 05/13/25 11:00 05/13/25 11:30
Physical Exam
General: Comfortable and Conversant
HEENT: NormoCephalic and Anicteric
Respiratory: Clear
Cardiac: S1/S2 and Regular Rhythm
GI: Soft, Non Tender and Non Distended
Musculoskeletal: Other (Mild shortened right lower extremity, normal dorsalis pedis, pain with any range of motion, no briuses or injuries notes.)
Skin: Warm and Dry
Neuro: AO x 3
Hematologic/Lymphatic: No Lymphadenopathy
Psych: Calm
Laboratory Results
<Naveed Rene MD, Resident - Last Filed: 05/13/25 13:48>
-
05/13/25 09:05
05/13/25 09:05
Laboratory Results
Total Bilirubin 0.6 mg/dl (0.2-1.3) 05/13/25 09:05
AST 18 U/L (14-36) 05/13/25 09:05
ALT < 10 U/L (0-35) 05/13/25 09:05
Alkaline Phosphatase 74 U/L (38-126) 05/13/25 09:05
Data Reviewed
<Naveed Rene MD, Resident - Last Filed: 05/13/25 13:48>
-
Diagnostic Radiology: Report Reviewed by me and Discussed with Physician
Lab Data: Labs Reviewed by me and Discussed with Physician
Impression/Plan
<Naveed Rene MD, Resident - Last Filed: 05/13/25 13:48>
-
IMPRESSION:
Right femoral neck fracture
History of Parkinson disease
History of orthostatic hypotension
Hypothyroidism
Hyperlipidemia
Chronic constipation
Anxiety/depression
PLAN:
Right femoral neck fracture
Hemodynamically stable
Afebrile, normal white count
Consult orthopedics for potential surgical treatment (internal fixation)
IV fluids, pain control
Hemoglobin 14.1
Monitor HH
Ortho planning for surgery tomorrow
NPO after midnight
#Preoperative risk stratification
RCRI low 0.5%, METS <4
STOP-BANG 0 points, low risk for GHASSAN.
According to NSQIP, risk for postoperative dementia.
History of Parkinson's disease
Continue carbidopa levodopa
History orthostatic hypotension
Not on midodrine
Would benefit from midodrine PO
Trial to initiate midodrine post surgery.
Hypothyroidism
continue levothyroxine
Hyperlipidemia
continue simvastatin
Chronic constipation
continue bowel regime
Anxiety/depression
continue home dose alprazolam BID prn
Continue mirtazapine HS
DNR
SCD
cholesterol low diet
<Kenisha Morrison MD - Last Filed: 05/13/25 14:05>
-
IMPRESSION:
Right femoral neck fracture
History of Parkinson disease
History of orthostatic hypotension
Hypothyroidism
Hyperlipidemia
Chronic constipation
Anxiety/depression
PLAN:
Syncope
suspect 2/2 hypotensive episode/autonomic dysfunction from PD, ddx includes medication AE
has had multiple syncopal episodes and falls
EKG unchanged from prior, troponin not checked. Reviewed EKG from last year, EF 55%, mild LVH, no RWMA
Hemodynamically stable
Hemoglobin 14.1
mild hyponatremia likely not contributing, glucose and other electrolytes wnl
CTH with no acute abnormality, noted b/l acute on chronic maxillary sinusitis but pt asymptomatic, Afebrile, normal white count. No other localizing complaints
tele monitor
Right femoral neck fracture
Consulted orthopedics for potential surgical treatment (internal fixation)
IV fluids, pain control
Monitor HH
Ortho planning for surgery tomorrow
NPO after midnight
Preoperative risk stratification
RCRI low 0.5%, METS <4 . Pt low risk for intermediate risk procedure and can proceed to OR with no further testing.
STOP-BANG 0 points, low risk for GHASSAN.
According to NSQIP, risk for postoperative delirium. Place on delirium protocol.
History of Parkinson's disease
Continue carbidopa levodopa
History orthostatic hypotension
Not on midodrine
Would benefit from midodrine PO
Trial to initiate midodrine post surgery.
Hypothyroidism
continue levothyroxine
Hyperlipidemia
continue simvastatin
Chronic constipation
continue bowel regime
Anxiety/depression
continue home dose alprazolam BID prn
Continue mirtazapine HS
DNR
SCD
cholesterol low diet, NPO p MN
[2025-05-13] MEDS: DILAUDID 0.25 MG IV (14:23)
--- NOTE | 2025-05-13 15:14 | CON.ORTHO ---
Consultation
-
Date/Time Consultation Requested: Jun 05
Date/Time Consultation Performed: Jun 05
Requesting Provider: LUIS Wilburn
Performing Provider: Rachel Ling
Reason for Consultation: Right hip fracture
Consultation - Orthopedics
History
History of Present Illness
Patient is a 85-year female with PMH of orthostatic hypotension, parkinsons, persenting from [facility] after eating breakfast in the caf� and passed out while seated. She fell and complains of right hip pain. She reports she was sitting and felt
very hot all of a sudden and then she woke up on the floor with right hip pain. She has a history of syncope and was seen here April 27 and 26 Feb 2025 for syncope as well. She denies any chest pain prior to injury. She is not on a blood
thinners. It is unclear what has caused her syncope in the past. 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 She denies any previous right hip issues or injuries in the past. Son Edgar is
bedside for the consultation. We were requested in consult given xray findings of right hip fracture
Past Medical History:
Parkinsons
hypothyroidism
Hypercholesterolemia
Hypothyroidism
Depression
Fibromyalgia
Past Surgical History:
None reported
Family History:
Non-contributory
Social History:
Tobacco: Non-smoker
Alcohol: None
Drug: None
Personal:
Living: alone
Employment: Retired
ROS:
12 point negative except for those mentioned in the HPI
Allergies / Home Medications
Allergy/AdvReac Type Severity Reaction Status Date / Time
amoxicillin (From Augmentin) Allergy Hives Verified 04/27/25 06:10
bacitracin (From Neosporin Allergy Rash Verified 04/27/25 06:10
([id number]))
clavulanic acid (From Allergy Hives Verified 04/27/25 06:10
Augmentin)
neomycin (From Neosporin Allergy Rash Verified 04/27/25 06:10
([id number]))
polymyxin B (From Neosporin Allergy Rash Verified 04/27/25 06:10
([id number]))
sulfamethoxazole (From Allergy Rash Verified 04/27/25 06:10
Bactrim)
Tetracyclines Allergy Rash Verified 04/27/25 06:10
trimethoprim (From Bactrim) Allergy Rash Verified 04/27/25 06:10
�Medication �Instructions �Recorded
biotin 5,000 mcg disintegrating 5,000 mcg PO DAILY Supplement 04/07/22
tablet
cyanocobalamin (vitamin B-12) 1,000 mcg PO DAILY Supplement 04/07/22
1,000 mcg tablet (Vitamin B-12)
cholecalciferol (vitamin D3) 50 50 mcg PO DAILY Supplement 04/30/24
mcg (2,000 unit) tablet (Vitamin
D3)
polyethylene glycol 3350 17 gram 17 g PO DAILYPRN PRN constipation 04/30/24
oral powder packet (Miralax)
simvastatin 10 mg tablet 10 mg PO HS High Cholesterol 04/30/24
levothyroxine 75 mcg tablet 75 mcg PO DAILY Thyroid 07/23/24
acetaminophen 325 mg tablet 650 mg PO Q4HPRN PRN mild pain 10/19/24
alprazolam 0.25 mg tablet 0.125 mg PO BIDPRN PRN anxiety 10/19/24
alprazolam 0.25 mg tablet 0.125 mg PO HS 10/19/24
carbidopa 25 mg-levodopa 100 mg 1 tab PO DAILY@1130 05/13/25
tablet
carbidopa 25 mg-levodopa 100 mg 1.5 tab PO BID@0700,1600 05/13/25
tablet
mirtazapine 30 mg tablet 30 mg PO HS 05/13/25
Vital Signs / Lab Results
Temp Pulse Resp BP Pulse Ox
98.0 F 85 12 193/90 95
05/13/25 08:59 05/13/25 13:52 05/13/25 11:30 05/13/25 13:52 05/13/25 13:52
05/13/25 09:05
05/13/25 09:05
Assessment / Plan
PE: Afeb. bedrest ED4. Right hip skin intact. LLE slightly short and ER. Generalized pain to palpation RLE. Deferred ROM due to known fracture. + log roll RLE. Knee nontender. Calf soft, nontender. DNVI RLE
Xrays: RIGHT femoral neck fracture
Impression: STACY
Plan: Discussed with the patient bedside, as well as her son, Edgar. Will place a call to her daughter, Linda, as well, at the request of the patient. Patient fully aware of the nature of her right hip fx and our proposed surgical recommendations.
All operative and non operative management discussed including the RBAs of each form of management. After discussing in further detail, patient has accepted all the proposed risks of surgery and wishes to proceed. Tentative plan for the OR will be
tomorrow for a RIGHT hip hemiarthroplasty under the direction of Dr. Ling, assuming cleared by the attending Hospitalist team. We discussed all the associated post op and rehab in detail and will appreciate CM assistance with disposition with an
eventual return to [facility]. discussed the need for THPs for 6 weeks post-op. Surgical and blood consents have been signed by the patient and left at the OR desk. Operative site has been marked as the right hip. Patient will be NPO pMN tonight
for anticipated surgery tomorrow late morning/early afternoon, again via Dr. Ling. T&S requested. ABX and irrigation products OCTOR. Will follow
[2025-05-13] MEDS: APRESOLINE 5 MG IV (16:33)
--- NOTE | 2025-05-13 17:45 | PTCARENOTE ---
pt arrived to room 5 at 1730. pt transferred to bed via transfer sheet and assistance of 3. bed alarm placed and activated. soft care overlay mattress placed. pt conversant and oriented to time, place and situation. pt oriented to plan of
care, call [place] and fall precautions with verbalized understanding. telemetry placed and reading SR/ST in 90's. care ongoing.
[2025-05-13] MEDS: NSS 1000 IV (18:06)
[2025-05-13] MEDS: SINEMET 25-100 PO (18:18)
[2025-05-13 18:22] LABS: Glucose - Point of Care 119 mg/dl (70-99)
--- NOTE | 2025-05-13 18:31 | RR ---
A Rapid Response was called on this patient, please see Rapid Response form.
--- NOTE | 2025-05-13 18:47 | W.PN.UPDATE ---
Update Note
Progress Note Update
stroke alert called for dysarthria and unresponsiviness
resolution of symtpoms on my eval
nih 0
bg 110's
bp 107/57
temp 101.7
spoke with ofe stroke fellow at [facility]
no tnk
he will review ct brain
rec to obtain cta head and neck
rec to obtain mri
neuro consult
cbc, cmp, bcx, ua/ucx
allergy to amox
start vanc
--- NOTE | 2025-05-13 19:53 | RR ---
A Rapid Response was called on this patient, please see Rapid Response form.
@1800 , pt verbalized she was incontinent and requested pure wick. @1820 entered room and attempted to give pt oral medications and offer a dinner tray. pt was unable to follow commands and only mumbling. lights turned on, head of bed elevated and
pt remained less responsive. unable to answer questions, smile or track with her eyes. Rapid Response and Stroke alert called. VS @[id number], pox on RA 90%. HOB lowered, feet elevated, bedside glucose was 119. oxygen placed-2L NC. VS
[id number], 92-94 on 3L NC. upon arrival of RR team-pt became more alert and able to answer questions. follow commands. TO CT via bed with ICU staff @ 1840. returned to 2S @1902. care ongoing.
[2025-05-13] MEDS: VANCOCIN 530 MG IV (20:29)
--- NOTE | 2025-05-13 21:27 | PHA.VAN.IN ---
Assessment
- Assessment
Renal Function: Appears similar to baseline
Concomitant Antimicrobials: CEFAZOLIN 2GM IV PRE-OP ON 05/14
Plan
- Plan
Initial / Loading Dose: VANCOMYCIN 1500 MG IV ~ 2029
Maintenance Regimen: Dosing by random level.
Monitoring: Random level is scheduled on 05/14 at 0600 w am labs. Pharmacy will follow.
Pharmacokinetics Vancomycin I
- -
Patient Age: 85
Patient Sex: Female
Vancomycin Day #: 1
Indication: Bacteremia
Requesting Provider: Dr Perry Richard
Pertinent Antimicrobial Allergies:
Augmentin w. hives, tetracycline, neosporin, and bactrim w. rash.
Height / Weight:
Height 5 ft 6 in
Actual Weight 63 kg
Pertinent Past Medical History: Pt w. right hip fracture scheduled for OR 05/14
- Vital Signs / Lab Results
Temp Pulse Resp BP Pulse Ox
99.8 F 101 17 168/90 99
05/13/25 19:42 05/13/25 19:42 05/13/25 19:42 05/13/25 19:42 05/13/25 19:42
Lab Results - Hematology
05/13/25
09:05
WBC 6.3
Lab Results - Chemistry
05/13/25
09:05
BUN 13
Creatinine 0.9
Estimated Creat Clear 42
Albumin 3.6
[2025-05-13] MEDS: REMERON 30 MG PO (22:28)
[2025-05-13] MEDS: LIPITOR 10 MG PO (22:29)
[2025-05-13] MEDS: TYLENOL 650 MG PO (22:43)
[2025-05-14] VITALS (15 sets, daily range): BP systolic 130–174; BP diastolic 69–101
[2025-05-14] MEDS: DILAUDID 0.25 MG IV ×3 (05:03→12:27)
[2025-05-14] MEDS: SYNTHROID PO (06:07)
[2025-05-14 06:43] LABS: Hematocrit 42.5 % (37.0-47.0); Hemoglobin 14.3 g/dL (12.0-16.0); Mean Corp Hgb Conc. 33.6 g/dL (33.0-37.0); Mean Corpuscular Volume 89.3 fL (81.0-99.0); Nucleated Red Blood Cells % 0 %; Platelet Count 318 10^3/uL (130-400); Red Cell Dist. Width 14.0 % (11.5-14.5)
[2025-05-14] MEDS: SINEMET 25-100 PO ×2 (07:15→12:00)
[2025-05-14 07:33] LABS: Blood Urea Nitrogen 15 mg/dl (7-17); Calcium 7.8 mg/dl (8.4-10.2); Carbon Dioxide 26 mmol/L (22-30); Chloride 107 mmol/L (98-107); Estimated Creatinine Clearance 42 ml/min; Glucose 86 mg/dl (70-99); Potassium 4.3 mmol/L (3.5-5.1); Sodium 137 mmol/L (135-145); eGFR > 60.00
[2025-05-14] MEDS: VITAMIN B-12 PO (08:00)
[2025-05-14] MEDS: VITAMIN D3 (cholecalciferol) PO (08:00)
--- NOTE | 2025-05-14 08:14 | W.PN.HOSP.TC ---
Today's Communication/Plan
-
OR today
events of overnight noted as below
Assessment / Plan
Assessment / Plan
85F with Parkinson's disease/dementia, orthostatic hypotension, presenting from [place] with syncope, found to have right hip fracture.
Syncope
suspect 2/2 hypotensive episode/autonomic dysfunction from PD, ddx includes medication AE
has had multiple syncopal episodes and falls
EKG unchanged from prior, troponin not checked. Reviewed echo from last year, EF 55%, mild LVH, no RWMA
Hemodynamically stable
Hemoglobin 14.1
mild hyponatremia likely not contributing, glucose and other electrolytes wnl
CTH with no acute abnormality, noted b/l acute on chronic maxillary sinusitis but pt asymptomatic. No other localizing complaints
tele monitor
Right femoral neck fracture
Consulted orthopedics for potential surgical treatment (internal fixation)
IV fluids, pain control
OR with Ortho today
NPO
Preoperative risk stratification
RCRI low 0.5%, METS <4 . Pt low risk for intermediate risk procedure and can proceed to OR with no further testing.
STOP-BANG 0 points, low risk for GHASSAN.
According to NSQIP, risk for postoperative delirium. Place on delirium protocol.
Episode of Acute encephalopathy - resolved
History of Parkinson's disease
Episode was likely due to dementia. CTH and CTA h/n unrevealing. MRI brain is pending.
Continue carbidopa levodopa
neuro Dr. Jorge consulted, rec outpt f/u
Fever
One time episode of fever, Tmax 101.7F, was empirically placed on vanc/cefazolin overnight
Mild leukocytosis, question if reactive in setting of acute fracture.
Noted sinusisits on CTH, if symptomatic could treat with augmentin
BCx, UA/UCx Pending. MRSA screen is pending
History orthostatic hypotension
Not on midodrine
Would benefit from midodrine PO
Trial to initiate midodrine post surgery.
Hypothyroidism
continue levothyroxine
Hyperlipidemia
continue simvastatin
Chronic constipation
continue bowel regime
Anxiety/depression
continue home dose alprazolam BID prn
Continue mirtazapine HS
DVT ppx
SCDs
Anticipated Discharge: > 48 hours
Subjective/Interval History
-
Date of Service: May 14, 2025
There was a rapid response overnight for pt decreased responsiveness, at time of physician's arrival NIH was 0, pt was already being taken down to [facility], which was negative for acute abnormality, they discussed with tele-neuro at [place], and CTA H/N and
MRI brain were ordered and neuro consulted. Pt was back to baseline. Received TT from neuro Dr. Jorge this morning that for her parkinsonism she can rather be followed as outpt.
Pt notes leg pain this morning, denies fever, chills, sinus congestion, sore throat, cough, nausea/vomiting, abdominal pain, diarrhea, dysuria, rash.
Objective Data
-
Labs:
Laboratory Results
05/14/25
06:17
WBC 12.4 H
Hgb 14.3
Hct 42.5
Plt Count 318
Sodium 137
Potassium 4.3
Chloride 107
Carbon Dioxide 26
BUN 15
Creatinine 0.9
Glucose 86
Calcium 7.8 L
Vital Signs:
Vital Signs
Temp Pulse Resp BP Pulse Ox
98.4 F 82 14 144/75 97
05/14/25 07:00 05/14/25 07:00 05/14/25 07:00 05/14/25 07:00 05/14/25 07:00
I&O
05/13/25 05/14/25 05/15/25
06:59 06:59 06:59
Intake Total 1010 / 1010
Balance 1010 / 1010
Review of Systems
-
All other systems: Reviewed and negative
Physical Exam
-
General: No Apparent Distress
HEENT: Moist Mucous Membranes, Anicteric and PERRLA
Respiratory: Clear to Auscultation; Negative Wheezes, Rales or Rhonchi
Cardiac: Regular Rhythm and S1/S2; Negative Murmur, Rub or Gallop
GI: Soft, Nontender, Nondistended and Normal Bowel Sounds
Musculoskeletal: Other (RLE tender, no swelling)
Skin: Warm and Dry; Negative Rash, Ulcers or Lesions
Neuro: Awake and Alert
Hematologic / Lymphatic: No Lymphadenopathy
Psych: Calm and Apparent Dementia
Data Reviewed
-
CT Scan: Report Reviewed by me
Labs: Labs Reviewed by me
[2025-05-14] MEDS: NSS 1000 IV (10:08)
--- NOTE | 2025-05-14 11:04 | PHA.VAN.FU ---
Vancomycin Assessment / Plan
- Assessment
Renal Function: Stable
WBC's are: Trending Up
In the past 24 hrs, patient has been: Afebrile
- Assessment - Therapeutic Drug Monitoring
Random Level: 15.8 DRAWN ABOUT 10 HRS AFTER 1500 MG LOADING DOSE
- Dosing Plan
Adjust Regimen to: 750 MG Q24H- 1ST DOSE NOW THEN 05/15 @0600
New Regimen Predicts: AUC (442), Peak (27.9), Trough (11.3)
- Monitoring Plan
No level(s) ordered at this time: CONSIDER NEXT FEW DAYS
- Follow Up
Pharmacy will continue to follow.
Vancomycin Follow UP
- -
Patient Age: 85
Patient Sex: Female
Vancomycin Day #: 2
Indication: Bacteremia
Requesting Provider: Dr Perry Richard
Pertinent Antimicrobial Allergies:
Augmentin w. hives, tetracycline, neosporin, and bactrim w. rash.
Height / Weight:
Height 5 ft 6 in
Actual Weight 63 kg
Pertinent Past Medical History: Pt w. right hip fracture scheduled for OR 05/14
- Vital Signs / Lab Results
Temp Pulse Resp BP Pulse Ox
98.4 F 82 14 144/75 97
05/14/25 07:00 05/14/25 07:00 05/14/25 07:00 05/14/25 07:00 05/14/25 07:00
Lab Results - Hematology
05/13/25 05/14/25
09:05 06:17
WBC 6.3 12.4 H
Lab Results - Chemistry
05/13/25 05/14/25
09:05 06:17
BUN 13 15
Creatinine 0.9 0.9
Estimated Creat Clear 42 42
Albumin 3.6
Therapeutic Drug Monitoring
Random Vancomycin 15.8 ug/ml 05/14/25 06:17
[2025-05-14] MEDS: VANCOCIN 150 IV (12:16)
[2025-05-14 12:43] LABS: Urine Character Cloudy (Clear)
[2025-05-14 12:50] LABS: Urine Red Blood Cell 0-2 /HPF (0-2); Urine Squamous Cell 0-2 /LPF (Few); Urine White Cell 50-60 /HPF (0-5)
[2025-05-14] MEDS: MORPHINE SULFATE 1 MG IV ×3 (15:56→16:30)
--- NOTE | 2025-05-14 16:21 | CM ---
R hip fracture, R hip hemiarthroplasty on this date 05/14/25. Discharge POC: Awaiting therapy eval and recommendations.
[2025-05-14] MEDS: ASPIRIN 325 MG PO (17:58)
[2025-05-14] MEDS: SINEMET 25-100 1.5 TABLET PO (17:59)
--- NOTE | 2025-05-14 18:20 | PTCARENOTE ---
pt received from PACU to room @1700. pt easily arousable, but drowsy. oriented to room and post op plan of care. call [place] in reach. telemetry reading SR-ST 80-90's. Right hip dressing clean and dry. right foot warm, good sensation, +pulse
noted. care ongoing.
[2025-05-14] MEDS: NSS IV (19:30)
[2025-05-14] MEDS: COLACE 100 MG PO (20:58)
[2025-05-14] MEDS: SENOKOT 17.2 MG PO (20:58)
[2025-05-14] MEDS: BACTROBAN 2% OINTMENT 1 APPLIC NASAL (20:59)
[2025-05-14] MEDS: LIPITOR 10 MG PO (21:00)
[2025-05-14] MEDS: REMERON 30 MG PO (21:00)
[2025-05-14] MEDS: ANCEF 5 IV (23:21)
[2025-05-15] VITALS (8 sets, daily range): BP systolic 142–172; BP diastolic 73–88; PULSE 89–91; O2SAT 93–98
--- NOTE | 2025-05-15 00:31 | TRANSFER ---
Received patient on stretcher from ED at 2350 dx cholelithiasis, patient reported 3/10 pain to gen abd. VS as documented. Assessments completed. Discussed plan of care with patient. IVF as ordered. Call [place] within reach, bed in lowest position.
[2025-05-15] MEDS: VANCOCIN 150 IV (05:39)
[2025-05-15] MEDS: SYNTHROID 75 MCG PO (05:39)
[2025-05-15] MEDS: SINEMET 25-100 1.5 TABLET PO ×2 (06:31→16:51)
[2025-05-15] MEDS: ANCEF 5 IV (06:31)
--- NOTE | 2025-05-15 07:21 | W.PN.ORTHO ---
Today's Communication / Plan
-
PT/OT
Hip precautions
Weightbearing as tolerated with walker
Aspirin/mechanical devices for DVT prophylaxis
Disposition likely half-way facility once medically stable
Skin clips removed 2 weeks postop
Follow-up with orthopedics 1 month postop
Orthopedics will continue to follow
Assessment
.
Distal Motor Intact: Yes
Dressing:
Clean, dry and intact.
Plan
.
Surgery / Date: R hip hemiarthroplasty 05/14 Anuradha
DVT Prophylaxis: Aspirin
Activity:
Out of bed.
PT/OT
Discharge Plan: SNF
Subjective
.
.:
Patient resting comfortably.
Vital Signs and Labs
.
Vital Signs and Labs:
Lab Results
05/14/25 06:17
05/14/25 06:17
Temp Pulse Resp BP Pulse Ox
97.7 F 81 17 153/75 96
05/15/25 03:07 05/15/25 03:07 05/15/25 03:07 05/15/25 03:07 05/15/25 03:07
Non-invasive Hgb result: 12.9
[2025-05-15] MEDS: ASPIRIN 325 MG PO (08:17)
[2025-05-15] MEDS: BACTROBAN 2% OINTMENT 1 APPLIC NASAL ×2 (08:17→19:47)
[2025-05-15] MEDS: COLACE 100 MG PO ×2 (08:17→19:47)
[2025-05-15] MEDS: SENOKOT 17.2 MG PO ×2 (08:17→19:47)
[2025-05-15] MEDS: VITAMIN D3 (cholecalciferol) 50 MCG PO (08:17)
[2025-05-15] MEDS: VITAMIN B-12 1000 MCG PO (08:17)
[2025-05-15] MEDS: ROXICODONE 5 MG PO ×2 (10:00→23:33)
[2025-05-15] MEDS: ROCEPHIN 1000 MG IV (10:01)
[2025-05-15] MEDS: STERILE WATER FOR INJECTION 10 ML IV (10:02)
[2025-05-15] MEDS: SINEMET 25-100 1 TABLET PO (12:17)
--- NOTE | 2025-05-15 13:23 | CM ---
Addendum entered by Santa Leos 05/16/25 14:55:
Ambulance garbage pick up man is [phone]; daughter and facility notified
Addendum entered by Santa Leos 05/16/25 14:28:
Harinder from [facility] spoke w/ patient's daughterLinda
Plan: Discharge to [facility], SNF, via Ambulance today
Report # [phone]

Addendum entered by Santa Leos 05/16/25 13:34:
Sent a text to daughterLinda; instructed her to contact Harinder @ [facility]; phone # provided.
Per Attending, Patient is stable for discharge today via Ambulance
Addendum entered by Santa Leos 05/16/25 13:21:
Left a voice mail for daughterLinda, left a message that [facility] referral was accepted; discharge date/time pending call back from Harinder @ [facility]
Addendum entered by Santa Leos 05/16/25 13:12:
[facility] accepted referral for SNF
Addendum entered by Santa Leos 05/15/25 16:22:
PT/OT recommended SNF.
SNF referrals sent to [facility] and [facility] via [facility] per daughter's request
Original Note:
PT/OT evaluations pending; anticipate that patient will need SNF when stable for discharge
Spoke with patient's daughterLinda, she lives in [place]; phone # [phone].
Daughter is agreeable with discharge to SNF; site options offered; daughter's preferences are [facility] and [facility]
Plan: Discharge to SNF when medically stable pending bed availability
--- NOTE | 2025-05-15 15:11 | W.PN.HOSP.TC ---
Addendum entered and electronically signed by Kenisha Morrison MD 05/23/25 10:21:
for cdi: hypotension only
etiology of hip fracture due to mechanical fall
Original Note:
Today's Communication/Plan
-
Check CBC
Recheck UA/culture, change antibiotic to ceftriaxone
PT/OT, pain control
Assessment / Plan
Assessment / Plan
85F with Parkinson's disease/dementia, orthostatic hypotension, presenting from [place] with syncope, found to have right hip fracture.
Right femoral neck fracture
S/p right hip hemiarthroplasty on 05/14/2025
Routine postop course, pain control with IV Dilaudid PRN, oral oxycodone PRN
PT/OT
WBAT with walker
Outpatient Ortho follow-up in 1 month, skin clips to be removed 2 weeks postop
Syncope
suspect 2/2 hypotensive episode/autonomic dysfunction from PD, ddx includes medication AE
has had multiple syncopal episodes and falls
EKG unchanged from prior, troponin not checked. Reviewed echo from last year, EF 55%, mild LVH, no RWMA
Hemodynamically stable
Hemoglobin 14.1
mild hyponatremia likely not contributing, glucose and other electrolytes wnl
CTH with no acute abnormality, noted b/l acute on chronic maxillary sinusitis but pt asymptomatic. No other localizing complaints
tele monitor
Check CBC
Episode of Acute encephalopathy - resolved
History of Parkinson's disease
Episode was likely due to dementia. CTH and CTA h/n unrevealing. MRI brain is showed no acute abnormality
Continue carbidopa levodopa
neuro Dr. Jorge consulted, rec outpt f/u
Fever
One time episode of fever, Tmax 101.7F, was empirically placed on vanc/cefazolin overnight. MRSA screen negative, Vanc discontinued. Cefazolin was also discontinued, replaced with ceftriaxone
Mild leukocytosis, question if reactive in setting of acute fracture. Check repeat CBC
BCx NGTD, UA consistent with UTI, UCx with normal amaris, repeating UA/UCx
History orthostatic hypotension
Currently hypertensive, could be in setting of pain
Hypothyroidism
continue levothyroxine
Hyperlipidemia
continue simvastatin
Chronic constipation
continue bowel regimen
Anxiety/depression
continue home dose alprazolam BID prn
Continue mirtazapine HS
DVT ppx
Aspirin
Anticipated Discharge: 24 - 48 hours
Subjective/Interval History
-
Date of Service: May 15, 2025
Patient denies any acute issues overnight
Objective Data
-
Labs:
Laboratory Results
05/14/25
06:17
WBC 12.4 H
Hgb 14.3
Hct 42.5
Plt Count 318
Sodium 137
Potassium 4.3
Chloride 107
Carbon Dioxide 26
BUN 15
Creatinine 0.9
Glucose 86
Calcium 7.8 L
Vital Signs:
Vital Signs
Temp Pulse Resp BP Pulse Ox
97.9 F 86 16 158/88 96
05/15/25 08:00 05/15/25 08:00 05/15/25 08:00 05/15/25 08:00 05/15/25 09:47
I&O
05/14/25 05/15/25 05/16/25
06:59 06:59 06:59
Intake Total 1010 / 1010 1974 / 1974
Output Total 550 / 550
Balance 1010 / 1010 1425 / 1425
Review of Systems
-
All other systems: Reviewed and negative
Physical Exam
-
General: No Apparent Distress
HEENT: Moist Mucous Membranes, Anicteric and PERRLA
Respiratory: Clear to Auscultation; Negative Wheezes, Rales or Rhonchi
Cardiac: Regular Rhythm and S1/S2; Negative Murmur, Rub or Gallop
GI: Soft, Nontender, Nondistended and Normal Bowel Sounds
Musculoskeletal: Other (RLE tender, no swelling)
Skin: Warm and Dry; Negative Rash, Ulcers or Lesions
Neuro: Awake and Alert
Hematologic / Lymphatic: No Lymphadenopathy
Psych: Calm and Apparent Dementia
Data Reviewed
-
CT Scan: Report Reviewed by me
Labs: Labs Reviewed by me
[2025-05-15 15:52] LABS: Urine Character Cloudy (Clear)
[2025-05-15 16:07] LABS: Urine Red Blood Cell 0-2 /HPF (0-2); Urine Squamous Cell 0-2 /LPF (Few); Urine White Cell >100 /HPF (0-5)
[2025-05-15] MEDS: REMERON 30 MG PO (22:03)
[2025-05-15] MEDS: LIPITOR 10 MG PO (22:03)
[2025-05-16] MEDS: SYNTHROID 75 MCG PO (05:36)
--- NOTE | 2025-05-16 05:56 | W.PN.ORTHO ---
Today's Communication / Plan
-
85-year-old female POD #2 Right Hip Hemiarthroplasty 05/14/[address] Ling.
- PT/OT
- Hip precautions
- Weightbearing as tolerated with walker
- Aspirin/mechanical devices for DVT prophylaxis
- Disposition likely snf facility once medically stable
- Skin clips removed 2 weeks postop
- Follow-up with orthopedics 1 month postop
- Orthopedics will sign off at this time. Please reengage with any further questions or concerns.
Assessment
.
Distal Motor Intact: Yes
Dressing:
Clean, dry and intact.
Assessment:
POD #2 Right Hip Hemiarthroplasty 05/14/[address] Ling
Plan
.
Surgery / Date: R hip hemiarthroplasty 05/14 Anuradha
DVT Prophylaxis: Aspirin
Activity:
Out of bed.
PT/OT.
Discharge Plan: Other
Discharge Information:
Appreciate CM.
Subjective
.
.:
Patient resting comfortably.
Vital Signs and Labs
.
Vital Signs and Labs:
Temp Pulse Resp BP Pulse Ox
98.9 F 90 18 154/88 94
05/15/25 22:18 05/15/25 22:18 05/15/25 22:18 05/15/25 22:18 05/15/25 22:18
Non-invasive Hgb result: 12.2
[2025-05-16 08:00] VITALS: BP 152/79
[2025-05-16 08:04] LABS: Hematocrit 37.1 % (37.0-47.0); Hemoglobin 11.9 g/dL (12.0-16.0); Mean Corp Hgb Conc. 32.1 g/dL (33.0-37.0); Mean Corpuscular Volume 96.9 fL (81.0-99.0); Platelet Count 281 10^3/uL (130-400); Red Cell Dist. Width 14.3 % (11.5-14.5)
[2025-05-16 08:21] LABS: Blood Urea Nitrogen 21 mg/dl (7-17); Calcium 8.3 mg/dl (8.4-10.2); Carbon Dioxide 30 mmol/L (22-30); Chloride 105 mmol/L (98-107); Estimated Creatinine Clearance 42 ml/min; Glucose 88 mg/dl (70-99); Potassium 4.7 mmol/L (3.5-5.1); Sodium 135 mmol/L (135-145); eGFR > 60.00
[2025-05-16] MEDS: VITAMIN B-12 1000 MCG PO (08:23)
[2025-05-16] MEDS: ASPIRIN 325 MG PO (08:23)
[2025-05-16] MEDS: SENOKOT 17.2 MG PO (08:23)
[2025-05-16] MEDS: VITAMIN D3 (cholecalciferol) 50 MCG PO (08:23)
[2025-05-16] MEDS: COLACE 100 MG PO (08:23)
[2025-05-16] MEDS: SINEMET 25-100 1.5 TABLET PO ×2 (08:25→15:37)
--- NOTE | 2025-05-16 09:02 | PN.CDI ---
CDI
- -
CDI:
Physician Documentation Request
Admit Date: 05/13/25 12:22
Dear Doctor Prince,
Patient admitted with right hip fracture s/p right hemiarthroplasty.
05/15 PN, 'Parkinson's disease.....Syncope....suspect 2/2 hypotensive episode/autonomic dysfunction from PD.'
Based on the above, please you clarify in the progress notes, the appropriate diagnosis, if significant, that supports the above abnormalities and additional evaluation, monitoring and/or treatment rendered:
Neurogenic orthostatic hypotension due to Parkinson's disease
Hypotension only
Other
Use of terms such as suspected, likely, concern for, or probable (associated with a specific diagnosis that is being evaluated, monitored, or treated as if it exists) are acceptable and can be coded in the inpatient setting, when documented at the
time of discharge.
Thank you,
Katerina MATHUR,RN,CCDS
CDI Specialist
Available via [place] text
Please use your independent medical judgment in providing your response.
--- NOTE | 2025-05-16 09:20 | PN.CDI ---
CDI
- -
CDI:
Physician Documentation Request
Admit Date: 05/13/25 12:22
Dear Doctor Prince,
Patient admitted with right hip fracture s/p right hemiarthroplasty.
H&P, 'Patient notes that she was sitting on a chair and having breakfast, she turned around to hold her rollator and passed out.'
08/25/21 Bone Density Survey, 'IMPRESSION: Osteopenia.'
Home med's include Cholecalciferol (vitamin D3) 50 mcg (2,000 unit) tablet (Vitamin D3) 50 mcg PO DAILY
Please provide in your note the likely etiology/ etiologies of the documented right hip fracture:
Multifactorial due to low level fall and age- related osteoporosis.
Low level fall only
Other
Use of terms such as suspected, likely, concern for, or probable (associated with a specific diagnosis that is being evaluated, monitored, or treated as if it exists) are acceptable and can be coded in the inpatient setting, when documented at the
time of discharge.
Thank you,
Katerina MATHUR,RN,CCDS
CDI Specialist
Available via [employer] text
Please use your independent medical judgment in providing your response.
[2025-05-16] MEDS: STERILE WATER FOR INJECTION 10 ML IV (10:21)
[2025-05-16] MEDS: ROCEPHIN 1000 MG IV (10:21)
[2025-05-16] MEDS: SINEMET 25-100 1 TABLET PO (11:28)
--- NOTE | 2025-05-16 15:45 | W.DCSUMMARY ---
Discharge Summary
Discharge Data
Date of Admission: 05/13/25
Date of Discharge: 05/16/25
Total time spent discharging patient (in min): 35
-
Pending Results: No
Hospital Course
Attending physician on day of discharge:
Kenisha Morrison MD
Discharge diagnosis:
Right femoral neck fracture
Secondary diagnoses:
Syncopal episode
Autonomic dysfunction
Parkinson's disease
Orthostatic Attention
Hypothyroidism
Anxiety/depression
Consultations:
Orthopedics
Procedures:
Right hip hemiarthroplasty on 05/14/2025
Hospital course:
85F with Parkinson's disease/dementia, orthostatic hypotension, presenting from [place] with syncope, found to have right hip fracture. Syncope workup was unrevealing, CTh, blood work, EKG, medication review. She had no events on telemetry. This was
felt to be related to her autonomic dysfunction from her Parkinson disease, possible hypotensive episode leading to fall. She had a episode of acute encephalopathy while hospitalized along with a fever which resolved, and she was back to baseline
mental status, stat CTh and CTA head and neck showed no acute abnormality, MRI was done that showed no acute abnormality, neurology was consulted however they recommended outpatient follow-up for her PD. She underwent above procedure with
unremarkable postop course, used as needed oral oxycodone. She also did not experience orthostatic hypotension postoperatively she was mildly hypertensive but she was not given medication for this so as to not cause her to become hypotensive.
Regarding her chronic conditions, her anxiety/depression was controlled, she did not use any alprazolam so this was discontinued.
Physical exam on discharge:
Gen: NAD
HEENT: PERRLA, EOMI, MMM, neck supple
Cards: RRR, no M/G/R
Resp: Lungs CTAB, no W/R/R
GI: soft, NT/ND/NABS
MSK: No edema, right thigh dressing clean dry intact
Skin: warm and dry, no rash, ulcer or lesions
Heme: No LAD
Psych: Calm
Neuro: Alert and awake, dementia
Discharge disposition:
SNF
Discharge Plan
-
Patient Disposition: Penitentiary/SNF
Discharge Diagnosis/Procedures: Right hip fracture
Diet: Regular
Activity: As tolerated and With Walker
Wound Care: Skin clips removed 2 weeks postop
- Follow-up with orthopedics 1 month postop
Referrals:
Cathleen Ayers DO [Family Provider, General]
Deuce Ling MD [Active, Orthopedics] - in two weeks
Prescriptions:
New
aspirin 325 mg Tablet
325 mg PO DAILY Qty: 0 0RF
docusate sodium 100 mg Capsule
100 mg PO BID Qty: 0 0RF
oxycodone 5 mg Tablet
5 mg PO Q4HPRN PRN (Reason: moderate pain) Qty: 5 0RF
Continued
cyanocobalamin (vitamin B-12) [Vitamin B-12] 1,000 mcg Tablet
1,000 mcg PO DAILY
biotin 5,000 mcg Tablet,Disintegrating
5,000 mcg PO DAILY
polyethylene glycol 3350 [Miralax] 17 gram Powder In Packet
17 g PO DAILYPRN PRN (Reason: constipation)
simvastatin 10 mg Tablet
10 mg PO HS
cholecalciferol (vitamin D3) [Vitamin D3] 50 mcg (2,000 unit) Tablet
50 mcg PO DAILY
levothyroxine 75 mcg tablet
75 mcg PO DAILY
acetaminophen 325 mg Tablet
650 mg PO Q4HPRN PRN (Reason: mild pain)
mirtazapine 30 mg Tablet
30 mg PO HS
carbidopa-levodopa 25-100 mg Tablet
1.5 tab PO BID@0700,1600
carbidopa-levodopa 25-100 mg Tablet
1 tab PO DAILY@1130
Discontinued
alprazolam 0.25 mg Tablet
0.125 mg PO HS
alprazolam 0.25 mg tablet
0.125 mg PO BIDPRN PRN (Reason: anxiety)
Discharge Orders:
Discharge Patient (As Directed); Ordered 05/16/25
Ordered By: Kenisha Morrison
Discharge Date and Time
Print Language: TOGOLESE
[2025-05-16 16:00] VITALS: BP 161/87
== END 2025-05-16 18:22 | DRG 522 ==
LOC: 2 SOUTH 12:22
PROVIDERS: Hospitalist; Nurse Practitioner; Student in an Organized Health Care Education/Training Program; ADMITTING PHYSICIAN Internal Medicine; CONSULT PHYSICIAN Orthopaedic Surgery; EMERGENCY PHYSICIAN Emergency Medicine; FAMILY PHYSICIAN Hospitalist
PROC: 0SRR0JA Replacement of Right Hip Joint, Femoral Surface with Synthetic Substitute, Uncemented, Open Approach (ICD-10-PCS; 2025-05-14)
DX: S72.001A Fracture of unspecified part of neck of right femur, initial encounter for closed fracture (principal); E87.1 Hypo-osmolality and hyponatremia; G93.40 Encephalopathy, unspecified; F02.84 Dementia in other diseases classified elsewhere, unspecified severity, with anxiety; F02.83 Dementia in other diseases classified elsewhere, unspecified severity, with mood disturbance; G20.A1 Parkinson's disease without dyskinesia, without mention of fluctuations; R50.9 Fever, unspecified; E03.9 Hypothyroidism, unspecified; F32.A Depression, unspecified; Z66 Do not resuscitate; W19.XXXA Unspecified fall, initial encounter; I95.9 Hypotension, unspecified
CPT/HCPCS: 70450; 70496; 70498; 70551; 73502; 80048; 80053; 80202; 81003; 81015; 82962; 85025; 85027; 86850; 86900; 86901; 87040; 87070; 87086; 93005; 93306; 96374; 96376; 97110; 97116; 97163; 97167; 97535; 99285; C1713; C1776; Q9967